=== PATIENT | female | born 1995 | race Caucasian/White ===

== ENCOUNTER 2020-08-04 01:08 | Emergency (ER) | payer MEDICAID, SELFPAY ==
--- NOTE | ~2020-08-04 | CT_ITS ---
EXAMINATION: CT ABDOMEN AND PELVIS WITH CONTRAST CLINICAL INFORMATION: Abdominal pain with history of kidney stones. COMPARISON: 06/03/2019 TECHNIQUE: Multidetector volumetric images were obtained from the superior aspect of the liver through the pubic symphysis following administration 85 mL of Omnipaque 350 intravenous contrast. Sagittal and coronal reformatted images were obtained on the technologist's workstation. Oral contrast: No This CT examination was performed using dose optimization techniques as appropriate, variously including the following: *Automated exposure control *Adjustment of mA and/or kV according to patient size (this includes techniques or standardized protocols for targeted exams where dose is matched to indication/reason for exam; i.e. extremities or head) *Use of iterative reconstruction technique DLP: 352 mGy-cm FINDINGS: LUNG BASES: The visualized lung bases are unremarkable. LIVER, GALLBLADDER, AND BILIARY TREE: The liver is normal in size, shape, and attenuation. No focal hepatic lesion or biliary ductal dilatation is present. Mild periportal edema. The gallbladder is unremarkable with no evidence of radiopaque gallstones, gallbladder wall thickening, or obvious pericholecystic inflammatory changes. PANCREAS: Unremarkable. SPLEEN: Unremarkable. ADRENAL GLANDS: Unremarkable. KIDNEYS AND URETERS: The kidneys are normal in size, shape, and attenuation. No hydronephrosis, hydroureter, or calculi seen. No perinephric stranding. There is a right lower pole 1.3 cm cyst with simple fluid attenuation. There is small peripheral calcification. BLADDER: Unremarkable. GASTROINTESTINAL TRACT: The stomach is unremarkable. Normal caliber small bowel. There is no obstruction. No colonic wall thickening or acute inflammatory change. No free air. Trace volume of pelvic free fluid. ABDOMINAL WALL: No significant hernia is appreciated. LYMPH NODES: Normal. VASCULAR: Unremarkable. PELVIC VISCERA: Retroverted uterus. No adnexal mass. Small amount of pelvic free fluid. OSSEOUS STRUCTURES: Unremarkable. CT/CT abdomen pelvis w con IMPRESSION: No acute finding in the abdomen or pelvis. No hydronephrosis. Right lower pole renal cyst measuring simple fluid with an associated calcification, likely a Bosniak 2 lesion.
[2020-08-04 01:10] VITALS: BP 120/79; PULSE 68; RESP 14; TEMP 36.5; O2SAT 100; BMI 20.1
[2020-08-04 01:38] LABS: Glucose Urine UA NEG (NEG); Leukocyte Esterase Urine NEG (NEG); Nitrite Urine NEG (NEG); PH 5.5 (5.0-8.0); Specific Gravity - Urine >= 1.030 (1.005-1.025); Urine Blood NEG (NEG); Urine Ketones NEG (NEG); Urine Protein NEG (NEG-TRACE)
[2020-08-04 01:39] LABS: Appearance Urine HAZY; Color Urine DARK YELLOW
[2020-08-04 01:40] LABS: MANUAL DIFF FLAG NO
[2020-08-04 01:41] LABS: Basophils Percent Auto 0.6 % (0-2); Eosinophils Absolute Auto 0.1 X10*3/uL (0.0-0.4); Eosinophils Percent Auto 2.5 % (0-4); Hematocrit 36.5 % (37-47); Hemoglobin 12.1 g/dl (12.0-16.0); Imm Gran Abs Auto 0.01 X10*3/uL (0.00-0.03); Imm Gran Pct Auto 0.2 % (0.0-0.4); Lymphocytes Absolute Auto 2.2 X10*3/uL (1.2-4.9); Lymphocytes Percent Auto 42.8 % (20-40); Mean Corpuscular HGB Conc 33.2 g/dl (31.0-35.0); Mean Corpuscular Hemoglobin 28.9 pg (27.0-33.0); Mean Corpuscular Volume 87.1 fL (80-98); Mean Platelet Volume 9.5 fL (9.4-12.3); Monocytes Absolute Auto 0.4 X10*3/uL (0.1-1.2); Monocytes Percent Auto 7.4 % (2-11); Neutrophils Absolute Auto 2.4 X10*3/uL (2.0-8.3); Neutrophils Percent Auto 46.5 % (45-73); Platelet Count 234 X10*3/uL (160-400); Red Blood Count 4.19 X10*6/uL (4.20-5.50); White Blood Count 5.2 X10*3/uL (4.8-10.8)
--- NOTE | 2020-08-04 01:41 | ED_ITS ---
HPI - Abdominal Pain General Chief Complaint: Abdominal Pain <NELLY Tee - Last Filed: 08/04/20 02:12> Stated Complaint: ABD PAIN <NELLY Tee - Last Filed: 08/04/20 02:12> Time Seen by Provider: 08/04/20 01:16 <NELLY Tee - Last Filed: 08/04/20 02:12> Source: patient, RN notes reviewed and old records reviewed <BRUNO Tee - Last Filed: 08/04/20 02:12> Mode of arrival: ambulatory <NELLY Tee - Last Filed: 08/04/20 02:12> Limitations: no limitations <NELLY Tee - Last Filed: 08/04/20 02:12> History of Present Illness HPI narrative: 25 years old female here today for complaining of upper and lower abdominal pain. Patient reports that the pain is diffuse and intermittent, pain started abruptly. Patient has a history of kidney stone of her right kidney. Seen by Urology before. Patient reports that she had a lithotripsy done before. Her pain started about an hour ago. Patient was at work. 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 Patient describes this pain as a sharp and stabbing pain. Patient thought that she had to go to the bathroom with bowel movement, however patient states that she became diaphoretic and sweaty. Pain then subsided. When in the ER patient reports that she had a diarrhea. Denies eating anything different. Denies any fever or chills. Denies flank pain. <NELLY Tee - Last Filed: 08/04/20 02:12> Related Data Allergies/Adverse Reactions: Allergies Allergy/AdvReac Type Severity Reaction Status Date / Time No Known Allergies Allergy Unverified 12/28/19 18:37 [No Known Allergies*] <NELLY Tee - Last Filed: 08/04/20 02:12> Physical Exam Vital Signs: Vital Signs: Last Vital Signs Temp 97.7 F 08/04/20 01:10 Pulse 68 08/04/20 01:10 Resp 14 08/04/20 01:10 BP 120/79 08/04/20 01:10 Pulse Ox 100 08/04/20 01:10 Body Mass Index 20.1 <NELLY Tee - Last Filed: 08/04/20 02:12> Vital Signs: Last Vital Signs Temp 97.7 F 08/04/20 01:10 Pulse 68 08/04/20 01:10 Resp 14 08/04/20 01:10 BP 120/79 08/04/20 01:10 Pulse Ox 100 08/04/20 01:10 Body Mass Index 20.1 <Deja Barron MD - Last Filed: 08/04/20 03:53> Course Course Course Narrative: 25 years old female with previous history of kidney stones with lithotripsy seen by Urology. Her last procedure was in August of 2019. Patient reports that the pain is the same as the last time when she was diagnosed with kidney stone. Patient reports that she has never had any diagnostic testing lik e renal ultrasound or CT scan. Patient reports that her urologist diagnosed her through her urine with high blood count in her urine. We will medicate her for pain with low-dose Toradol. Hydrate her with fluids. I will order abdominal ultrasound with contrast pending her negative urine test and kidney function test. Report given to Dr. Barron. <NELLY Tee - Last Filed: 08/04/20 02:12> Patient was re-evaluated all vital signs reviewed and workup was reviewed in its entirety. There are no acute findings to suggest intra-abdominal pathologies or UTI. Urine test is negative, and presumptive diagnosis is gastroenteritis with likely component of gastritis. Patient was treated with a GI cocktail and on re-evaluation reports some improvement in her symptoms. She has tolerated oral intake and will be discharged in stable condition with instructions to follow-up with her primary care provider. <Deja Barron MD - Last Filed: 08/04/20 03:53> MDM - Abdominal Pain Lab Data Result diagrams: : 08/04/20 01:35 08/04/20 01:35 <NELLY Tee - Last Filed: 08/04/20 02:12> Labs: Lab Results 04/25/21 04/25/21 04/25/21 Range/Units 01:22 01:22 01:35 WBC 5.2 (4.8-10.8) X10*3/uL RBC 4.19 L (4.20-5.50) X10*6/uL Hgb 12.1 (12.0-16.0) g/dl Hct 36.5 L (37-47) % MCV 87.1 (80-98) fL MCH 28.9 (27.0-33.0) pg MCHC 33.2 (31.0-35.0) g/dl RDW 12.0 (11.0-16.0) % Plt Count 234 (160-400) X10*3/uL MPV 9.5 (9.4-12.3) fL Immature Gran % (Auto) 0.2 (0.0-0.4) % Neut % (Auto) 46.5 (45-73) % Lymph % (Auto) 42.8 H (20-40) % [place] % (Auto) 7.4 (2-11) % Eos % (Auto) 2.5 (0-4) % Baso % (Auto) 0.6 (0-2) % Lymph # (Auto) 2.2 (1.2-4.9) X10*3/uL [place] # (Auto) 0.4 (0.1-1.2) X10*3/uL Eos # (Auto) 0.1 (0.0-0.4) X10*3/uL Baso # (Auto) 0.0 (0.0-0.2) X10*3/uL Abs Immat Gran (auto) 0.01 (0.00-0.03) X10*3/uL Absolute Neuts (auto) 2.4 (2.0-8.3) X10*3/uL Absolute Nucleated RBC 0.000 (0.0-0.012) X10*3/uL Nucleated RBC % (auto) 0.0 (0.0-0.2) /100WBC Hold Blue Top Sodium (135-145) mmol/L Potassium (3.3-5.1) mmol/L Chloride (96-108) mmol/L Carbon Dioxide (22-29) mmol/L Anion Gap (12-20) BUN (9-16) mg/dL Creatinine (0.5-1.4) mg/dL Estim Creat Clear Calc Estimated GFR Random Glucose (60-115) mg/dL Calcium (8.4-10.2) mg/dL Total Bilirubin (0.0-1.0) mg/dL AST (5-31) U/L ALT (0-31) U/L Alkaline Phosphatase (39-117) U/L Total Protein (6.5-8.0) g/dL Albumin (3.5-5.0) g/dL Lipase (8-78) U/L Urine Color DARK YELLOW Urine Appearance HAZY Urine pH 5.5 (5.0-8.0) Ur Specific [place] >= 1.030 H (1.005-1.025) Urine Protein NEG (NEG-TRACE) MG/DL Urine Glucose (UA) NEG (NEG) MG/DL Urine Ketones NEG (NEG) MG/DL Urine Blood NEG (NEG) Urine Nitrite NEG (NEG) Ur Leukocyte Esterase NEG (NEG) Urine RBC 0-2 (0) /HPF Urine WBC 0-2 (0-4) /HPF Ur Squamous Epith Cells 2+ /LPF Calcium Oxalate Crystal 2+ /LPF Urine Bacteria 1+ /LPF Urine Mucus 1+ /LPF Urine Yeast TRACE /HPF Urine Test NEGATIVE (NEGATIVE) 08/04/20 08/04/20 Range/Units 01:35 01:35 WBC (4.8-10.8) X10*3/uL RBC (4.20-5.50) X10*6/uL Hgb (12.0-16.0) g/dl Hct (37-47) % MCV (80-98) fL MCH (27.0-33.0) pg MCHC (31.0-35.0) g/dl RDW (11.0-16.0) % Plt Count (160-400) X10*3/uL MPV (9.4-12.3) fL Immature Gran % (Auto) (0.0-0.4) % Neut % (Auto) (45-73) % Lymph % (Auto) (20-40) % [place] % (Auto) (2-11) % Eos % (Auto) (0-4) % Baso % (Auto) (0-2) % Lymph # (Auto) (1.2-4.9) X10*3/uL [place] # (Auto) (0.1-1.2) X10*3/uL Eos # (Auto) (0.0-0.4) X10*3/uL Baso # (Auto) (0.0-0.2) X10*3/uL Abs Immat Gran (auto) (0.00-0.03) X10*3/uL Absolute Neuts (auto) (2.0-8.3) X10*3/uL Absolute Nucleated RBC (0.0-0.012) X10*3/uL Nucleated RBC % (auto) (0.0-0.2) /100WBC Hold Blue Top SEE NOTE Sodium 140 (135-145) mmol/L Potassium 3.6 (3.3-5.1) mmol/L Chloride 106 (96-108) mmol/L Carbon Dioxide 24 (22-29) mmol/L Anion Gap 14 (12-20) BUN 10 (9-16) mg/dL Creatinine 0.71 (0.5-1.4) mg/dL Estim Creat Clear Calc 94.5 Estimated GFR > 60 Random Glucose 106 (60-115) mg/dL Calcium 9.3 (8.4-10.2) mg/dL Total Bilirubin 0.5 (0.0-1.0) mg/dL AST 15 (5-31) U/L ALT 14 (0-31) U/L Alkaline Phosphatase 47 (39-117) U/L Total Protein 7.1 (6.5-8.0) g/dL Albumin 4.4 (3.5-5.0) g/dL Lipase 14 (8-78) U/L Urine Color Urine Appearance Urine pH (5.0-8.0) Ur Specific [place] (1.005-1.025) Urine Protein (NEG-TRACE) MG/DL Urine Glucose (UA) (NEG) MG/DL Urine Ketones (NEG) MG/DL Urine Blood (NEG) Urine Nitrite (NEG) Ur Leukocyte Esterase (NEG) Urine RBC (0) /HPF Urine WBC (0-4) /HPF Ur Squamous Epith Cells /LPF Calcium Oxalate Crystal /LPF Urine Bacteria /LPF Urine Mucus /LPF Urine Yeast /HPF Urine Test (NEGATIVE) <Dipika Rushing, [employer] - Last Filed: 08/04/20 02:12> Lab Results 08/04/20 08/04/20 08/04/20 Range/Units 01:22 01:22 01:35 WBC 5.2 (4.8-10.8) X10*3/uL RBC 4.19 L (4.20-5.50) X10*6/uL Hgb 12.1 (12.0-16.0) g/dl Hct 36.5 L (37-47) % MCV 87.1 (80-98) fL MCH 28.9 (27.0-33.0) pg MCHC 33.2 (31.0-35.0) g/dl RDW 12.0 (11.0-16.0) % Plt Count 234 (160-400) X10*3/uL MPV 9.5 (9.4-12.3) fL Immature Gran % (Auto) 0.2 (0.0-0.4) % Neut % (Auto) 46.5 (45-73) % Lymph % (Auto) 42.8 H (20-40) % [place] % (Auto) 7.4 (2-11) % Eos % (Auto) 2.5 (0-4) % Baso % (Auto) 0.6 (0-2) % Lymph # (Auto) 2.2 (1.2-4.9) X10*3/uL [place] # (Auto) 0.4 (0.1-1.2) X10*3/uL Eos # (Auto) 0.1 (0.0-0.4) X10*3/uL Baso # (Auto) 0.0 (0.0-0.2) X10*3/uL Abs Immat Gran (auto) 0.01 (0.00-0.03) X10*3/uL Absolute Neuts (auto) 2.4 (2.0-8.3) X10*3/uL Absolute Nucleated RBC 0.000 (0.0-0.012) X10*3/uL Nucleated RBC % (auto) 0.0 (0.0-0.2) /100WBC Hold Blue Top Sodium (135-145) mmol/L Potassium (3.3-5.1) mmol/L Chloride (96-108) mmol/L Carbon Dioxide (22-29) mmol/L Anion Gap (12-20) BUN (9-16) mg/dL Creatinine (0.5-1.4) mg/dL Estim Creat Clear Calc Estimated GFR Random Glucose (60-115) mg/dL Calcium (8.4-10.2) mg/dL Total Bilirubin (0.0-1.0) mg/dL AST (5-31) U/L ALT (0-31) U/L Alkaline Phosphatase (39-117) U/L Total Protein (6.5-8.0) g/dL Albumin (3.5-5.0) g/dL Lipase (8-78) U/L Urine Color DARK YELLOW Urine Appearance HAZY Urine pH 5.5 (5.0-8.0) Ur Specific [place] >= 1.030 H (1.005-1.025) Urine Protein NEG (NEG-TRACE) MG/DL Urine Glucose (UA) NEG (NEG) MG/DL Urine Ketones NEG (NEG) MG/DL Urine Blood NEG (NEG) Urine Nitrite NEG (NEG) Ur Leukocyte Esterase NEG (NEG) Urine RBC 0-2 (0) /HPF Urine WBC 0-2 (0-4) /HPF Ur Squamous Epith Cells 2+ /LPF Calcium Oxalate Crystal 2+ /LPF Urine Bacteria 1+ /LPF Urine Mucus 1+ /LPF Urine Yeast TRACE /HPF Urine Test NEGATIVE (NEGATIVE) 08/04/20 08/04/20 Range/Units 01:35 01:35 WBC (4.8-10.8) X10*3/uL RBC (4.20-5.50) X10*6/uL Hgb (12.0-16.0) g/dl Hct (37-47) % MCV (80-98) fL MCH (27.0-33.0) pg MCHC (31.0-35.0) g/dl RDW (11.0-16.0) % Plt Count (160-400) X10*3/uL MPV (9.4-12.3) fL Immature Gran % (Auto) (0.0-0.4) % Neut % (Auto) (45-73) % Lymph % (Auto) (20-40) % [place] % (Auto) (2-11) % Eos % (Auto) (0-4) % Baso % (Auto) (0-2) % Lymph # (Auto) (1.2-4.9) X10*3/uL [place] # (Auto) (0.1-1.2) X10*3/uL Eos # (Auto) (0.0-0.4) X10*3/uL Baso # (Auto) (0.0-0.2) X10*3/uL Abs Immat Gran (auto) (0.00-0.03) X10*3/uL Absolute Neuts (auto) (2.0-8.3) X10*3/uL Absolute Nucleated RBC (0.0-0.012) X10*3/uL Nucleated RBC % (auto) (0.0-0.2) /100WBC Hold Blue Top SEE NOTE Sodium 140 (135-145) mmol/L Potassium 3.6 (3.3-5.1) mmol/L Chloride 106 (96-108) mmol/L Carbon Dioxide 24 (22-29) mmol/L Anion Gap 14 (12-20) BUN 10 (9-16) mg/dL Creatinine 0.71 (0.5-1.4) mg/dL Estim Creat Clear Calc 94.5 Estimated GFR > 60 Random Glucose 106 (60-115) mg/dL Calcium 9.3 (8.4-10.2) mg/dL Total Bilirubin 0.5 (0.0-1.0) mg/dL AST 15 (5-31) U/L ALT 14 (0-31) U/L Alkaline Phosphatase 47 (39-117) U/L Total Protein 7.1 (6.5-8.0) g/dL Albumin 4.4 (3.5-5.0) g/dL Lipase 14 (8-78) U/L Urine Color Urine Appearance Urine pH (5.0-8.0) Ur Specific [place] (1.005-1.025) Urine Protein (NEG-TRACE) MG/DL Urine Glucose (UA) (NEG) MG/DL Urine Ketones (NEG) MG/DL Urine Blood (NEG) Urine Nitrite (NEG) Ur Leukocyte Esterase (NEG) Urine RBC (0) /HPF Urine WBC (0-4) /HPF Ur Squamous Epith Cells /LPF Calcium Oxalate Crystal /LPF Urine Bacteria /LPF Urine Mucus /LPF Urine Yeast /HPF Urine Test (NEGATIVE) <Deja Barron MD - Last Filed: 08/04/20 03:53> Discharge Plan Discharge Clinical Impression: Gastroenteritis, Gastritis <Dipika Salas DIANELYS RushingJENNIFER - Last Filed: 08/04/20 02:12> Patient Disposition: Home, Self-Care <Dipika NELLY Larkin - Last Filed: 08/04/20 02:12> Instructions: Gastritis (ED), Diet for Stomach Ulcers and Gastritis (ED), Gastroenteritis (ED) <DipikaDIANELYS QuachJENNIFER - Last Filed: 08/04/20 02:12> Additional Instructions: Please follow-up with your primary care provider in the next 2-3 days for re-evaluation. Return to the emergency department for any acute worsening of your symptoms. <NELLY Tee - Last Filed: 08/04/20 02:12> Referrals: [facility] [Primary Care Provider] - 2 days (Re-evaluation after seen for suspected gastritis/gastroenteritis.) <DipikaDIANELYS QuachJENNIFER - Last Filed: 08/04/20 02:12> PMFSH Past Medical History Medical History: Medical History (Updated 08/04/20 @ 03:53 by Deja Barron MD) Kidney stone <DipikaBRUNO QuachSAMY - Last Filed: 08/04/20 02:12> Social History Social History: Social History (Updated 08/04/20 @ 01:14 by Ade Singh RN) Alcohol intake: never Smoking Status: Never smoker Have you been hit, kicked, punched, or otherwise hurt by someone within the past year? If so, by whom?: No Do you feel safe in your current relationship?: No Current Relationship Is there a partner from a previous relationship who is making you feel unsafe now?: No Are you made to feel afraid or neglected: No Advance Directives: No <BRUNO TeeSAMY - Last Filed: 08/04/20 02:12>
[2020-08-04] MEDS: Ketorolac Tromethamine 15 MG/ML VIAL IVPUSH (01:42)
[2020-08-04] MEDS: 0.9 % Sodium Chloride 1,000 ML 999 ML IV (01:42)
[2020-08-04 02:08] LABS: Bacteria Urine 1+ /LPF; Calcium Oxalate Crystals Urine 2+ /LPF; Mucus Urine 1+ /LPF; RBC Urine 0-2 /HPF (0); Squamous Epithelial Cell Urine 2+ /LPF; WBC Urine 0-2 /HPF (0-4)
[2020-08-04 02:14] LABS: UPreg QC Valid YES; Urine Pregnancy NEGATIVE (NEGATIVE)
[2020-08-04 02:18] LABS: Alanine Aminotransferase 14 U/L (0-31); Albumin Level 4.4 g/dL (3.5-5.0); Alkaline Phosphatase 47 U/L (39-117); Anion Gap 14 (12-20); Aspartate Amino Transferase 15 U/L (5-31); Bilirubin Total 0.5 mg/dL (0.0-1.0); Blood Urea Nitrogen 10 mg/dL (9-16); Calcium 9.3 mg/dL (8.4-10.2); Carbon Dioxide 24 mmol/L (22-29); Chloride 106 mmol/L (96-108); Creatinine Clr Calc Pharmacy 94.5; Estimated Glomerular Filt Rate > 60; Glucose Random 106 mg/dL (60-115); Lipase 14 U/L (8-78); Potassium 3.6 mmol/L (3.3-5.1); Sodium 140 mmol/L (135-145); Total Protein 7.1 g/dL (6.5-8.0)
[2020-08-04] MEDS: iohexoL 350 MG/ML 100 ML INFUS..BTL 85 ML IV (02:47)
--- NOTE | 2020-08-04 03:23 | PC.NURSE ---
PT RETURNS FROM CT. NS UP AND INFUSED W/O DIFFICULTY. PT C/O PAIN TO ABD AREA. MD AWARE. WILL CONTINUE TO MONITOR PT.
[2020-08-04] MEDS: Magnesium Hydrox/Alum Hydrox 30 ML ORAL.SUSP PO (04:00)
[2020-08-04] MEDS: Lidocaine HCl Viscous 2 % 15 ML SOLUTION 10 ML MUCOUS MEM (04:00)
== END 2020-08-04 04:13 | disposition home or self-care (01) ==
PROVIDERS: Nurse Practitioner Family; Emergency Provider Student in an Organized Health Care Education/Training Program
DX: K52.9 Noninfective gastroenteritis and colitis, unspecified (principal); R10.9 Unspecified abdominal pain; K29.70 Gastritis, unspecified, without bleeding; Z87.442 Personal history of urinary calculi; Z79.899 Other long term (current) drug therapy
CPT/HCPCS: 36415; 74177; 80053; 81001; 81025; 83690; 85025; 96360; 96361; 99283; 99284; J1885; Q9967

== ENCOUNTER 2020-08-27 09:13 | Outpatient (REF) | payer MEDICAID, SELFPAY ==
[2020-08-28 10:05] LABS: CT PCR NOT DETECTED (Not Detect.); NG PCR NOT DETECTED (Not Detect.)
[2020-08-31 11:36] LABS: HPV 16 RNA NOT DETECTED (NOT DETECTED); HPV mRNA E6/E7 rflx Detected (Not Detected)
== END 2020-08-27 09:14 | disposition home or self-care (01) ==
LOC: HO.LAB 09:13
PROVIDERS: Visit Provider Advanced Practice Midwife
DX: Z23 Encounter for immunization (principal); Z12.4 Encounter for screening for malignant neoplasm of cervix; Z11.51 Encounter for screening for human papillomavirus (HPV); Z11.3 Encounter for screening for infections with a predominantly sexual mode of transmission; Z87.42 Personal history of other diseases of the female genital tract; Z87.59 Personal history of other complications of pregnancy, childbirth and the puerperium
CPT/HCPCS: 87491; 87591; 87624; 87625; 88142; 90471

== ENCOUNTER → 2020-10-31 11:00 | Outpatient (BNVA) | payer MEDICAID, SELFPAY | PROVIDERS: Visit Provider Advanced Practice Midwife | DX: Z23 Encounter for immunization (principal) | CPT/HCPCS: 90471; 99211 ==

== ENCOUNTER 2021-02-13 21:14 | Emergency (ER) | payer MEDICAID, SELFPAY ==
--- NOTE | ~2021-02-13 | XR_ITS ---
EXAMINATION: XR CHEST CLINICAL INFORMATION: . Shortness of breath. COMPARISON: None TECHNIQUE: Frontal view of the chest was obtained. FINDINGS: The lungs are clear. The cardiomediastinal silhouette is normal in size. There is no pleural effusion or pneumothorax. No acute osseous abnormality. XR/XR chest 1V IMPRESSION: No acute cardiopulmonary findings.
[2021-02-13 21:17] VITALS: BP 120/68; PULSE 100; RESP 24; TEMP 36.6; O2SAT 100; BMI 22.8
[2021-02-13 21:47] LABS: COVID-19 Test Negative (Negative)
--- NOTE | 2021-02-13 22:24 | ECG_ITS ---
Test Reason : chest pain Blood Pressure : / mmHG Vent. Rate : 093 BPM Atrial Rate : 093 BPM P-R Int : 132 ms QRS Dur : 082 ms QT Int : 342 ms P-R-T Axes : 070 036 043 degrees QTc Int : 425 ms Normal sinus rhythm Normal ECG No previous ECGs available Referred By: Faviola Mohr Electronically Signed By:AMELIA MARKS MD
[2021-02-13 22:51] LABS: MANUAL DIFF FLAG NO
--- NOTE | 2021-02-13 22:51 | ED_ITS ---
HPI - URI/Sore Throat General Chief Complaint: Upper Respiratory Symptoms Stated Complaint: dry cough Time Seen by Provider: 02/13/21 22:06 Source: patient Mode of arrival: ambulatory History of Present Illness HPI Narrative: 25-year-old female at 5 weeks gestation presenting to the ED complaining of dry cough and SOB x a few days. Reports feels like she cannot catch her breath, used boyfriend albuterol inhaler without relief. Denies f ever, chills, chest pain medically edema calf pain, history of blood clots, cigarette smoking, abdominal pain, vaginal bleeding, vaginal discharge MD elicited complaint: cough Related Data Previous Rx's Medication Instructions Recorded vitamin with calcium 1 tab PO DAILY #90 tab 08/27/20 no.72-iron 27 mg-folic acid 1 mg tablet ( Vitamins Plus Low Iron) Allergies Allergy/AdvReac Type Severity Reaction Status Date / Time No Known Allergies Allergy Verified 08/27/20 09:25 [No Known Allergies*] Review of Systems Review of Systems: Constitutional: No Fever, No Chills, No Fatigue, No Malaise ENT/Mouth: No Ear Pain, No Nasal Congestion, No sore throat, No Rhinorrhea Eyes: No Eye Pain, No Swelling, No Redness Cardiovascular: No Chest Pain, + SOB, No Dyspnea on Exertion, No Orthopnea, No Edema, + Palpitations Respiratory: + Cough, No Sputum, No Wheezing, No Smoke Exposure, No Dyspnea Gastrointestinal: No Nausea, No Vomiting, No Diarrhea, No Constipation, No Abdominal pain Genitourinary: No irregular bleeding, No Dysuria,No Hematuria Musculoskeletal: No joint pain, No Myalgias, No Joint Swelling Skin: No Skin Lesions, No rash Neuro: No Weakness,No Dizziness, No Headache Yes all other systems are reviewed and are negative [facility] Past Medical History Attestation statement: The following information was validated with the patient. Medical History Kidney stone Social History Social History (Updated 08/27/20 @ 09:26 by Farzad Hebert CMA) Alcohol intake: never Advance Directives: No Advance Directives Information Provided: No Patient : Yes Gender identity: Female Physical Exam Vital Signs: Vital Signs: Last Vital Signs Temp 97.8 F 02/13/21 21:17 Pulse 100 02/13/21 21:17 Resp 24 H 02/13/21 21:17 BP 120/68 02/13/21 21:17 Pulse Ox 100 02/13/21 21:17 Body Mass Index 22.8 Const: General: cooperative, healthy appearing and no acute distress Orientation/consciousness: patient oriented x3 Limitations: no limitations HENMT: Head: Yes normal to inspection Ears: hearing grossly normal bilaterally General nose exam: Normal external nose present Face and sinus: Yes normal facial exam Eyes: General: appearance normal, both eyes and all related structures EOM: EOMs intact bilaterally Neck: Neck: Yes normal visual inspection and Yes no meningeal signs Resp: Effort & Inspection: normal respiratory effort, no respiratory distress and tachypneic Auscultation: clear to auscultation bilaterally, no crackles, no rales, no rhonchi and no wheezes Cardio: Rate: regular rate Heart sounds: S1 normal heart sound present and S2 normal heart sound present GI: Inspection: Yes normal to inspection Palpation (GI): Soft to palpation and nontender Skin: Rashes: no rashes Wounds: no wounds Neuro: General: patient oriented x3 and no meningeal signs Gait exam (Neuro): Normal gait present Extrem: General: Yes normal to inspection, Yes no pedal edema and Yes no calf tenderness Course Course Course Narrative: XR chest 1V IMPRESSION: No acute cardiopulmonary findings. -chronic leukopenia of 4 6, H/H stable. -COVID-19 negative -2345--D-dimer negative, PE unlikely, troponin negative, labs otherwise unremarkable. Discussed with patient worrisome signs and symptoms and strict return precautions and need to follow-up with OBGYN, she verbalized understanding feel safe for discharge home at this time MDM - URI/Sore Throat MDM Narrative Medical decision making narrative: 25-year-old female at 5 weeks gestation presenting to the ED complaining of dry cough and SOB x a few days. Reports feels like she cannot catch her breath, used boyfriend albuterol inhaler without relief. On exam tachypneic, heart rate of 100, NAD, lungs CTA, no pedal edema/calf tenderness. Patient denies any related complaints at this time. Concern for viral syndrome/COVID-19 vs PE. Symptoms atypical for ACS. Rule out pneumonia Low concern for severe sepsis Plan: EKG, labs, D-dimer, CXR, re-evaluate Medical Records Attestation: I reviewed the patient's medical records. Lab Data Attestation: I reviewed the patient's lab results. Result diagrams: 02/13/21 22:45 02/13/21 22:45 Labs: Lab Results 02/13/21 02/13/21 02/13/21 Range/Units 21:25 22:45 22:45 WBC 4.6 L (4.8-10.8) X10*3/uL RBC 4.11 L (4.20-5.50) X10*6/uL Hgb 12.0 (12.0-16.0) g/dl Hct 36.0 L (37.0-47.0) % MCV 87.6 (80.0-98.0) fL MCH 29.2 (27.0-33.0) pg MCHC 33.3 (31.0-35.0) g/dl RDW 12.4 (11.0-16.0) % Plt Count 228 (160-400) X10*3/uL MPV 9.3 L (9.4-12.3) fL Immature Gran % (Auto) 0.2 (0.0-0.4) % Neut % (Auto) 52.5 (45-73) % Lymph % (Auto) 32.0 (20-40) % [place] % (Auto) 11.7 H (2-11) % Eos % (Auto) 3.0 (0-4) % Baso % (Auto) 0.6 (0-2) % Lymph # (Auto) 1.5 (1.2-4.9) X10*3/uL [place] # (Auto) 0.5 (0.1-1.2) X10*3/uL Eos # (Auto) 0.1 (0.0-0.4) X10*3/uL Baso # (Auto) 0.0 (0.0-0.2) X10*3/uL Abs Immat Gran (auto) 0.01 (0.00-0.03) X10*3/uL Absolute Neuts (auto) 2.4 (2.0-8.3) x10*3/uL Absolute Nucleated RBC 0.000 (0.0-0.012) X10*3/uL Nucleated RBC % (auto) 0.0 (0.0-0.2) /100WBC D-Dimer < 200 NG/ML Sodium (135-145) mmol/L Potassium (3.3-5.1) mmol/L Chloride (96-108) mmol/L Carbon Dioxide (22-29) mmol/L Anion Gap (12-20) BUN (9-16) mg/dL Creatinine (0.5-1.4) mg/dL Estim Creat Clear Calc Estimated GFR Random Glucose (60-115) mg/dL Calcium (8.4-10.2) mg/dL Troponin I High Sens (<3.5-17.0) ng/L Beta HCG, Quant mIU/mL COVID-19 ([facility]) Negative (Negative) COVID-19 Clin Com See Note 02/13/21 02/13/21 Range/Units 22:45 22:45 WBC (4.8-10.8) X10*3/uL RBC (4.20-5.50) X10*6/uL Hgb (12.0-16.0) g/dl Hct (37.0-47.0) % MCV (80.0-98.0) fL MCH (27.0-33.0) pg MCHC (31.0-35.0) g/dl RDW (11.0-16.0) % Plt Count (160-400) X10*3/uL MPV (9.4-12.3) fL Immature Gran % (Auto) (0.0-0.4) % Neut % (Auto) (45-73) % Lymph % (Auto) (20-40) % [place] % (Auto) (2-11) % Eos % (Auto) (0-4) % Baso % (Auto) (0-2) % Lymph # (Auto) (1.2-4.9) X10*3/uL [place] # (Auto) (0.1-1.2) X10*3/uL Eos # (Auto) (0.0-0.4) X10*3/uL Baso # (Auto) (0.0-0.2) X10*3/uL Abs Immat Gran (auto) (0.00-0.03) X10*3/uL Absolute Neuts (auto) (2.0-8.3) x10*3/uL Absolute Nucleated RBC (0.0-0.012) X10*3/uL Nucleated RBC % (auto) (0.0-0.2) /100WBC D-Dimer NG/ML Sodium 138 (135-145) mmol/L Potassium 3.8 (3.3-5.1) mmol/L Chloride 107 (96-108) mmol/L Carbon Dioxide 23 (22-29) mmol/L Anion Gap 12 (12-20) BUN 8 L (9-16) mg/dL Creatinine 0.69 (0.5-1.4) mg/dL Estim Creat Clear Calc 97.7 Estimated GFR > 60 Random Glucose 95 (60-115) mg/dL Calcium 9.0 (8.4-10.2) mg/dL Troponin I High Sens < 3.5 (<3.5-17.0) ng/L Beta HCG, Quant 70647 mIU/mL COVID-19 ([facility]) (Negative) COVID-19 Clin Com ECG Data Attestation: I personally reviewed and interpreted this ECG as follows: ECG interpretation date: 02/13/21 ECG interpretation time: 22:38 Interpretation: EKG normal sinus rhythm with a rate of 93. QRS 82. QTC 425 Nonischemic-no STEMI Discharge Plan Discharge Clinical Impression: Upper respiratory infection Patient Disposition: Home, Self-Care Instructions: Viral Syndrome (ED) Additional Instructions: Your blood work and chest x-ray were reassuring today in the emergency department You tested negative for COVID-19 Please stay hydrated at home Is very important for you to follow-up with her OBGYN If her symptoms persist or worsen, have constant worsening shortness of breath, chest pain, fever, chills, or productive cough please return to the ED Prescriptions: No Action Vitamin Plus Low Iron 27 mg iron- 1 mg tablet 1 tab PO DAILY Qty: 90 RF: 3 Referrals: Physician,Esteban J [Primary Care Provider] - 2 days Ryan Jacobs MD [Physician] - 2 days
[2021-02-13 22:53] LABS: Basophils Percent Auto 0.6 % (0-2); Eosinophils Absolute Auto 0.1 X10*3/uL (0.0-0.4); Imm Gran Abs Auto 0.01 X10*3/uL (0.00-0.03); Imm Gran Pct Auto 0.2 % (0.0-0.4); Lymphocytes Absolute Auto 1.5 X10*3/uL (1.2-4.9); Mean Corpuscular HGB Conc 33.3 g/dl (31.0-35.0); Mean Corpuscular Hemoglobin 29.2 pg (27.0-33.0); Mean Corpuscular Volume 87.6 fL (80.0-98.0); Mean Platelet Volume 9.3 fL (9.4-12.3); Monocytes Absolute Auto 0.5 X10*3/uL (0.1-1.2); Monocytes Percent Auto 11.7 % (2-11); Neutrophils Absolute Auto 2.4 x10*3/uL (2.0-8.3); Neutrophils Percent Auto 52.5 % (45-73); Platelet Count 228 X10*3/uL (160-400); Red Blood Count 4.11 X10*6/uL (4.20-5.50); Red Cell Distribution Width 12.4 % (11.0-16.0); White Blood Count 4.6 X10*3/uL (4.8-10.8)
[2021-02-13 23:08] LABS: Anion Gap 12 (12-20); Blood Urea Nitrogen 8 mg/dL (9-16); Carbon Dioxide 23 mmol/L (22-29); Chloride 107 mmol/L (96-108); Creatinine Clr Calc Pharmacy 97.7; D Dimer < 200 NG/ML; Estimated Glomerular Filt Rate > 60; Glucose Random 95 mg/dL (60-115); Potassium 3.8 mmol/L (3.3-5.1); Sodium 138 mmol/L (135-145)
[2021-02-13 23:16] LABS: HCG Quantitative 13534 mIU/mL
[2021-02-13 23:34] LABS: Troponin-I High Sensitivity < 3.5 ng/L (<3.5-17.0)
== END 2021-02-14 00:51 | disposition home or self-care (01) ==
PROVIDERS: Physician Assistant; Emergency Provider Internal Medicine
DX: O99.511 Diseases of the respiratory system complicating pregnancy, first trimester (principal); J06.9 Acute upper respiratory infection, unspecified; Z3A.01 Less than 8 weeks gestation of pregnancy; Z20.822 Contact with and (suspected) exposure to COVID-19
CPT/HCPCS: 36415; 71045; 80048; 84484; 84702; 85025; 85379; 87635; 93005; 99283; 99284

== ENCOUNTER → 2021-02-20 09:05 | Outpatient (BNVA) | payer MEDICAID, SELFPAY | PROVIDERS: Visit Provider Advanced Practice Midwife | DX: Z34.90 Encounter for supervision of normal pregnancy, unspecified, unspecified trimester (principal); R05.9 Cough, unspecified; R87.820 Cervical low risk human papillomavirus (HPV) DNA test positive; Z87.798 Personal history of other (corrected) congenital malformations | CPT/HCPCS: 99212 ==

== ENCOUNTER 2021-02-21 12:42 | Outpatient (REF) | payer MEDICAID, SELFPAY ==
--- NOTE | ~2021-02-21 | US_ITS ---
EXAMINATION: OBSTETRICAL ULTRASOUND, FIRST TRIMESTER HISTORY: 25-year-old at the approximately 6 weeks of gestation Uncertain dates and viability LMP: 01/04/2021 COMPARISON: None TECHNIQUE: Real time transabdominal imaging with color and M-mode Doppler. FINDINGS: A single, live IUP CRL of 5.6 mm c/w 6.3wks is noted. Heart Rate: 124 beats per minute. Both maternal ovaries are seen and appear normal. GESTATIONAL AGE: 1. GA from LMP: 6.6 wks 2. GA from AUA: 6.3 wks ESTIMATED DATE OF DELIVERY: 1. MALVIN from LMP: 10/11/2021 2. MALVIN from AUA: 10/14/2021 US/US OB pelvic and transvaginal IMPRESSION: 1. A single live IUP 2. CRL corresponds to 6.3 weeks of gestation. This confirms her LMP based MALVIN of 10/11/2021 3. Normal ovaries Thank you very much for this referral. This note was generated with a voice recognition program. Please excuse any errors which may have been overlooked during my review of this note. Sometimes these errors may affect the content or meaning of a given sentence.
== END 2021-02-21 12:43 | disposition home or self-care (01) ==
LOC: HO.US 12:42
PROVIDERS: Visit Provider Obstetrics & Gynecology
DX: Z34.90 Encounter for supervision of normal pregnancy, unspecified, unspecified trimester (principal)
CPT/HCPCS: 76801; 76817

== ENCOUNTER → 2021-02-26 15:06 | Outpatient (BNVA) | payer MEDICAID, SELFPAY | PROVIDERS: Visit Provider Obstetrics & Gynecology | DX: Z34.90 Encounter for supervision of normal pregnancy, unspecified, unspecified trimester (principal) | CPT/HCPCS: 99212 ==

== ENCOUNTER 2021-03-17 14:01 | Outpatient (REF) | payer MEDICAID, SELFPAY ==
[2021-03-17 15:48] LABS: Hematocrit 33.5 % (37.0-47.0); Hemoglobin 11.3 g/dl (12.0-16.0); Mean Corpuscular HGB Conc 33.7 g/dl (31.0-35.0); Mean Corpuscular Hemoglobin 29.4 pg (27.0-33.0); Mean Platelet Volume 9.6 fL (9.4-12.3); Platelet Count 228 X10*3/uL (160-400); Red Blood Count 3.85 X10*6/uL (4.20-5.50); Red Cell Distribution Width 12.6 % (11.0-16.0); White Blood Count 4.8 X10*3/uL (4.8-10.8)
[2021-03-17 16:31] LABS: Syphilis Screen Nonreactive (Nonreactive)
[2021-03-17 17:11] LABS: Amphetamine Screen Urine Not Detected (Not Detect); Barbiturates, Urine Not Detected (Not Detect); Benzodiazepines Screen Urine Not Detected (Not Detect); Cannabinoid Screen Urine Not Detected (Not Detect); Cocaine Screen Urine Not Detected (Not Detect); Fentanyl, urine Not Detected (Not Detect); Opiate Screen Urine Not Detected (Not Detect); Phencyclidine Screen Urine Not Detected (Not Detect)
[2021-03-18 04:15] LABS: HBsAGNum1 0.27 S/CO (0.00-0.99); HIV AB/AG Nonreactive (Nonreactive); HIV Num 1 0.08 S/CO (0.00-0.99); Hepatitis B Surface Antigen Negative (Negative); ~HepC Num1 0.13 S/CO (0.00-0.79); ~Hepatitis C Antibody Nonreactive (Nonreactive)
[2021-03-19 05:01] LABS: Rubella IgG Antibody 2.93 Index
== END 2021-03-17 14:02 | disposition home or self-care (01) ==
LOC: HO.LAB 14:01
PROVIDERS: Visit Provider Advanced Practice Midwife
DX: Z34.91 Encounter for supervision of normal pregnancy, unspecified, first trimester (principal); Z3A.09 9 weeks gestation of pregnancy
CPT/HCPCS: 80307; 85027; 86762; 86780; 86787; 86803; 86850; 86900; 86901; 87086; 87340; 87389; 99212

== ENCOUNTER 2021-03-28 13:28 | Outpatient (REF) | payer MEDICAID, SELFPAY ==
--- NOTE | ~2021-03-28 | US_ITS ---
EXAMINATION: OBSTETRICAL ULTRASOUND, FIRST TRIMESTER HISTORY: 25-year-old at the 11.6 weeks of gestation NT screening COMPARISON: 02/21/2021 TECHNIQUE: Real time transabdominal imaging with color and M-mode Doppler. FINDINGS: A single, live IUP CRL of 51.7 mm c/w 12.0wks is noted. Heart Rate: 163 beats per minute. Normal yolk sac seen. NT was 1.15.mm. NB Present The embryo appears sonographically wnl for this GA. Both maternal ovaries are seen and appear normal. GESTATIONAL AGE: 1. Established GA: 11.6 wks 2. GA from AUA: 12.0 wks ESTIMATED DATE OF DELIVERY: 1. Established MALVIN: 10/11/2021 2. MALVIN from AUA: 10/10/2021 US/US OB 1T nuc measure IMPRESSION: 1. Single, live IUP 2. Size equals dates 3. NT of 1.15 mm MFM Consultation: I reviewed the ultrasound findings along with significance of NT measurement. The NT of less than 3mm is generally reassuring. However, the sensitivity for T21 detection is only 60%. I reviewed the availability of serum aneuploidy screening which includes cell-free DNA and placental protein based tests. I discussed the sensitivity, false-positive rate, and other limitations associated with each test. I also reviewed the availability of invasive diagnostic tests that are associated small but definite risk of miscarriage. We also reviewed the differences between screening tests and diagnostic tests. After our discussion, she opted for the First trimester screening that is based on cell-free DNA or non-invasive testing (NIPT). The result will be faxed to your office in approximately 7 days. A follow up at 18 weeks for survey has been scheduled. Thank you very much for this referral. Total time 20 minutes. The time spent was devoted to counseling the patient about the disease and diagnosis, coordinating care including reviewing her records, pertinent lab data and studies, as well as discussing diagnostic evaluation and workup, plan therapeutic interventions and future disposition of care. This includes any additional research needed to obtain further information in formulating the plan of care of this patient. This note was generated with a voice recognition program. Please excuse any errors which may have been overlooked during my review of this note. Sometimes these errors may affect the content or meaning of a given sentence.
== END 2021-03-28 13:29 | disposition home or self-care (01) ==
LOC: HO.US 13:28
PROVIDERS: Visit Provider Advanced Practice Midwife
DX: Z87.798 Personal history of other (corrected) congenital malformations (principal)
CPT/HCPCS: 76813

== ENCOUNTER 2021-04-14 08:58 | Outpatient (REF) | payer MEDICAID, SELFPAY ==
[2021-04-14 14:56] LABS: CT PCR NOT DETECTED (Not Detect.); NG PCR NOT DETECTED (Not Detect.)
[2021-04-15 08:32] LABS: BV Int Neg Control Negative (Negative); BV Int Pos Control Positive (Positive)
== END 2021-04-14 08:59 | disposition home or self-care (01) ==
LOC: HO.LAB 08:58
PROVIDERS: Visit Provider Advanced Practice Midwife
DX: O99.891 Other specified diseases and conditions complicating pregnancy (principal); N87.0 Mild cervical dysplasia; O23.01 Infections of kidney in pregnancy, first trimester; N20.0 Calculus of kidney; Z3A.13 13 weeks gestation of pregnancy; Z87.798 Personal history of other (corrected) congenital malformations; Z87.42 Personal history of other diseases of the female genital tract
CPT/HCPCS: 87480; 87491; 87510; 87591; 87660; 99212

== ENCOUNTER → 2021-05-12 10:43 | Outpatient (BNVA) | payer MEDICAID, SELFPAY | PROVIDERS: Visit Provider Advanced Practice Midwife | DX: O99.012 Anemia complicating pregnancy, second trimester (principal); D64.9 Anemia, unspecified; O99.342 Other mental disorders complicating pregnancy, second trimester; F41.9 Anxiety disorder, unspecified; F32.A Depression, unspecified; O09.292 Supervision of pregnancy with other poor reproductive or obstetric history, second trimester; Z3A.17 17 weeks gestation of pregnancy; Z79.899 Other long term (current) drug therapy | CPT/HCPCS: 81003; 99212 ==

== ENCOUNTER 2021-05-16 12:17 | Outpatient (REF) | payer MEDICAID, SELFPAY ==
--- NOTE | ~2021-05-16 | US_ITS ---
EXAMINATION: US OBSTETRICAL CLINICAL INFORMATION: 26-year-old at the 18.6 weeks of gestation Screening for anomaly COMPARISON: 03/28/2021 TECHNIQUE: Real-time transabdominal ultrasound was performed using C1-5 megahertz transducer. FINDINGS: A single, active, fetus is seen in vertex presentation. The placenta is posterior without previa, and the amniotic fluid volume is wnl. MEASUREMENTS: 1. Biparietal Diameter: 3. cm; 18.0 wks 2. Occipital Frontal Diameter: 5.2 cm 3. Head Circumference: 15.4 cm; 18.3 wks 4. Abdominal Circumference: 12.6 cm; 18.2 wks 5. Femur Length: 2.6 cm; 18.1 wks 6. Humerus Length: 2.6 cm; 18.1 wks 7. Tibia Length: 2.4 cm; 8.4 wks 8. Ulna Length: 2.5 cm; 19.0 wks 9. Lateral ventricle: 0.7 cm 10. Cerebellum: 1.8 cm; 18.6 wks 11. Cisterna Magna: 0.51 cm 12. Nuchal Fold: 3.0 mm 13. Heart Rate: 146 beats per minute Rt ovary: normal Lt ovary: normal Cervical length 4.0 cm on T/A. GESTATIONAL AGE: 1. Established GA: 18.6 wks 2. GA from [facility]: 18.2 wks ESTIMATED DATE OF DELIVERY: 1. Established MALVIN: 10/11/2021 2. MALVIN from [facility]: 10/15/2021 ANATOMY: The visualized anatomy includes but not limited to: 1. Cranium: Normal 2. Intracranial anatomy: cavum septum pellucidi, lateral ventricles, choroid plexus, cerebellum, posterior fossa, third and fourth ventricles. 3. face: orbits, lip/palate, profile, nasal bone 4. Heart: four-chamber view of the heart, ventricular septum, foramen ovale, pulmonary vein, left and right outflow tracts, three-vessel view, 3 vessel trachea view, aortic and ductal arches, situs.. 5. Diaphragm: Normal 6. Abdominal wall: Normal 7. Cord Insertion: Normal 8. Spine: Cervical, thoracic, lumbar, sacral. 9. Stomach: Normal size and shape 10. Right Kidney: Normal 11. Left Kidney: Normal 12. 3 vessel cord: Normal 13. Upper extremity: Open hands, fifth digit. 14. Lower extremity: Tibia, fibula, bilateral feet. 15. Bladder: Normal 16. Genitalia: Male, patient aware US/US OB /maternal detail IMPRESSION: 1. Single, living, intrauterine with appropriate biometry. 2. Normal survey DISCUSSION: I reviewed today's ultrasound findings. We discussed the limitations of ultrasound in diagnosing aneuploidy and other congenital abnormalities. I reviewed the differences between screening test and diagnostic test. Amniocentesis was discussed and declined. She was informed that the baseline incidence of congenital abnormalities is approximately 3-5%. Not all these conditions are diagnosable in utero. RECOMMENDATIONS: 1. Follow-up when necessary. Thank you for allowing me to participate in her care. Total time 30 minutes. The time spent was devoted to counseling the patient about the disease and diagnosis, coordinating care including reviewing her records, pertinent lab data and studies, as well as discussing diagnostic evaluation and workup, plan therapeutic interventions and future disposition of care. This includes any additional research needed to obtain further information in formulating the plan of care of this patient. This note was generated with a voice recognition program. Please excuse any errors which may have been overlooked during my review of this note. Sometimes these errors may affect the content or meaning of a given sentence.
== END 2021-05-16 12:18 | disposition home or self-care (01) ==
LOC: HO.US 12:17
PROVIDERS: Visit Provider Obstetrics & Gynecology
DX: O09.299 Supervision of pregnancy with other poor reproductive or obstetric history, unspecified trimester (principal); Z3A.00 Weeks of gestation of pregnancy not specified
CPT/HCPCS: 76811

== ENCOUNTER → 2021-06-09 10:39 | Outpatient (BNVA) | payer MEDICAID, SELFPAY | PROVIDERS: Visit Provider Advanced Practice Midwife | DX: O99.342 Other mental disorders complicating pregnancy, second trimester (principal); F32.A Depression, unspecified; F41.9 Anxiety disorder, unspecified; O36.5920 Maternal care for other known or suspected poor fetal growth, second trimester, not applicable or unspecified; O98.312 Other infections with a predominantly sexual mode of transmission complicating pregnancy, second trimester; A63.0 Anogenital (venereal) warts; Z3A.21 21 weeks gestation of pregnancy | CPT/HCPCS: 81003; 99212 ==

== ENCOUNTER 2021-07-02 13:06 | Outpatient (REF) | payer MEDICAID, SELFPAY ==
[2021-07-02 15:17] LABS: Hematocrit 32.3 % (37.0-47.0); Hemoglobin 10.7 g/dl (12.0-16.0); Mean Corpuscular HGB Conc 33.1 g/dl (31.0-35.0); Mean Corpuscular Hemoglobin 29.8 pg (27.0-33.0); Mean Platelet Volume 10.2 fL (9.4-12.3); Platelet Count 192 X10*3/uL (160-400); Red Blood Count 3.59 X10*6/uL (4.20-5.50); Red Cell Distribution Width 12.6 % (11.0-16.0)
[2021-07-02 15:37] LABS: Glucose 1 Hour PP 50gm Dose 117 mg/dL (60-140)
[2021-07-02 16:05] LABS: Syphilis Screen Nonreactive (Nonreactive)
== END 2021-07-02 13:07 | disposition home or self-care (01) ==
LOC: HO.LAB 13:06
PROVIDERS: Visit Provider Advanced Practice Midwife
DX: Z34.92 Encounter for supervision of normal pregnancy, unspecified, second trimester (principal)
CPT/HCPCS: 36415; 85027; 86780

== ENCOUNTER → 2021-07-07 13:33 | Outpatient (BNVA) | payer MEDICAID, SELFPAY | PROVIDERS: Visit Provider Advanced Practice Midwife | DX: O09.292 Supervision of pregnancy with other poor reproductive or obstetric history, second trimester (principal); Z3A.25 25 weeks gestation of pregnancy; Z87.42 Personal history of other diseases of the female genital tract | CPT/HCPCS: 81003; 99212 ==

== ENCOUNTER 2021-07-11 10:59 | Outpatient (REF) | payer MEDICAID, SELFPAY ==
--- NOTE | ~2021-07-11 | US_ITS ---
EXAMINATION: OBSTETRICAL ULTRASOUND, Follow up HISTORY: 26-year-old at 26.6 weeks of gestation History of FGR Size date discrepancy COMPARISON: 05/16/2021 TECHNIQUE: Real time transabdominal imaging with color and M-mode Doppler. PRESENTATION: Breech PLACENTA LOCATION: Posterior without previa AMNIOTIC FLUID: D [employer] 4.5 cm MEASUREMENTS: 1. Biparietal Diameter: 6.5 cm; 26.1 wks 2. Head Circumference: 24.3 cm; 26.3 wks 3. Abdominal Circumference: 21.5 cm; 26.0 wks 4. Femur Length: 5.0 cm; 26.6 wks 5. Heart Rate: 158 beats per minute WEIGHT: EFW: 918 grams (2 lbs 0 oz) -- 19 %. GESTATIONAL AGE: 1. Established GA: 26.6 wks 2. GA from AUA: 26.3 wks ESTIMATED DATE OF DELIVERY: 1. Established MALVIN: 10/11/2021 2. MALVIN from AUA: 10/14/2021 US/US OB follow up IMPRESSION: 1. A single active fetus is in breech presentation 2. Size equals dates ( EFW 19%) 3. Normal amniotic fluid volume According to the patient, she delivered her first at 37 weeks by induction for FGR. The weight was 6 lbs. 1 oz. He is doing well. In this , her fundal height was smaller than expected. I reviewed today's findings as well as the limitations of ultrasound and estimating weights. Approximately 70-80% of fetuses whose EFW is at or below 10th percentile are constitutionally small but healthy fetuses who are growing to their full genetic potential. Approximately 20-30% may be experiencing of growth restriction due to placental insufficiency. I reassured her that, on today's examination, there is no suspicion for FGR. The amniotic fluid volume is within normal limits and the fetus is active. Given her history, follow-up has been scheduled in 4 weeks. Thank you very much for this referral. Total time 30 minutes. The time spent was devoted to counseling the patient about the disease and diagnosis, coordinating care including reviewing her records, pertinent lab data and studies, as well as discussing diagnostic evaluation and workup, plan therapeutic interventions and future disposition of care. This includes any additional research needed to obtain further information in formulating the plan of care of this patient. This note was generated with a voice recognition program. Please excuse any errors which may have been overlooked during my review of this note. Sometimes these errors may affect the content or meaning of a given sentence.
== END 2021-07-11 11:00 | disposition home or self-care (01) ==
LOC: HO.US 10:59
PROVIDERS: Visit Provider Advanced Practice Midwife
DX: O09.292 Supervision of pregnancy with other poor reproductive or obstetric history, second trimester (principal); Z3A.26 26 weeks gestation of pregnancy; Z87.42 Personal history of other diseases of the female genital tract
CPT/HCPCS: 76816

== ENCOUNTER 2021-07-29 13:57 | Outpatient (REF) | payer MEDICAID, SELFPAY ==
[2021-07-29 15:50] LABS: Hematocrit 34.3 % (37.0-47.0); Hemoglobin 11.3 g/dl (12.0-16.0); Mean Corpuscular HGB Conc 32.9 g/dl (31.0-35.0); Mean Corpuscular Hemoglobin 29.7 pg (27.0-33.0); Mean Corpuscular Volume 90.3 fL (80.0-98.0); Mean Platelet Volume 10.3 fL (9.4-12.3); Platelet Count 188 X10*3/uL (160-400); Red Cell Distribution Width 12.9 % (11.0-16.0); White Blood Count 5.5 X10*3/uL (4.8-10.8)
[2021-07-29 16:09] LABS: Glucose 1 Hour PP 50gm Dose 120 mg/dL (60-140)
[2021-07-30 08:18] LABS: Syphilis Screen Nonreactive (Nonreactive)
== END 2021-07-29 13:58 | disposition home or self-care (01) ==
LOC: HO.LAB 13:57
PROVIDERS: Visit Provider Advanced Practice Midwife
DX: O09.292 Supervision of pregnancy with other poor reproductive or obstetric history, second trimester (principal); Z87.42 Personal history of other diseases of the female genital tract
CPT/HCPCS: 36415; 85027; 86780

== ENCOUNTER → 2021-08-05 13:20 | Outpatient (BNVA) | payer MEDICAID, SELFPAY | PROVIDERS: Visit Provider Advanced Practice Midwife | DX: O26.893 Other specified pregnancy related conditions, third trimester (principal); K59.00 Constipation, unspecified; Z13.31 Encounter for screening for depression; Z3A.30 30 weeks gestation of pregnancy | CPT/HCPCS: 81003; 99212 ==

== ENCOUNTER 2021-08-08 12:40 | Outpatient (REF) | payer MEDICAID, SELFPAY ==
--- NOTE | ~2021-08-08 | US_ITS ---
EXAMINATION: OBSTETRICAL ULTRASOUND, Follow up HISTORY: 26-year-old at the 30.6 weeks of gestation History of IUGR Size date discrepancy COMPARISON: 07/11/2021 TECHNIQUE: Real time transabdominal imaging with color and M-mode Doppler. PRESENTATION: Breech PLACENTA LOCATION: Posterior without previa AMNIOTIC FLUID: SAUL 14.4 cm MEASUREMENTS: 1. Biparietal Diameter: 7.7 cm; 30.6 wks 2. Head Circumference: 28.4 cm; 31.1 wks 3. Abdominal Circumference: 27.4 cm; 31.4 wks 4. Femur Length: 5.7 cm; 29.6 wks 5. Heart Rate: 146 beats per minute WEIGHT: EFW: 1662 grams (3 lbs 11 oz) -- 39 %. BIOPHYSICAL PROFILE: Motion: 2 Tone: 2 Breathin Amniotic Fluid: 2 Total score: 8/8 GESTATIONAL AGE: 1. Established GA: 30.6 wks 2. GA from AUA: 30.6 wks ESTIMATED DATE OF DELIVERY: 1. Established MALVIN: 10/11/2021 2. MALVIN from AUA: 10/11/2021 US/US OB follow up IMPRESSION: 1. A single active fetus is in vertex presentation 2. Size equals dates 3. Reassuring BPP Compared to the exam on 07/11/2021, there has been an appropriate interval growth. Thank you very much for this referral. This note was generated with a voice recognition program. Please excuse any errors which may have been overlooked during my review of this note. Sometimes these errors may affect the content or meaning of a given sentence.
== END 2021-08-08 12:41 | disposition home or self-care (01) ==
LOC: HO.US 12:40
PROVIDERS: Visit Provider Advanced Practice Midwife
DX: O09.293 Supervision of pregnancy with other poor reproductive or obstetric history, third trimester (principal); Z3A.30 30 weeks gestation of pregnancy
CPT/HCPCS: 76816

== ENCOUNTER → 2021-08-26 13:38 | Outpatient (BNVA) | payer MEDICAID, SELFPAY | PROVIDERS: Visit Provider Advanced Practice Midwife | DX: Z34.83 Encounter for supervision of other normal pregnancy, third trimester (principal); Z3A.33 33 weeks gestation of pregnancy | CPT/HCPCS: 81003; 99212 ==

== ENCOUNTER 2021-09-19 11:41 | Outpatient (REF) | payer MEDICAID, SELFPAY ==
[2021-09-20 03:24] LABS: CT PCR NOT DETECTED (Not Detect.); NG PCR NOT DETECTED (Not Detect.)
== END 2021-09-19 11:42 | disposition home or self-care (01) ==
LOC: HO.LAB 11:41
PROVIDERS: Visit Provider Advanced Practice Midwife
DX: O09.293 Supervision of pregnancy with other poor reproductive or obstetric history, third trimester (principal); Z3A.36 36 weeks gestation of pregnancy
CPT/HCPCS: 87081; 87147; 87491; 87591; 99212

== ENCOUNTER 2021-09-26 12:14 | Outpatient (REF) | payer MEDICAID, SELFPAY ==
--- NOTE | ~2021-09-26 | US_ITS ---
EXAMINATION: OBSTETRICAL ULTRASOUND, Follow up HISTORY: 26-year-old at the 36.6 weeks of gestation History of IUGR Size date discrepancy COMPARISON: 08/08/2021 TECHNIQUE: Real time transabdominal imaging with color and M-mode Doppler. PRESENTATION: Vertex PLACENTA LOCATION: Posterior without previa AMNIOTIC FLUID: SAUL 18.0 cm MEASUREMENTS: 1. Biparietal Diameter: 8.8 cm; 35.3 wks 2. Head Circumference: 33.4 cm; 38.2 wks 3. Abdominal Circumference: 33.6 cm; 37.4 wks 4. Femur Length: 6.92 cm; 35.4 wks 5. Heart Rate: 144 beats per minute WEIGHT: EFW: 3019 grams (6 lbs 10 oz) -- 32 %. BIOPHYSICAL PROFILE: Motion: 2 Tone: 2 Breathin Amniotic Fluid: 2 Total score: 8/8 GESTATIONAL AGE: 1. Established GA: 37.0 wks 2. GA from AUA: 36.5 wks ESTIMATED DATE OF DELIVERY: 1. Established MALVIN: 10/11/2021 2. MALVIN from AUA: 10/19/2021 US/US OB follow up IMPRESSION: 1. A single active fetus is in vertex presentation 2. Size equals dates 3. Reassuring BPP and SAUL Thank you very much for this referral. This note was generated with a voice recognition program. Please excuse any errors which may have been overlooked during my review of this note. Sometimes these errors may affect the content or meaning of a given sentence.
== END 2021-09-26 12:15 | disposition home or self-care (01) ==
LOC: HO.US 12:14
PROVIDERS: Visit Provider Advanced Practice Midwife
DX: O09.299 Supervision of pregnancy with other poor reproductive or obstetric history, unspecified trimester (principal); O99.820 Streptococcus B carrier state complicating pregnancy; Z79.899 Other long term (current) drug therapy
CPT/HCPCS: 76816; 99212

== ENCOUNTER → 2021-10-03 09:47 | Outpatient (BNVA) | payer MEDICAID, SELFPAY | PROVIDERS: Visit Provider Advanced Practice Midwife | DX: Z34.83 Encounter for supervision of other normal pregnancy, third trimester (principal); Z3A.38 38 weeks gestation of pregnancy | CPT/HCPCS: 99212 ==

== ENCOUNTER → 2021-10-10 11:22 | Outpatient (BNVA) | payer MEDICAID, SELFPAY | PROVIDERS: Visit Provider Advanced Practice Midwife | DX: O99.820 Streptococcus B carrier state complicating pregnancy (principal); Z3A.39 39 weeks gestation of pregnancy | CPT/HCPCS: 81003; 99212 ==

== ENCOUNTER → 2021-10-15 09:52 | Outpatient (BNVA) | payer MEDICAID, SELFPAY | PROVIDERS: Visit Provider Advanced Practice Midwife | DX: O36.5930 Maternal care for other known or suspected poor fetal growth, third trimester, not applicable or unspecified (principal); O99.343 Other mental disorders complicating pregnancy, third trimester; F41.8 Other specified anxiety disorders; O99.820 Streptococcus B carrier state complicating pregnancy; O35.8XX0 Maternal care for other (suspected) fetal abnormality and damage, not applicable or unspecified; Z3A.40 40 weeks gestation of pregnancy | CPT/HCPCS: 81003; 99212 ==

== ENCOUNTER → 2021-10-17 09:04 | Outpatient (BNVA) | payer MEDICAID, SELFPAY | PROVIDERS: Visit Provider Advanced Practice Midwife | DX: O99.820 Streptococcus B carrier state complicating pregnancy (principal); Z3A.40 40 weeks gestation of pregnancy | CPT/HCPCS: 99212 ==

== ENCOUNTER 2021-11-07 16:30 | Emergency (ER) | payer MEDICAID, SELFPAY ==
[2021-11-07 16:42] VITALS: BP 132/75; PULSE 90; RESP 18; TEMP 36.7; O2SAT 98; BMI 26.2
--- NOTE | 2021-11-07 19:42 | ED_ITS ---
HPI - Allergic Reaction General Chief complaint: Allergic Reaction Stated complaint: allergic reaction Time Seen by Provider: 11/07/21 19:42 History of Present Illness HPI narrative: Patient developed lip swelling some redness of the lip a tingling around the lips and some mild swelling in her lower eyelids and was concerned she was having an allergic reaction and came to the ER, no trouble breathing no trouble swallowing No rash She is nursing a baby Related Data Previous Rx's Medication Instructions Recorded vitamin with calcium 1 tab PO DAILY #90 tabs 08/27/20 no.72-iron 27 mg-folic acid 1 mg tablet ( Vitamins Plus Low Iron) ferrous sulfate 324 mg (65 mg 324 mg PO BID #60 tabs 07/02/21 iron) tablet,delayed release docusate sodium 100 mg capsule 100 mg PO BID #60 caps 08/05/21 (Colace) loratadine 10 mg tablet (Claritin) 10 mg PO DAILY PRN allergic 11/07/21 symptoms #7 tabs Allergies Allergy/AdvReac Type Severity Reaction Status Date / Time No Known Allergies Allergy Verified 10/17/21 09:14 [No Known Allergies*] Review of Systems Review of Systems: Patient complains of an episode of lip swelling and some swelling under both eyes Negatives no fever no chills no dizziness no weakness no fainting no feeling faint no headache no neck pain no difficulty breathing or swallowing no throat swelling no shortness of breath no chest pain no nausea no vomiting no other skin rash Yes all other systems are reviewed and are negative [facility] Past Medical History Source: nursing notes reviewed Medical History Dysplasia of cervix, low grade (TC 1) Kidney stone Family History Family History Maternal Grandfather Alzheimer's dementia Parkinsons disease Brother Diabetes Social History Social History Household Members: Significant Other and Children Housing: Apartment Alcohol intake: never Patient Tobacco Use Status: Never used Tobacco Advance Directives: No Advance Directives Information Provided: No Current occupational status: employed 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 Gender identity: Female Physical Exam ED Vital Signs: Vital Signs - 24 hr 11/07/21 16:42 Temperature 98.1 F Pulse Rate 90 Respiratory Rate 18 Blood Pressure 132/75 Pulse Oximetry 98 Oxygen Delivery Method Room Air BMI result Body Mass Index 26.2 General appearance is no acute distress The eyes no redness or discharge, there is some mild lower lid edema The nose is not blocked, no sinus tenderness The pharynx is clear no redness swelling or exudate no swelling of lips tongue or uvula or any soft tissue in the pharynx, mucous membranes are moist, voice is normal, patient swallows easily Neck is supple The chest is clear to auscultation no wheezing with full symmetric equal breath sounds Heart no murmur Abdomen soft nontender Extremities full range of motion x4 Skin no rash Course Course Course Narrative: I checked that Claritin is safe for nursing mother and it is so we gave 1 dose of Claritin here and advised patient that if needed she could take Claritin again Discharge Plan Discharge Clinical Impression: Allergic reaction Patient Disposition: Home, Self-Care Additional Instructions: The symptoms of lip swelling and itching along with some eyelid swelling are likely an allergic reaction so we gave 1 dose of Claritin here If there are no symptoms he did not need to take any further medication but if needed Claritin is safe for you 0 and the baby while nursing so it is okay to take Claritin and continue nursing, but if you do not need any medication do not take Return any time any worse condition or any concerns Prescriptions: New loratadine [Claritin] 10 mg tablet 10 mg PO DAILY PRN (Reason: allergic symptoms) Qty: 7 0RF No Action ferrous sulfate 324 mg (65 mg iron) tablet,delayed release (DR/EC) 324 mg PO BID Qty: 60 5RF Vitamin Plus Low Iron 27 mg iron- 1 mg tablet 1 tab PO DAILY Qty: 90 3RF docusate sodium [Colace] 100 mg capsule 100 mg PO BID Qty: 60 1RF Interventions: ED Discharge Assessment Last Done: 11/07/21 19:53 Discharge Date/Time: 11/07/21 19:54
[2021-11-07] MEDS: Loratadine 10 MG TABLET PO (19:54)
== END 2021-11-07 19:54 | disposition home or self-care (01) ==
PROVIDERS: Emergency Provider Internal Medicine
DX: T78.40XA Allergy, unspecified, initial encounter (principal); L29.9 Pruritus, unspecified; X58.XXXA Exposure to other specified factors, initial encounter
CPT/HCPCS: 99282; 99283

== ENCOUNTER → 2022-01-26 09:58 | Outpatient (RCR) | payer OTHER, SELFPAY ==
[2020-02-19 07:48] LABS: COVID-19 Test Negative (Negative)
[2020-02-26 08:17] LABS: COVID-19 Test Negative (Negative)
[2020-03-09 08:58] LABS: COVID-19 Test Negative (Negative); IDNOW Serial# 55D5AD1C
[2020-03-28 10:06] LABS: SARS-COV-2 PCR UMBRL Not Detected
[2020-04-04 08:19] LABS: SARS-COV-2 PCR UMBRL Not Detected
[2020-04-17 09:47] LABS: SARS-COV-2 PCR UMBRL Not Detected
[2020-04-22 07:59] LABS: COVID-19 Test Negative (Negative); IDNOW Serial# 55D5AD1C
== END | disposition home or self-care (01) ==
LOC: HO.EMPCOV 02-19 07:26
PROVIDERS: Visit Provider Internal Medicine
DX: Z20.828 Contact with and (suspected) exposure to other viral communicable diseases (principal)
CPT/HCPCS: 36415; 87635; C9803; U0003

== ENCOUNTER 2022-12-11 10:46 | Outpatient (REF) | payer MEDICAID, SELFPAY ==
[2022-12-11 11:36] LABS: MANUAL DIFF FLAG NO
[2022-12-11 11:49] LABS: Basophils Percent Auto 0.7 % (0-2); Eosinophils Absolute Auto 0.1 X10*3/uL (0.0-0.4); Eosinophils Percent Auto 1.8 % (0-4); Hematocrit 37.3 % (37.0-47.0); Hemoglobin 12.1 g/dl (12.0-16.0); Lymphocytes Percent Auto 35.4 % (20-40); Mean Corpuscular HGB Conc 32.4 g/dl (31.0-35.0); Mean Corpuscular Hemoglobin 27.3 pg (27.0-33.0); Mean Corpuscular Volume 84.2 fL (80.0-98.0); Mean Platelet Volume 10.3 fL (9.4-12.3); Monocytes Absolute Auto 0.2 X10*3/uL (0.1-1.2); Monocytes Percent Auto 8.4 % (2-11); Neutrophils Absolute Auto 1.5 x10*3/uL (2.0-8.3); Neutrophils Percent Auto 53.7 % (45-73); Platelet Count 246 X10*3/uL (160-400); Red Blood Count 4.43 X10*6/uL (4.20-5.50); Red Cell Distribution Width 12.9 % (11.0-16.0); White Blood Count 2.7 X10*3/uL (4.8-10.8)
[2022-12-11 12:17] LABS: Anion Gap 12 (12-20); Blood Urea Nitrogen 11 mg/dL (9-16); Calcium 9.7 mg/dL (8.4-10.2); Carbon Dioxide 22 mmol/L (22-29); Chloride 109 mmol/L (96-108); Estimated Glomerular Filt Rate > 60; Glucose Random 80 mg/dL (60-115); Potassium 4.1 mmol/L (3.3-5.1); Sodium 139 mmol/L (135-145)
[2022-12-11 18:06] LABS: Appearance Urine Turbid; Color Urine RED; Glucose Urine UA 100 mg/dL (Negative); Leukocyte Esterase Urine Moderate (2+) (Negative); Nitrite Urine Positive (Negative); PH 6.5 (5.0-9.0); UMIC TRIGGER UACC YES; Urine Blood Large (3+) (Negative); Urine Ketones 15 mg/dL (Negative); Urine Protein 300 (3+) mg/dL (Neg-Trace)
[2022-12-11 18:53] LABS: Bacteria Urine 1+ (None Seen); Hyaline Casts Urine 0-2 /LPF (0-2); UACC Culture Trigger YES; WBC Urine 21-50 /HPF (0-5)
[2022-12-11 18:54] LABS: RBC Urine >20 /HPF (0-2)
== END 2022-12-11 10:47 | disposition home or self-care (01) ==
LOC: HO.HHCL 10:46
PROVIDERS: Visit Provider Internal Medicine Geriatric Medicine
DX: R31.0 Gross hematuria (principal); N23 Unspecified renal colic; N20.0 Calculus of kidney
CPT/HCPCS: 36415; 80048; 81001; 85025; 87086

== ENCOUNTER 2022-12-28 13:55 | Outpatient (REF) | payer MEDICAID, SELFPAY ==
--- NOTE | ~2022-12-28 | US_ITS ---
EXAMINATION: US RETROPERITONEAL LIMITED (RENAL ONLY) CLINICAL INFORMATION: Gross hematuria, renal calculus. COMPARISON: CT abdomen and pelvis with contrast 08/04/2020. X-ray abdomen KUB 08/16/2019. Ultrasound retroperitoneal limited (renal only) 06/14/2019 and 09/01/2017. X-ray abdomen KUB 01/16/2015. TECHNIQUE: Real-time imaging of the kidneys. FINDINGS: RIGHT KIDNEY: 11.5 x 4.4 x 5.8 cm (SAG x AP x TRV). There is a 1.1 x 1.2 x 1.1 cm right lower pole cyst with posterior mural calcification. There is no indication for follow up imaging. There is a 0.3 cm and a 0.2 cm right renal lower pole calculi. No hydronephrosis. Renal cortical thickness is normal. LEFT KIDNEY: 11.1 x 3.9 x 5.5 cm (SAG x AP x TRV). There is a 0.3 cm [id number] pole calculus. No hydronephrosis. Renal cortical thickness is normal. Limited visualization. US/US renal BI IMPRESSION: Bilateral renal calculi. No hydronephrosis.
== END 2022-12-28 13:56 | disposition home or self-care (01) ==
LOC: HO.US 13:55
PROVIDERS: Visit Provider Internal Medicine Geriatric Medicine
DX: N20.0 Calculus of kidney (principal); N23 Unspecified renal colic; R31.0 Gross hematuria
CPT/HCPCS: 76775

== ENCOUNTER 2023-01-29 11:09 | Outpatient (AMB) | payer MEDICAID, SELFPAY ==
--- NOTE | 2023-01-29 11:11 | A.OFFVIS_ITS ---
Intake Intake Visit Reasons: hematuria/renal colic/renal stones (US 12/28) Intake Note: New Patient presents for initial visit for hematuria/renal colic/renal stones Urology Medications: tamsulosin Blood Thinner: none Casket Trimmer Required: No Accompanied by: Self / Same As Patient Allergies No Known Allergies [No Known Allergies*] Allergy (Verified 01/31/23 20:33) Medication List - Last Reconciled 01/31/23 by NELLY Watt loratadine (Claritin) 10 mg PO DAILY PRN tamsulosin 0.4 mg PO DAILY HPI HPI Comments History of Present Illness Details Carlton is a very pleasant 27-year-old female patient of Dr. Griffith. She presents to the office today as a new patient for nephrolithiasis. Patient reports noting approximately 1 month ago episode of gross hematuria with right-sided flank pain. She reports having followed up with her PCP regarding this issue at which time a renal ultrasound was ordered for further assessment evaluation. These results reviewed with the patient today. Right kidney with a 1.1 x 1.2 x 1.1 cm right lower pole cyst with posterior mural calcification. There is no indication for follow up imaging per radiology report. There is a 0.3 cm and a 0.2 cm right renal lower pole calculi. No hydronephrosis. Left kidney with a 0.3 cm [id number] pole calculus. No hydronephrosis. Bilateral renal calculi. No hydronephrosis. In discussion with the patient today she reports flank pain has since subsided and feels she past renal calculi as she states I felt something come out when I was peeing. When asked she denies any previous history of nephrolithiasis and or surgical intervention. She reports having had a tubal ligation in the past. She otherwise denies any bothersome urinary issues at this time. She denies urinary urgency, urinary frequency, incontinence, nocturia, hematuria, dysuria, foul smelling urine, changes to urinary stream, flank pain, fever, and or chills. She is happy with her current voiding parameters. In office urinalysis results reviewed with the patient today 3+ microscopic hematuria. When asked she denies any previous smoking history or workplace chemical exposure. 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 Gender identity: Female Female Reproductive History Menstrual Age of Menarche: 16 Review of Systems Const All systems reviewed & are unremarkable except as noted in HPI and below Reports no additional complaints Eyes Reports no additional complaints ENT Reports no additional complaints Card Reports no additional complaints Resp Reports no additional complaints GI Reports no additional complaints Reports as per HPI Musc Reports no additional complaints Neuro Reports no additional complaints Psych Reports no additional complaints Endo Reports no additional complaints Avi/Lymph Reports no additional complaints Aller/Immun Reports no additional complaints Physical Exam Const General: cooperative, comfortable, no acute distress, well developed, alert and awake Orientation/consciousness: patient oriented x3 HEENT Head: Yes normal to inspection, Yes normocephalic and Yes atraumatic Ears: hearing grossly normal bilaterally Eyes General: appearance normal, both eyes and all related structures Neck Neck: Yes normal visual inspection and Yes trachea midline Chest Chest palpation & inspection: normal inspection of the chest Resp Effort & Inspection: normal respiratory effort and able to speak in complete sentences Cardio Rate: regular rate GI Inspection: Yes normal to inspection General: Yes no CVA tenderness Back/Spine/Pelvis Back: no CVA tenderness Skin General skin exam: no rashes or lesions noted Neuro General: patient oriented x3 Extrem General: Yes normal to inspection Psych Appearance: grossly normal and well kempt Mental Status: mental status grossly normal Speech and movement: Normal speech and movement present and Clear speech present Affect: normal affect Attitude: cooperative Thought process: Normal thought process present Thought content: Normal thought content present Insight: Good insight present (Psych) Judgement: Good judgement present (Psych) Results AMB Urinalysis, Automated UA Leukoctes 0 Shagufta/uL Last Edit by [employer] Sebastian on 01/29/23 11:27 UA Nitrite Negative Last Edit by [employer] on 01/29/23 11:27 UA Urobilinogen 0.2 mg/dL Last Edit by Marci Cortes on 01/29/23 11:27 UA Protein 15 mg/dL Last Edit by Marci Cortes on 01/29/23 11:27 UA pH 6.5 Last Edit by Marci Cortes on 01/29/23 11:27 UA Blood 200 Francis/uL Last Edit by Marci Cortes on 01/29/23 11:27 UA Specific Trinidad 1.015 Last Edit by Marci Cortes on 01/29/23 11:27 UA Ketone Negative Last Edit by Marci Cortes on 01/29/23 11:27 UA Bilirubin 0 mg/dL Last Edit by Marci Cortes on 01/29/23 11:27 UA Glucose 0 mg/dL Last Edit by Marci Cortes on 01/29/23 11:27 Results Reviewed Results Reviewed: Laboratory Last Values Urine pH (Auto) 6.5 01/29/23 11:17 Specific Trinidad (Auto) 1.015 01/29/23 11:17 Urine Protein (Auto) 15 mg/dL 01/29/23 11:17 Glucose (UA)(Auto) 0 mg/dL 01/29/23 11:17 Urine Ketones (Auto) Negative 01/29/23 11:17 Urine Blood (Auto) 200 Francis/uL 01/29/23 11:17 Urine Nitrite (Auto) Negative 01/29/23 11:17 Urine Bilirubin (Auto) 0 mg/dL 01/29/23 11:17 Urine Urobilinogen (Auto) 0.2 mg/dL 01/29/23 11:17 Leukocyte Esterase (Auto) 0 Shagufta/uL 01/29/23 11:17 Date of Service: 12/28/22 EXAMINATION: US RETROPERITONEAL LIMITED (RENAL ONLY) CLINICAL INFORMATION: Gross hematuria, renal calculus. COMPARISON: CT abdomen and pelvis with contrast 08/04/2020. X-ray abdomen KUB 08/16/2019. Ultrasound retroperitoneal limited (renal only) 06/14/2019 and 09/01/2017. X-ray abdomen KUB 01/16/2015. TECHNIQUE: Real-time imaging of the kidneys. FINDINGS: RIGHT KIDNEY: 11.5 x 4.4 x 5.8 cm (SAG x AP x TRV). There is a 1.1 x 1.2 x 1.1 cm right lower pole cyst with posterior mural calcification. There is no indication for follow up imaging. There is a 0.3 cm and a 0.2 cm right renal lower pole calculi. No hydronephrosis. Renal cortical thickness is normal. LEFT KIDNEY: 11.1 x 3.9 x 5.5 cm (SAG x AP x TRV). There is a 0.3 cm [id number]-[id number] pole calculus. No hydronephrosis. Renal cortical thickness is normal. Limited visualization. IMPRESSION: Bilateral renal calculi. No hydronephrosis. Assessment & Plan Assessment & Plan (1) Kidney stone: Code(s): N20.0 - Calculus of kidney (2) Gross hematuria: Code(s): R31.0 - Gross hematuria (3) Microscopic hematuria: Code(s): R31.29 - Other microscopic hematuria Plan In office urinalysis results reviewed with the patient today; as noted above. Discussed obtaining repeat renal ultrasound for further assessment evaluation. Discussed at length potential causes for gross hematuria Patient denies any previous smoking history and or workplace chemical exposure. Discussed, educated, encouraged on the importance of drinking plenty of water daily. Discussed adding 1 oz of lemon juice to water daily. Start vitamin B6 as discussed and prescribed. Follow-up in 4-6 weeks with imaging to be completed prior; or sooner with any issues, concerns, and or questions. Orders: Orders AMB Urinalysis Automated 01/29/23 Z13.9 - Encounter for screening, unspecified US renal BI Today N20.0 - Calculus of kidney Medications: New pyridoxine (vitamin B6) 100 mg PO DAILY 90 days 90 tabs 1RF Patient Instructions: The patient had an opportunity to ask questions regarding the treatment plan. All questions were answered. Physical exam, labs, and imaging were discussed and reviewed in detail. As well as risks, benefits, and discussion of treatment choices. No major barriers to understanding were identified. The patient expressed understanding and agreement with the above treatment plan. The patient was made aware they should contact our office by phone for worsening of their current condition, the appearance of new symptoms, or with any questions or concerns. Compliance is encouraged with any medications and follow up testing that is ordered. It is a privilege to be allowed the opportunity to participate in? your urological care.? Again, if you have any questions or concerns If you have any questions or concerns please do not hesitate to contact me. The office is [phone]. This note is constructed using voice recognition software. While every effort has been made to ensure accuracy paramedic errors may have been included. Yours sincerely, DIANELYS Watt-SAMY Coding Level of Care Code New Pt Level 4 (72338) Diagnoses Kidney stone N20.0 Gross hematuria R31.0 Microscopic hematuria R31.29
== END 2023-01-29 11:32 | disposition home or self-care (01) ==
PROVIDERS: Visit Provider Nurse Practitioner Family
DX: N20.0 Calculus of kidney (principal); R31.0 Gross hematuria; R31.29 Other microscopic hematuria
CPT/HCPCS: 99204

== ENCOUNTER → 2023-01-29 11:09 | Outpatient (BNVA) | payer MEDICAID, SELFPAY | PROVIDERS: Visit Provider Nurse Practitioner Family | DX: N20.0 Calculus of kidney (principal); R31.0 Gross hematuria; R31.29 Other microscopic hematuria | CPT/HCPCS: 81003; 99212 ==

== ENCOUNTER 2023-04-30 10:41 | Outpatient (REF) | payer MEDICAID, SELFPAY ==
[2023-05-01 06:08] LABS: CT PCR NOT DETECTED (Not Detect.); NG PCR NOT DETECTED (Not Detect.)
[2023-05-01 12:50] LABS: BV Int Neg Control Negative (Negative); BV Int Pos Control Positive (Positive)
[2023-05-08 10:48] LABS: HPV 16 RNA NOT DETECTED (NOT DETECTED); HPV mRNA E6/E7 rflx Detected (Not Detected)
== END 2023-04-30 10:42 | disposition home or self-care (01) ==
LOC: HO.LNP 10:41
PROVIDERS: Visit Provider Advanced Practice Midwife
DX: Z01.419 Encounter for gynecological examination (general) (routine) without abnormal findings (principal); R87.820 Cervical low risk human papillomavirus (HPV) DNA test positive; Z11.3 Encounter for screening for infections with a predominantly sexual mode of transmission; Z20.2 Contact with and (suspected) exposure to infections with a predominantly sexual mode of transmission; Z98.51 Tubal ligation status; Z97.5 Presence of (intrauterine) contraceptive device
CPT/HCPCS: 0353U; 87480; 87510; 87624; 87625; 87660; 88142; 99395

== ENCOUNTER 2023-04-30 10:41 | Outpatient (AMB) | payer MEDICAID, SELFPAY ==
--- OUTSIDE RECORDS SUMMARY | 2023-04-30 10:43 | XMS_ITS | Continuity of Care Document ---
Author Name Unknown Organization [facility] Address [address] [place] [address]- Care Team Providers Care Automobile Leasing Supervisor Name Role Phone Fernanda PARSONS, Rojas Iglesias Primary Care Physician [phone] Encounter [facility] Date(s): 05/21/22 - 06/20/22 [facility] [address] [address]- Attending Physician: Oziel Sellers Admitting Physician: AdmOziel colon Referring Physician: Admtr ArMarcos Allergies, Adverse Reactions, Alerts No Known Allergies Immunizations Given and Recorded Vaccine Date Status Refusal Reason Human Papillomavirus Vaccine 10/31/20 Recorded Human Papillomavirus Vaccine 08/27/20 Recorded Human Papillomavirus Vaccine 09/08/13 Recorded Human Papillomavirus Vaccine 12/30/12 Recorded Human Papillomavirus Vaccine 09/09/12 Recorded SARS-CoV-2 (COVID-19) mRNA-1273 vaccine 08/21/20 R ecorded SARS-CoV-2 (COVID-19) mRNA-1273 vaccine 07/24/20 R ecorded influenza virus vaccine, inactivated 02/18/20 Renzo rded Measles/Mumps/Rubella Virus Vaccine 10/23/13 Recor ded Measles/Mumps/Rubella Virus Vaccine 09/18/13 Recor ded hepatitis B adult vaccine 09/18/13 Recorded Meningococcal Conjugate Vaccine 09/08/13 Recorded tetanus/diphtheria/pertussis, acel(Tdap) 09/09/12 Recorded Medications ibuprofen 600 mg oral tablet 600 mg, 1, tablet, By Mouth, 4 times a day, PRN, # 40 tablet, Refills 1, Tot. Refills 1, Maintenance, Pain , Mild, 05/21/22 10:10:00 EST, Route to Pharmacy Electronically, [facility]/pharmacy #[id number], Partialfill upon patient request if the prescription is fo... Start Date: 05/21/22 Status: Ordered Tylenol 8 Hour Caplet = 1,300 mg, By Mouth, Every 8 hours, 0 Refills, Maintenance, 04/08/22 10:26:00 EST, Partial fill upon patient request if the prescription is for a schedule II opioid drug. Start Date: 04/08/22 Status: Ordered Patient Care team information Care Team Personnel Name: Fernanda PARSONS, Rojas Iglesias Position: [facility] Outreach Member Role: PCP Address: Address: [address] [place] [address]- Care Team Related Persons Name: VINNIE, MOTHER Address: home [address] [place] [address] Name: KARAN FELICIANO Address: home [address] [address] Name: MARTINE SPENCE Address: [id number] Address: home [address] [address] Name: ANYA ELY Address: [address] [address]
--- OUTSIDE RECORDS SUMMARY | 2023-04-30 10:43 | XMS_ITS | Continuity of Care Document ---
Author Name Unknown Organization [facility] Address [address] [place] [address]- Care Team Providers Care Solutions Executive Security Name Role Phone Rojas Michael MD Primary Care Physician Encounter [facility] Date(s): 03/30/22 - 04/29/22 [facility] [address] [address]- Allergies, Adverse Reactions, Alerts No Known Allergies [...] 09/08/13 Recorded tetanus/diphtheria/pertussis, acel(Tdap) 09/09/12 Recorded Medications Tylenol 8 Hour Caplet = 1,300 mg, By Mouth, Every 8 hours, 0 Refills, Maintenance, 04/08/22 10:26:00 EST, Partial fill upon patient request if the prescription is for a schedule II opioid drug. Start Date: 04/08/22 Status: Ordered Patient Care team information Care Team Personnel Name: Rojas Michael MD Position: S Outreach Member Role: PCP Address: Address: [address] [place] [address]- [place] Care Team Related Persons Name: VINNIE, MOTHER Address: home [address] [place] [address] Name: KARAN FELICIANO Address: home [address] [facility] [address] [place] [address] Name: MARTINE SPENCE Address: [address] Address: home [address] [facility] [address] [place] [address] [place] Name: ANYA ELY Address: home [address] [facility] [address] [place] [address]
--- OUTSIDE RECORDS SUMMARY | 2023-04-30 10:43 | XMS_ITS | Continuity of Care Document ---
Author Name Unknown Organization [facility] Address [address] [address]- Care Team Providers Care Field Seismologist Name Role Phone Rojas Michael MD Primary Care Physician Encounter [facility] ACCT R [id number] Date(s): 10/23/21 - 01/02/22 [facility] [address] [place] [address] Attending Physician: Not on Staff, Attending MD Referring Physician: Dylan Sultana CNM Allergies, Adverse Reactions, Alerts No Known Allergies Care Team Personnel Name: Rojas Michael MD Address: [address] [place], [place] [address]
--- OUTSIDE RECORDS SUMMARY | 2023-04-30 10:43 | XMS_ITS | Continuity of Care Document ---
Author Name Unknown Organization [facility] Address [address] [address]- Care Team Providers Care Mold Parter Name Role Phone Rojas Michael MD Primary Care Physician Encounter [facility] R [id number] Date(s): 12/12/21 - 01/11/22 [facility] [address] [place] [address] Attending Physician: Admtr, Ar8 Admitting Physician: Admtr, Ar8 Referring Physician: Admtr, Ar8 Allergies, Adverse Reactions, Alerts No Known Allergies Patient Care team information Personnel Name: Rojas Michael MD Address: Address: [address] [place] [address]
--- OUTSIDE RECORDS SUMMARY | 2023-04-30 10:43 | XMS_ITS | Continuity of Care Document ---
Author Name Unknown Organization [facility] Address [address] [place] [address]- Care Team Providers Care Airline Attendant Name Role Phone Rojas Michael MD Primary Care Physician Encounter [facility] Date(s): 01/12/22 - 04/29/[address] [address] Attending Physician: Not on Staff, Attending MD Allergies, Adverse Reactions, Alerts No Known Allergies [...] Team Personnel Name: Rojas Michael MD Position: [facility] Outreach Member Role: PCP Address: Address: [address] [place] [address]- [place] Care Team Related Persons Name: VINNIE MOTHER Address: home [address] [place] [address] Name: KARAN FELICIANO Address: home [address] [facility] [address] [place] [address] Name: MARTINE SPENCE Address: [address] Address: home [address] [facility] [address] [place] [address] Name: ANYA ELY Address: home [address] [facility] [address] [place] [address]
--- OUTSIDE RECORDS SUMMARY | 2023-04-30 10:43 | XMS_ITS | Continuity of Care Document ---
Author Name Unknown Organization [facility] Address [address] [place] [address]- Care Team Providers Care Measurer Machine Name Role Phone Fernanda PARSONS, Rojas Iglesias Primary Care Physician [place] [facility] Date(s): 05/20/22 - 06/19/[address] [address] Allergies, Adverse Reactions, Alerts No Known Allergies [...] 05/21/22 10:10:00 EST, Route to Pharmacy Electronically, [facility]/pharmacy #[id number], Partialfill upon patient request if the prescription [...] Personnel Name: Fernanda PARSONS, Rojas Iglesias Position: [facility] Outreach Member Role: PCP Address: Address: [address] [place] [address]- [place] Care Team Related Persons Name: MOTHER [place] Address: home [address] [place] [address] Name: KARAN FELICIANO Address: [address] [address] Name: MARTINE SPENCE Address: [address] Address: home [address] [address] Name: ANYA ELY Address: home [address] [address]
--- OUTSIDE RECORDS SUMMARY | 2023-04-30 10:43 | XMS_ITS | Continuity of Care Document ---
Author Name Unknown Organization [facility] ter Address [address] [place] [address]- Care Team Providers Care Wealth Management Consultant Name Role Phone Xavier Robins MD, Bobby [facility] Date(s): 03/26/22 - 03/26/[address] [address] Discharge Disposition: A-D/C Home Attending Physician: Gabrielle Horton MD Admitting Physician: Gabrielle Horton MD Referring Physician: Gabrielle Horton MD Allergies, Adverse Reactions, Alerts No Known [...] Recorded Medications ibuprofen 600 mg oral tablet See Instructions, PRN, 1 tablet taken By Mouth Every 6 hours not to exceed 3200 mg/day, # 60 tablet, Refills 0, Tot. Refills 0, Acute 03/31/22 15:45:00 EST, as needed for pain, 03/26/22 15:43:00 EST,Instructions Replace Required Details, Route to Ph... Start Date: 03/26/22 Stop Date: 03/31/22 Status: Ordered oxyCODONE 5 mg oral tablet 5 mg, 1, tablet, By Mouth, Every 6 hours, PRN, # 7 tablet, Refills 0, Tot. Refills 0, Acute 03/31/22 15:43:00 EST, as needed for pain, 03/26/22 15:43:00 EST, Route to Pharmacy Electronically, [facility]/pharmacy #[id number], Partial fill upon patient request if th... Start Date: 03/26/22 Stop Date: 03/31/22 Status: Ordered Tylenol 325 mg oral capsule See Instructions, PRN as needed for pain, 2 capsule (650 mg) taken By Mouth Every 4 hours not to exceed 4000 mg/day, # 60 capsule, 0 Refills, Acute 03/31/22 15:43:00 EST, 03/26/22 15:43:00 EST, Capsule, [facility]/pharmacy #[id number], Partial fill upon patient r... Start Date: 03/26/22 Stop Date: 03/31/22 Status: Ordered Procedures Procedure Date Related Diagnosis Body Site Status Salpingectomy, Laparoscopic Bilateral 03/26/22 Completed Vital Signs Most recent to oldest [Reference Range]: 1 2 3 Weight 58 kg (03/26/22 2:36 PM) Oxygen Saturation [94-100 %] 100 % (03/26/22 5:15 PM) 100 % (03/26/22 5:00 PM) 100 % (03/26/22 4:45 PM) Pulse Rate [55-90 bpm] 84 bpm (03/26/22 2:36 PM) Blood Pressure [90-138/55-84 mm Hg] 111/67mm Hg (03/26/22 5:15 PM) 105/70mm Hg (03/26/22 5:00 PM) 113/67mm Hg (03/26/22 4:45 PM) Respiratory Rate [16-30 br/min] 22 br/min (03/26/22 5:15 PM) 20 br/min (03/26/22 5:00 PM) 22 br/min (03/26/22 4:45 PM) Temperature [96.8-100.4 DegF] 97.7 DegF (03/26/22 4:00 PM) 97.6 DegF (03/26/22 2:36 PM) Mode of Delivery (Oxygen) Room air (03/26/22 5:30 PM) Room air (03/26/22 5:15 PM) Room air (03/26/22 5:00 PM) Blood pressure sites Arm, right (03/26/22 5:15 PM) Arm, right (03/26/22 5:00 PM) Arm, right (03/26/22 4:45 PM) Temperature Route Temporal (03/26/22 4:00 PM) Temporal (03/26/22 2:36 PM) Dry Weight 58 kg (03/26/22 2:36 PM) Weight Obtained Via Standing scale (03/26/22 2:36 PM) Dry Weight Obtained Via Standing scale (03/26/22 2:36 PM) Note * Lucille Awad RN: PERFORM Event Display: Discharge/Transfer Note Hospital Authored Date: [id number] Nursing Discharge Note Entered On: 03/26/2022 18:00 EST Performed On: 03/26/2022 17:42 EST by Lucille Awad RN Nursing Discharge Note 2 Discharge Time : 03/26/2022 17:50 EST Discharge Level of Care at Discharge : Home/Half-Way/Foster Care Patient Left Unit Via : Wheelchair Patient Accompanied Off Unit with : Significant other DC Instructions Provided & Signed by Pt : Yes Patient Understands D/C Instructions : Yes Patient Instructions Discharge Signed : Yes Did Pt have Specialty Bed or Wound Vac : No Lucille Awad RN - 03/26/2022 17:42 EST * Lucille Awad RN: PERFORM Event Display: Patient Education/Instruction Authored Date: [id number] Inpatient Adult Discharge Instructions [address] [id number] Name: JANEY FELICIANO : 1995 Visit: 03/26/2022 14:02:00 Current Date: 03/26/2022 16:08 Account: [id number] Inpatient Adult Discharge Instructions We would like to thank you for allowing us to assist you with your healthcare needs. The following includes patient education materials and information regarding your injury/illness. Our entire staffstrives to provide an excellent experience for our patients and their families. PLEASE ENSURE YOU FOLLOW-UP PER THE INSTRUCTIONS BELOW! ?? YOUR OPINION IS IMPORTANT TO US! Please complete the survey you may receive by mail or email. Your feedback will be used to make improvements to the healthcare experiences of our patients and their families. Surveys are administered by [employer] ?? If further treatment with your primary care physician or another doctor is recommended, it is important for you to keep the appointment. Call your primary care physician or return to the Emergency Department immediately if your condition worsens, fails to improve, or new symptoms develop. If you need to find a doctor, you can call [facility] [employer] for a referral at [phone] or toll free at [phone] [phone] or log in to [email or web address] ?? You can view and manage your care through the patient portal or by using a health care bereket of your choosing. [employer] is a website that allows you to securely view your medical information including your hospital discharge summary, office visit summaries, medications and follow-up visits. You can also request appointments, renew medications, and request access to your medical information using a health care bereket of your choosing, or just ask a question. You can enroll at [email or web address] or register during your next office visit. You have been discharged from [facility], Patient Care Unit: [facility]. If you have any questions regarding these instructions after you leave, please call us and we will be happy to assist you. [facility] Your Care Team Attending Physician Gabrielle Horton MD Discharging Providers Julissa Azevedo MD Reason for Admission UNDESIRED FERTILITY CS DS Tests Performed Below is a partial list of the tests performed during your hospitalization. You may have had other tests and procedures not included in this list. Please discuss all test results with your provider. Primary Care Provider Xavier Robins MD, Bobby Advance Directive Health Care Proxy on File Yes - Health Care Proxy No qualifying data available. Discharge Vitals Temperature: 97.7 DegF Weight: 58 kg Pulse Rate: 84 bpm ?? Respiratory Rate: 28 br/min ?? Systolic Blood Pressure: 114 mm Hg ?? Diastolic Blood Pressure: 65 mm Hg ?? Oxygen Saturation: 100 % ?? Studies Pending All tests and labs ordered during this hospital stay have been completed unless listed below. Please discuss all pending results with your provider listed above in these instructions. ?? No incomplete studies found What to do next Instructions From Your Doctor Discharge Orders Instructions from your Care Team See attached discharge instructions ?? Prescriptions ePrescribed Scheduled Follow-Up Appointments Wednesday 10:00 AM EST ?? Where: [facility] [address] [place] [address]- Wednesday 10:00 AM EST ?? Where: [facility] [address] [place] [address]- You Need to Schedule the Following Appointments Follow Up with??Gabrielle Horton When?? Where: [address] [place] [address] [address]- Business (1) Follow Up with??Bobby Robins When??In 0 days Where: [address] [place] [address]- Business (1) Discharge Medications VINNIE ZENAIDA FELICIANOJEREMY :1995 Visit Date:03/26/2022 Medications: Please continue your medications until treatment is completed or stopped by your provider. Medications not listed below should be discontinued. Discuss any questions related to medications with your provider. What How Much When Instructions Next Dose New Acetaminophen (Tylenol 325 mg oral capsule) See instructions 2 capsule (650 mg) taken By Mouth Every 4 hours not to exceed 4000 mg/ day ?? Pickup at [facility]/pharmacy #[id number] New Ibuprofen (ibuprofen 600 mg oral tablet) See instructions 1 tablet taken By Mouth Every 6 hours not to exceed 3200 mg/ day ?? Pickup at [facility]/pharmacy #[id number] New Oxycodone (oxyCODONE 5 mg oral tablet) 1 tab(s) Oral Every 6 hours as needed for as needed for pain Pickup at [facility]/pharmacy #[id number] [id number] [address], [place] [id number] [phone] Test Results Below is a partial list of the most recent Laboratory test results done prior to this discharge. You may have had other tests and procedures not included in this list. Please discuss all test resultswith your provider. Allergies (NKA means No Known Allergies) NKA Problems No qualifying data available Education Materials Below is the list of Educational Leaflet Providered with your Discharge Instructions. Surgery Medical Daystay Surgical Overnight Discharge Instructions?? Surgery Voiding Instructions?? Valuables and Belongings I fully understand and agree that [facility] accepts no responsibility for all my personal property including clothing, toilet articles, radios, jewelry, dentures, hearing aids, rings, money, or any other property that is in my possession or is brought to me after admission. I understand certain valuables may be placed in a hospital safe for a short period of time. I understand that the hospital is not liable for loss or damage due to accident, fire, or other natural occurrence while said property is in the safe. I accept full responsibility for any personal property that I keep with me, and will not hold the hospital responsible in case of loss or disappearance. I acknowledge that i have been encouraged to send valuables and belongings home. ?? Review of Valuable and Belonging List: With patient Date for Pt to Sign Valuables/Belongings: 03/26/22 14:36:00 ?? Valuables & Belongings ?? Clothes Electronic devices Jewelry Monetary Items Personal devices Miscellaneous Medications (Valuables) Valuables at Bedside Jacket, Pants, Shirt, Undergarments Cell phone ? Glasses ? Valuables Sent Home ? Valuables Sent to Security ? Other Discharge Information ? Pulmonary Rehab Status?? Pulmonary Rehab Discharge Status?? Respiratory Rate: 28 br/min ? Common Emergency Awareness Tips IS IT A STROKE? Act FAST and Check for these signs: FACE Does the face look uneven? ARM Does one arm drift down? SPEECH Does their speech sound strange? TIME Call at any sign of stroke ?? Heart Attack Signs Chest discomfort: Most heart attacks involve discomfort in the center of the chest and lasts more than a few minutes, or goes away and comes back. It can feel like uncomfortable pressure, squeezing, fullness or pain. Discomfort in upper body: Symptoms can include pain or discomfort in one or both arms, back, neck, jaw or stomach. Shortness of breath: With or without discomfort. Other signs: Breaking out in a cold sweat, nausea, or lightheaded. Remember, MINUTES DO MATTER. If you experience any of these heart attack warning signs, call to get immediate medical attention! ?? Smoking can increase your chances of developing chronic health problems and can cause harmful effects to other family members in your house. If you smoke, you are strongly encouraged to quit. Please call [facility] [employer] at [phone] or [phone] ([phone]) or log in to [email or web address] for referrals to smoking cessation programs. ?? The National Suicide Prevention Hotline is available 02/11 if you or someone you know needs to find a reason to keep living. By calling 4-135-735-Voicebase (5499) you'll be connected to a skilled, trained counselor at a crisis center in your area. INPATIENT DISCHARGE INSTRUCTIONS SIGNATURE PAGE JANEY BOOTH Location:[facility] Registration Date and Time:03/26/2022 14:02 [facility] Primary Care Physician: Xavier Robins MD, Bobby, I JANEY BOOTH, have received the above patient education materials/instructions and have verbalized understanding. If ambulance or transport services are being used I further acknowledge being given a choice of service. ?? If you need to contact me, please call me at this number: . Patient/Reliability Engineer Name: Patient/Reliability Engineer Signature: Relationship to Patient: Witness Name/Signature: Date: * Lucille Awad RN: PERFORM, SIGN, VERIFY Event Display: Patient Education Handout Authored Date: [id number] * Lucille Awad RN: PERFORM Event Display: Patient Education Leaflets Authored Date: [id number] Surgery Medical Daystay Surgical Overnight Discharge Instructions ?? 295 Medical Daystay/Surgical Overnight Discharge Instructions ? Since your coordination and judgment may be altered by medication and/or anesthesia, a responsible adult must drive you home from the hospital. ? If you have received medication for pain or sedation while under our care, you should not drive, operate machinery, drink alcohol, or sign any legal documents for 24 hours.?? You should have someone with you at home tonight. ? Remain at home the day of discharge.?? You may be up and about unless otherwise instructed by your physician. ? You may resume your daily prescription medication schedule.?? Any depressant medication should be avoided for 24 hours unless otherwise instructed by your surgeon or anesthesiologist. ? Call your physician for a follow-up appointment.? If you experience unusual or severe pain not relied by your pain medication, excessive bleedingor drainage, persistent nausea and vomiting, excessive swelling or redness, foul odor from incisionsite or fever over 100.6F, you need to call your physician. ? A follow-up phone call by a nurse will be made the day after your procedure.?? If you have stayed with us over night, you will not be receiving a follow-up phone call. ? Nausea and vomiting are a common side effect of prescription pain medication.?? We recommend that pills are not taken on an empty stomach.?? While taking any prescription pain medication you should not drive or drink alcohol. ? * Lucille Awad RN: PERFORM Event Display: Patient Education Leaflets Authored Date: [id number] Surgery Voiding Instructions ?? 305 Home Voiding Instructions ?? You should pass urine 6-8 hours after you are discharged from the [facility] Recovery Room. The amount should be about one cup of urine with each voiding. Be aware that you should feel like you are emptying your bladder completely. If you are passing very small amounts of urine frequently it could be over-flow and you may not be emptying your bladder. Things to try to encourage urination: Drink warm coffee or tea ??? unless your physician told you not to. Blow bubble through your straw into a small glass of water. Trickle lukewarm water onto your private area. Walk around as much as able. Let the faucet run slowly. Put your hand in warm water. Try to relax. If you have any concerns about urination, in the above time frame after your discharge, you should call your Doctor. ? Patient Care team information Care Team Personnel Name: Bobby Chavarria MD Position: S Outreach Member Role: PCP Address: Address: [address] [place] [address]- Care Team Related Persons Name: MOTHER BIRMINGHAM Address: home [address] [place] [address] Name: KARAN FELICIANO Address: home [address] [address] Name: MARTINE SPENCE Address: [address] Address: home [address] [address] Name: ANYA ELY Address: home [address] [address]
--- OUTSIDE RECORDS SUMMARY | 2023-04-30 10:43 | XMS_ITS | Continuity of Care Document ---
Author Name Unknown Organization [facility] Address [address] [address]- Care Team Providers Care Sql Data Architect Name Role Phone Rojas Michael MD Primary Care Physician Encounter [facility] Date(s): 10/23/21 - 12/12/[facility] [address] [address]- Attending Physician: Quiana Guadalupe CNM Admitting Physician: Quiana Guadalupe CNM Referring Physician: Dylan Sultana CNM Allergies, Adverse Reactions, Alerts No Known Allergies Care Team Personnel Name: Rojas Michael MD Address: [address] [place] [address]
--- OUTSIDE RECORDS SUMMARY | 2023-04-30 10:43 | XMS_ITS | Continuity of Care Document ---
Author Name Unknown Organization [facility] ter Address [address] [place] [address]- Care Team Providers Care Substation Inspector Name Role Phone Fernanda PARSONS, Rojas Iglesias Primary Care Physician [place] [facility] Date(s): 10/15/21 - 11/19/[address] [address] Attending Physician: Kevin Baker MD Referring Physician: Dylan Sultana CNM Allergies, Adverse Reactions, Alerts No Known Allergies Medications acetaminophen 325 mg oral tablet 650 mg, 2, tablet, By Mouth, 3 times a day, PRN, # 50 tablet, Refills 0, Tot. Refills 0, Maintenance, as needed for pain, 10/23/21 7:36:00 EDT, Route to Pharmacy Electronically, [facility]/pharmacy #[id number], Partial fill upon patient request if the prescription... Start Date: 10/23/21 Status: Ordered Colace sodium 100 mg oral capsule 100 mg, 1, capsule, By Mouth, 2 times a day, PRN, # 20 capsule, Refills 0, Tot. Refills 0, Maintenance, for constipation, 10/23/21 7:36:00 EDT, Route to Pharmacy Electronically, [id number], Partial fill upon patient request if the prescription... Start Date: 10/23/21 Status: Ordered Colace sodium 100 mg oral capsule 100 mg, 1, capsule, By Mouth, 2 times a day, PRN, # 20 capsule, Refills 0, Tot. Refills 0, Maintenance, for constipation, 10/23/21 8:21:00 EDT, Route to Pharmacy Electronically, [id number], Partial fill upon patient request if the prescription... Start Date: 10/23/21 Status: Ordered ibuprofen 600 mg oral tablet 600 mg, 1, tablet, By Mouth, Every 8 hours, # 50 tablet, Refills 0, Tot. Refills 0, Maintenance, 10/23/21 7:36:00 EDT, Route to Pharmacy Electronically, [facility]/pharmacy #[id number], Partial fill upon patient request if the prescription is for a schedule II opi... Start Date: 10/23/21 Status: Ordered oxyCODONE 5 mg oral tablet 10 mg, 2, tablet, By Mouth, Every 6 hours, PRN, # 12 tablet, Refills 0, Tot. Refills 0, Maintenance, for pain, 10/23/21 8:21:00 EDT, Route to Pharmacy Electronically, [facility]/pharmacy #[id number], Partial fillupon patient request if the prescription is for a s... Start Date: 10/23/21 Status: Ordered simethicone 125 mg oral tablet, chewable 1 tablet = 125 mg, Chew, 4 times a day, # 24 tablet, 0 Refills, Maintenance, 10/23/21 7:36:00 EDT, Chew Tablet, [facility]/pharmacy #[id number], Partial fill upon patient request if the prescription is for a schedule II opioid drug., 157.4, cm, 10/23/21 0:16:00 ED... Start Date: 10/23/21 Status: Ordered simethicone 125 mg oral tablet, chewable 1 tablet = 125 mg, Chew, 4 times a day, # 48 tablet, 0 Refills, Maintenance, 10/23/21 8:21:00 EDT, Chew Tablet, [facility]/pharmacy #[id number], Partial fill upon patient request if the prescription is for a schedule II opioid drug., 157.4, cm, 10/23/21 8:09:00 ED... Start Date: 10/23/21 Status: Ordered
--- OUTSIDE RECORDS SUMMARY | 2023-04-30 10:43 | XMS_ITS | Continuity of Care Document ---
Author Name Unknown Organization [facility] Address [address] [place] [address]- Care Team Providers Care Flight Attendant/Inflight Supervisor Name Role Phone Fernanda PARSONS, Rojas Iglesias Primary Care Physician Encounter [facility] Date(s): 04/08/22 - 05/08/22 [facility] [address] [address]- Attending Physician: Oziel Sellers Admitting Physician: AdmOziel colon Referring Physician: Admtr, ArMarcos Allergies, Adverse Reactions, Alerts No Known [...] Personnel Name: Fernanda PARSONS, Rojas Iglesias Position: [facility] Outreach Member Role: PCP Address: Address: [address] [place] [address]- [place] Care Team Related Persons Name: MOTHER BIRMINGHAM Address: home [address] [place] [address] Name: KARAN FELICIANO Address: home [address] [address] Name: MARTINE SPECNE Address: [address] Address: home [address] [place] [id number] Name: ANYA ELY Address: home [address] [address]
--- OUTSIDE RECORDS SUMMARY | 2023-04-30 10:43 | XMS_ITS | Continuity of Care Document ---
Author Name Unknown Organization [facility] ter Address [address] [place] [address]- Care Team Providers Care Administrative Intern Name Role Phone Fernanda PARSONS, Rojas Iglesias Primary Care Physician [phone] Encounter [facility] Date(s): 10/20/21 - 10/23/[address] [address] Discharge Disposition: A-D/C Home Attending Physician: Kevin Baker MD Admitting Physician: Kevin Baker MD Referring Physician: Kevin Baker MD Allergies, Adverse Reactions, Alerts No Known Allergies Medications acetaminophen 325 mg oral tablet 650 mg, 2, tablet, By Mouth, 3 times a day, PRN, # 50 tablet, Refills 0, Tot. Refills 0, Maintenance, as needed for pain, 10/23/21 7:36:00 EDT, Route to Pharmacy Electronically, [facility]/pharmacy #[id number], Partial fill upon patient request if [...] 10/23/21 7:36:00 EDT, Route to Pharmacy Electronically, [facility]/pharmacy #[id number], Partial fill upon patient request if the prescription is for a schedule II opi... Start Date: 10/23/21 Status: Ordered oxyCODONE 5 mg oral tablet 10 mg, 2, tablet, By Mouth, Every 6 hours, PRN, # 12 tablet, Refills 0, Tot. Refills 0, Maintenance, for pain, 10/23/21 8:21:00 EDT, Route to Pharmacy Electronically, [facility]/pharmacy #[id number], Partial fillupon patient request if the prescription is for a s... Start Date: 10/23/21 Status: Ordered simethicone 125 mg oral tablet, chewable 1 tablet = 125 mg, Chew, 4 times a day, # 24 tablet, 0 Refills, Maintenance, 10/23/21 7:36:00 EDT, Chew Tablet, [id number], Partial fill upon patient request if the prescription is for a schedule II opioid drug., 157.4, cm, 10/23/21 0:16:00 ED... Start Date: 10/23/21 Status: Ordered simethicone 125 mg oral tablet, chewable 1 tablet = 125 mg, Chew, 4 times a day, # 48 tablet, 0 Refills, Maintenance, 10/23/21 8:21:00 EDT, Chew Tablet, [facility]/pharmacy #[id number], Partial fill upon patient request if the prescription is for a schedule II opioid drug., 157.4, cm, 10/23/21 8:09:00 ED... Start Date: 10/23/21 Status: Ordered Problem List Condition Effective Dates Status Health Status Inform ant Obese class I(Confirmed) Active Procedures Procedure Date Related Diagnosis Body Site Status delivery only; 10/21/21 C ompleted Kidney stone Completed [place] tooth Completed Vital Signs Most recent to oldest [Reference Range]: 1 2 3 Height 157.4 cm (10/23/21 8:09 AM) 157.4 cm (10/23/21 12:16 AM) 157.4 cm (10/22/21 8:20 AM) Weight 75.4 kg (10/20/21 8:02 PM) 75.4 kg (10/20/21 12:41 PM) 75.6 kg (10/20/21 8:10 AM) Oxygen Saturation [94-100 %] 100 % (10/23/21 8:00 AM) 100 % (10/23/21 12:16 AM) 97 % (10/22/21 4:00 PM) Pulse Rate [55-90 bpm] 68 bpm (10/23/21 8:00 AM) 90 bpm (10/23/21 12:16 AM) 71 bpm (10/22/21 4:00 PM) Body Mass Index [18.5-24.99] 30.43 *>HHI* (10/20/21 12:41 PM) Blood Pressure [90-138/55-84 mm Hg] 114/52mm Hg (10/23/21 8:00 AM) 125/49mm Hg (10/23/21 12:16 AM) 96/45mm Hg (10/22/21 4:00 PM) Respiratory Rate [16-30 br/min] 18 br/min (10/23/21 8:00 AM) 20 br/min (10/23/21 12:16 AM) 18 br/min (10/22/21 4:00 PM) Temperature [96.8-100.4 DegF] 98.3 DegF (10/23/21 8:00 AM) 98.2 DegF (10/23/21 12:16 AM) 98.9 DegF (10/22/21 4:00 PM) Mode of Delivery (Oxygen) Room air (10/23/21 8:00 AM) Room air (10/23/21 12:16 AM) Room air (10/22/21 4:00 PM) Blood pressure sites Arm, left (10/23/21 8:00 AM) Arm, right (10/23/21 12:16 AM) Arm, left (10/22/21 4:00 PM) Temperature Route Oral (10/23/21 8:00 AM) Oral (10/23/21 12:16 AM) Oral (10/22/21 4:00 PM) Dry Weight 75.4 kg (10/20/21 12:41 PM) 75.6 kg (10/20/21 8:10 AM) Weight Obtained Via Patient/family state d (10/20/21 8:02 PM) Patient/family stated (10/20/21 12:41 PM) Standing scale (10/20/21 8:10 AM) Dry Weight Obtained Via Standing scale (10/20/21 8:10 AM)
[2023-04-30 10:45] VITALS: BP 100/62; BMI 20.3
--- NOTE | 2023-04-30 10:45 | MHC.OFFVIS ---
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 Required: Yes Public Relations Studies Director Language: Irish Information Interpreted: non-clinical & clinical Multiple Games Dealer: Multiple Games Dealer Present (Kelsey) Allergies No Known Allergies [No Known Allergies*] Allergy (Verified 04/30/23 10:50) Medication List - Last Reconciled 04/30/23 by Viviana Collins CNM celecoxib 200 mg PO BID epinephrine IM ibuprofen 600 mg PO QID PRN levonorgestrel (Mirena) intrauterine loratadine (Claritin) 10 mg PO DAILY PRN pyridoxine (vitamin B6) 100 mg PO DAILY 90 days Is last menstrual period known: No (no menses Mirena) Post menopausal: No HPI 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 She does have a history of an abnormal Pap smear. She delivered her last baby at [facility] and she was pushing for hours and hours and the baby was 0 P and she ended up with a for a 9-1/2 lb baby boy. Some months after that she had her tubes removed for sterilization. And she kept bleeding for 4 months straight so then they put in a Mirena to help deal with that bleeding. She did have an abnormal Pap smear during the in the plan was to repeat but it may have been done at [facility]. Currently she is healthy and she has no health concerns. 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 Gender identity: Female Female Reproductive History Menstrual Age of Menarche: 16 Duration of menses: 3-5 days control method: progestin IUCD Total pregnancies: 3 Full term: 2 Number of Living Children: 2 Ab induced: 1 Date of last pap smear: 08/28/20 (+HPV) History of abnormal pap smear: Yes (2019 2015 ASCUS, ) Physical Exam Vital Signs: Last Vital Signs BP 100/62 04/30/23 10:45 BMI result Body Mass Index 20.3 Const General: healthy appearing, comfortable, no acute distress, well developed and alert Nutritional Appearance: average body habitus Orientation/consciousness: patient oriented x3 Limitations: no limitations HEENT Head: Yes normocephalic Neck Neck: Yes normal visual inspection Chest Chest palpation & inspection: normal inspection of the chest Breast/axilla inspection: normal inspection of the breasts and normal inspection of the axillae Breast/axilla palpation: normal palpation of the breasts and normal palpation of the axillae Resp Effort & Inspection: normal respiratory effort GI Inspection: Yes normal to inspection, No Abdominal wall edema and No distended Palpation (GI): Soft to palpation and nontender Other: Cervix multiparous anterior uterus is retroverted both are small normal mobile nontender adnexa nontender fair tone with Kegel instructed on Kegels. Mirena string teased out of cervix with Cytobrush and visible about 0.5 cm long. General: Yes bladder normal to palpation External Female Exam: normal external appearance and normal appearance of the urethra Speculum Exam - Vagina: normal appearance of the vagina, normal palpation and normal vaginal discharge Speculum Exam - Cervix: normal appearance of the cervix, normal palpation and nontender Bimanual exam- vagina & uterus: normal bimanual exam, normal palpation, uterine size normal, bladder normal to palpation, consistency normal, normal palpation, uterine mobility normal, uterine shape normal, No Cervical tenderness present, non-tender and no cervical motion tenderness Bimanual Exam- Adnexa, other: normal adnexae, no masses, normal and No adnexal tenderness Neuro General: patient oriented x3 Results Reviewed Results Reviewed: Name: Carlton Trevizo Age/Sex: 25/F Attending: Viviana Collins CNM : 1995 Submitted by: Viviana Collins CNM Copies to: MR #: [id number] Status: DEP REF Collected: 08/27/20 Location: .LAB Received: 08/28/20 Interpretation General Category: Negative for intraepithelial lesion/malignancy. Adequacy: Endocervical component present. Interpretation: Mild inflammation with associated cellular changes. HPV mRNA E6/E7: DETECTED This assay detects E6/E7 viral messenger RNA (mRNA) from 14 high-risk HPV types (16, 18, 31, 33, 35, 39, 45, 51, 52, 56, 58, 59, 66, 68) HPV Type 16 RNA: Not Detected HPV Type 18/45 RNA: Not Detected HPV testing performed by [facility], [place], [place]. See reference laboratory portion of the EMR for entire report. Clinical Information LMP: 08/16/20 Previous PAP test: 04/2020, abnormal Other history: hx ascus x2, pos hpv, hx condyloma, TC 1 2019 Material Received ThinPrep Cervica Assessment & Plan Assessment & Plan (1) Cervical low risk human papillomavirus (HPV) DNA test positive: Comment: Negative Pap in 2020, with history of TC 1 in 2020 Code(s): R87.820 - Cervical low risk human papillomavirus (HPV) DNA test positive (2) Well woman exam with routine gynecological exam: Code(s): Z01.419 - Encounter for gynecological examination (general) (routine) without abnormal findings (3) Presence of 52 mg levonorgestrel-releasing intrauterine device (IUD): Comment: Patient states she was given this after 4 months of bleeding after her tubal removal which was done after her a year and half ago. Code(s): Z97.5 - Presence of (intrauterine) contraceptive device Plan -----Discussed in this visit the following: healthy balanced diet, regular and consistent exercise, getting recommended health screens, doing the best she can for her particular health concerns, kegel exercises, pap smear screening and followup recommendations, mammography screening and SBE, normal changes in cycles in her life stage--- . Pap smear was done as well as routine testing for STIs. Discussed her health in general and self-care and the normal position of her retroverted uterus. We will follow up with the Pap smear accordingly to the results and ASCcp Discussed that she can leave the Mirena in for update years if she so wishes if it is helpful to her alternatively she can remove it whenever she feels ready to open her self up to normal menses cycles. Orders: Orders Bacterial Vaginosis Panel Today Z20.2 - Contact with and (suspected) exposure to infections with a predominantly sexual mode of transmission CT NG by PCR Today Z20.2 - Contact with and (suspected) exposure to infections with a predominantly sexual mode of transmission Pap Smear Today Z87.42 - Personal history of other diseases of the female genital tract Coding Level of Care Code Est Pt Prev Care 18-39y(99301) Diagnoses Cervical low risk human papillomavirus (HPV) DNA test positive R87.820 Well woman exam with routine gynecological exam Z01.419 Presence of 52 mg levonorgestrel-releasing intrauterine device (IUD) Z97.5
== END 2023-04-30 11:28 | disposition home or self-care (01) ==
LOC: HO.HWSM 10:41
PROVIDERS: Visit Provider Advanced Practice Midwife
DX: R87.820 Cervical low risk human papillomavirus (HPV) DNA test positive (principal); Z01.419 Encounter for gynecological examination (general) (routine) without abnormal findings; Z97.5 Presence of (intrauterine) contraceptive device
CPT/HCPCS: 99395

== ENCOUNTER 2023-06-17 10:06 | Outpatient (AMB) | payer MEDICAID, SELFPAY ==
[2023-06-17 10:21] VITALS: BP 110/72; BMI 20.3
--- NOTE | 2023-06-17 10:21 | MHC.OFFVIS ---
Intake Vital Signs 06/17/23 10:21 Height 5 ft 2 in Weight 111 lb BMI 20.3 BP 110/72 Intake Visit Reasons: Colposcopy Senior Applications Developer: Senior Applications Developer Present Allergies No Known Allergies [No Known Allergies*] Allergy (Verified 06/17/23 10:26) HPI HPI Comments History of Present Illness Details Presenting for colposcopy regarding an abnormal Pap smear showing L LGSIL/HPV E6/E7 positive, HPV 16/18/45 negative PFSH Medical History (Updated 06/17/23 @ 10:35 by Ryan Jacobs MD) Dysplasia of cervix, low grade (TC 1) Kidney stone Surgical History (Updated 04/30/23 @ 11:29 by Viviana Collins CNM) Hx of tubal ligation Family History Maternal Grandfather Alzheimer's dementia Parkinsons disease Brother Diabetes Social History Household Members: Significant Other and Children Housing: Apartment Alcohol intake: never Patient Tobacco Use Status: Never used Tobacco Current occupational status: employed 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 Gender identity: Female Female Reproductive History Menstrual Age of Menarche: 16 Physical Exam Vital Signs: Last Vital Signs BP 110/72 06/17/23 10:21 BMI result Body Mass Index 20.3 Office Procedures Colposcopy Before the procedure was started discussed with the patient the procedure, alternatives & all the risks associated with the procedure (bleeding, infection, injury to vagina, bladder, vessels, possible need for transfusion with all its risks) then patient signed the consent Pap smear = LSIL Urine test done in the office was negative Speculum inserted, acetic acid used Colposcopy done Transformation zone seen, acetowhite lesions identified at 4+6+9+11+12+1 o?clock, cervical biopsies taken from 4+6+9+11+12+ o?clock, ECC done afterwards. Vaginoscopy of the upper vagina showed no evidence of any aceto-white lesions Monsel solution used for hemostasis. The patient tolerated well . At the end the patient was instructed to call if temp>100.4, abdominal pain, n/v, bleeding; The patient was given the following instructions: nothing per vagina, no intercourse or bath tub use. All questions answered the patient verbalized understanding. Instructed the patient to make an appointment in 2 weeks for follow-up This note was generated with a voice recognition program. Some errors may have been overlooked during the review of this note. Sometimes these errors may affect the content or meaning of a given sentence. [id number]-[id number] of cervix including upper vagina with biopsy and ECC Procedure code (CPT) selection complete Results AMB Test Urine AMB Test Urine Negative Last Edit by LUCIEN Moody on 06/17/23 10:31 Results Reviewed Results Reviewed: Laboratory Last Values Tst Clinic Negative 06/17/23 10:30 Assessment & Plan Assessment & Plan (1) LGSIL on Pap smear of cervix: Code(s): R87.612 - Low grade squamous intraepithelial lesion on cytologic smear of cervix (LGSIL) Plan: Discussed with the patient the result of her abnormal pap, its significance, risk of progression, persistence, and regression. the false positive/negative rate of a Pap smear as a screening test in detecting cervical cancer and the indication for a diagnostic test -colposcopy, biopsy, endocervical curettage. Colposcopy done, see procedure note. The patient verbalized understanding and agreed with the plan, all questions answered. Orders: Orders AMB HCG Urine Test Today Z32.02 - Encounter for test, result negative AMB Colposcopy Today R87.612 - Low grade squamous intraepithelial lesion on cytologic smear of cervix (LGSIL) Coding Level of Care Code Procedure Only Diagnoses LGSIL on Pap smear of cervix R87.612 CPT Codes Colposcopy - CPT: 30679-[id number] of cervix including upper vagina with biopsy and ECC ([id number])
== END 2023-06-17 10:49 | disposition home or self-care (01) ==
LOC: HO.HWS 10:08
PROVIDERS: Visit Provider Obstetrics & Gynecology
DX: R87.612 Low grade squamous intraepithelial lesion on cytologic smear of cervix (LGSIL) (principal); Z32.02 Encounter for pregnancy test, result negative
CPT/HCPCS: 57454

== ENCOUNTER 2023-06-17 10:06 | Outpatient (REF) | payer MEDICAID, SELFPAY | END 2023-06-17 10:07 | disposition home or self-care (01) | LOC: HO.LNP 10:06 | PROVIDERS: Visit Provider Obstetrics & Gynecology | DX: R87.612 Low grade squamous intraepithelial lesion on cytologic smear of cervix (LGSIL) (principal); Z32.02 Encounter for pregnancy test, result negative | CPT/HCPCS: 57454; 81025; 88305 ==

== ENCOUNTER 2023-07-18 19:00 | Emergency (ER) | payer MEDICAID, SELFPAY ==
[2023-07-18 19:25] VITALS: BP 110/47; PULSE 76; RESP 20; TEMP 37.2; O2SAT 98; BMI 21.9
[2023-07-18 19:50] LABS: MANUAL DIFF FLAG NO
[2023-07-18 19:51] LABS: Basophils Percent Auto 0.5 % (0-2); Eosinophils Absolute Auto 0.2 X10*3/uL (0.0-0.4); Hemoglobin 12.5 g/dl (12.0-16.0); Lymphocytes Absolute Auto 1.7 X10*3/uL (1.2-4.9); Lymphocytes Percent Auto 39.8 % (20-40); Mean Corpuscular HGB Conc 33.8 g/dl (31.0-35.0); Mean Corpuscular Hemoglobin 28.9 pg (27.0-33.0); Mean Corpuscular Volume 85.6 fL (80.0-98.0); Mean Platelet Volume 9.9 fL (9.4-12.3); Monocytes Absolute Auto 0.4 X10*3/uL (0.1-1.2); Monocytes Percent Auto 9.8 % (2-11); Neutrophils Percent Auto 45.9 % (45-73); Platelet Count 222 X10*3/uL (160-400); Red Blood Count 4.32 X10*6/uL (4.20-5.50); White Blood Count 4.3 X10*3/uL (4.8-10.8)
[2023-07-18 20:02] LABS: Anion Gap 9 (12-20); Blood Urea Nitrogen 10 mg/dL (9-16); Calcium 9.4 mg/dL (8.4-10.2); Carbon Dioxide 27 mmol/L (22-29); Chloride 106 mmol/L (96-108); Creatinine Clr Calc Pharmacy 97.9; Estimated Glomerular Filt Rate > 60; Glucose Random 83 mg/dL (60-115); Potassium 3.7 mmol/L (3.3-5.1); Sodium 138 mmol/L (135-145)
--- NOTE | 2023-07-18 20:54 | ED_ITS ---
HPI - Burn/Smoke Inhalation General Chief complaint: Burn/Smoke Inhalation Stated complaint: left arm burn/infected? Time Seen by Provider: 07/18/23 20:32 Source: patient Mode of arrival: ambulatory Limitations: no limitations History of Present Illness HPI Narrative: Patient comes to the emergency room complaining of a burn with a steamer to the left forearm. Patient states that 2 days ago, patient was working with a steamer and accidentally burned the dorsal aspect of the forearm. Patient denies fever or chills. Patient states that she came because the borders are starting to get a bit erythematous, no pus discharge, no fever chills. Related Data Home Medications ?Medication ?Instructions ?Recorded ?Confirmed celecoxib 200 mg capsule 200 mg PO BID 04/30/23 04/30/23 epinephrine 0.3 mg/0.3 mL IM 04/30/23 04/30/23 injection, auto-injector ibuprofen 600 mg tablet 600 mg PO QID PRN pain 04/30/23 04/30/23 levonorgestrel 21 mcg/24 hours (8 intrauterine 04/30/23 04/30/23 yrs) 52 mg intrauterine device (Mirena) Previous Rx's ?Medication ?Instructions ?Recorded loratadine 10 mg tablet (Claritin) 10 mg PO DAILY PRN allergic 11/07/21 symptoms #7 tabs pyridoxine (vitamin B6) 100 mg 100 mg PO DAILY 90 days #90 tabs 01/31/23 tablet bacitracin 500 unit/gram topical 1 appl topical QID #16 ea 07/18/23 packet Allergies Allergy/AdvReac Type Severity Reaction Status Date / Time No Known Allergies Allergy Verified 07/18/23 19:28 [No Known Allergies*] Review of Systems 2 Review of Systems: Constitutional : No Weight loss, No Fever, No Chills, No Night Sweats, No Fatigue, No Malaise ENT/Mouth : No Hearing loss, No Ear Pain, No Nasal Congestion, No Sinus Pain, No Hoarseness, No sore throat, No Rhinorrhea, No Swallowing Difficulty Eyes: No Eye Pain, No Swelling, No Redness, No Foreign Body, No Discharge, No Vision Changes Cardiovascular : No Chest Pain, No SOB, No Dyspnea on Exertion, No Orthopnea, No Edema, No Palpitations Respiratory : No Cough, No Sputum, No Wheezing, No Smoke Exposure, No Dyspnea Gastrointestinal : No Nausea, No Vomiting, No Diarrhea, No Constipation, No abdominal Pain, No Hematochezia, No Melena Genitourinary : no irregular bleeding, No Dysuria, No Urinary Frequency, No Hematuria, No Urinary Incontinence, No Urgency, No Flank Pain, No Urinary Flow Changes, No Hesitancy Musculoskeletal : No joint pain, No Myalgias, No Joint Swelling Skin : Burn to the left forearm Neuro : No Weakness, No Numbness, No Paresthesias, No Loss of Consciousness, No Dizziness, No Headache Psych : No Anxiety/Panic, No Depression, No SI/HI/AH/VH, No Social Issues, Heme/Lymph: No Bruising, No Bleeding,No Lymphadenopathy Endocrine : No Polyuria, No Polydipsia, No Temperature Intolerance [facility] Past Medical History Medical History Dysplasia of cervix, low grade (TC 1) Kidney stone Surgical History (Updated 04/30/23 @ 11:29 by Viviana Collins CNM) Hx of tubal ligation Family History Family History Maternal Grandfather Alzheimer's dementia Parkinsons disease Brother Diabetes Social History Social History Household Members: Significant Other and Children Housing: Apartment Alcohol intake: never Patient Tobacco Use Status: Never used Tobacco Advance Directives: No Advance Directives Information Provided: No Current occupational status: employed 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 Oriented X3. No acute distress. Eyes: Pupils equal, round and reactive to light. ENT: Pharynx normal. Neck: Normal inspection. Neck supple. No lymph nodes noted. No crepitus CVS: Normal heart rate and rhythm. Pulses normal. Normal S1 and S2 Respiratory: No respiratory distress. Breath sounds normal. No Wheezing. No rales Abdomen: Soft and nontender. No rigidity. No distention. Skin: Skin warm and dry. Normal skin color. Normal skin turgor. 10 cm x 2 cm burn to the left forearm dorsal aspect, erythematous, seems to be healing, very mildly erythematous border, no surrounding cellulitis, no pus discharge of serosanguineous fluid Extremities: No lower extremity edema. No Lacerations. No Rash Neuro: Oriented X 3. No motor deficit. No sensory deficit. Moving all extremities. No slurred speech. CN 2 through 12 grossly intact Psych: calm, cooperative, normal affect Medical Decision Making Medical Decision Making MDM Narrative: Patient received a Tdap booster, patient does not know when she got immunized last time. -my interpretation of labs, normal hematology and chemistry -no obvious signs of significant infection. Patient was given bacitracin ointment. Differential Diagnosis Differential Diagnoses: The differential diagnosis associated with the presentation includes (Thermal burn, chemical burn, cellulitis) Lab Data 07/18/23 19:43 07/18/23 19:43 Labs: Lab Results 07/18/23 Range/Units 19:43 WBC 4.3 L (4.8-10.8) X10*3/uL RBC 4.32 (4.20-5.50) X10*6/uL Hgb 12.5 (12.0-16.0) g/dl Hct 37.0 (37.0-47.0) % MCV 85.6 (80.0-98.0) fL MCH 28.9 (27.0-33.0) pg MCHC 33.8 (31.0-35.0) g/dl RDW 13.0 (11.0-16.0) % Plt Count 222 (160-400) X10*3/uL MPV 9.9 (9.4-12.3) fL Immature Gran % (Auto) 0.0 (0.0-0.4) % Neut % (Auto) 45.9 (45-73) % Lymph % (Auto) 39.8 (20-40) % [place] % (Auto) 9.8 (2-11) % Eos % (Auto) 4.0 (0-4) % Baso % (Auto) 0.5 (0-2) % Lymph # (Auto) 1.7 (1.2-4.9) X10*3/uL [place] # (Auto) 0.4 (0.1-1.2) X10*3/uL Eos # (Auto) 0.2 (0.0-0.4) X10*3/uL Baso # (Auto) 0.0 (0.0-0.2) X10*3/uL Abs Immat Gran (auto) 0.00 (0.00-0.03) X10*3/uL Absolute Neuts (auto) 2.0 (2.0-8.3) x10*3/uL Absolute Nucleated RBC 0.000 (0.0-0.012) X10*3/uL Nucleated RBC % (auto) 0.0 (0.0-0.2) /100WBC Sodium 138 (135-145) mmol/L Potassium 3.7 (3.3-5.1) mmol/L Chloride 106 (96-108) mmol/L Carbon Dioxide 27 (22-29) mmol/L Anion Gap 9 L (12-20) BUN 10 (9-16) mg/dL Creatinine 0.67 (0.5-1.4) mg/dL Estim Creat Clear Calc 97.9 Estimated GFR > 60 Random Glucose 83 (60-115) mg/dL Calcium 9.4 (8.4-10.2) mg/dL Discharge Plan Discharge Clinical Impression: Second degree burn of arm Patient Disposition: Home, Self-Care Instructions: Second Degree Burn (ED) Additional Instructions: Please follow-up with your primary care physician tomorrow. If you have any worsening or new symptoms, please return to the emergency room or call 911 Prescriptions: New bacitracin 500 unit/gram packet 1 appl topical QID Qty: 16 0RF No Action loratadine [Claritin] 10 mg tablet 10 mg PO DAILY PRN (Reason: allergic symptoms) Qty: 7 0RF pyridoxine (vitamin B6) 100 mg tablet 100 mg PO DAILY 90 Days Qty: 90 1RF celecoxib 200 mg capsule 200 mg PO BID Mirena 21 mcg/24 hours (8 yrs) 52 mg intrauterine device intrauterine epinephrine 0.3 mg/0.3 mL auto-injector IM ibuprofen 600 mg tablet 600 mg PO QID PRN (Reason: pain) Print Language: Kiswahili
[2023-07-18] MEDS: Diphth,Pertus(ACell),Tet Adult 0.5 ML SYRINGE IM (21:13)
[2023-07-18] MEDS: Bacitracin Oint 0.9 GM PACKET 1 APPL TOPICAL (21:14)
[2023-07-18 21:25] VITALS: BP 110/47; PULSE 76; RESP 20; TEMP 37.2; O2SAT 98
== END 2023-07-18 21:25 | disposition home or self-care (01) ==
PROVIDERS: Emergency Provider Emergency Medicine
DX: S40.812A Abrasion of left upper arm, initial encounter (principal); T22.20XA Burn of second degree of shoulder and upper limb, except wrist and hand, unspecified site, initial encounter; T31.0 Burns involving less than 10% of body surface; X13.1XXA Other contact with steam and other hot vapors, initial encounter; Y93.9 Activity, unspecified; Y92.9 Unspecified place or not applicable; Y99.8 Other external cause status; Z23 Encounter for immunization
CPT/HCPCS: 16025; 36415; 80048; 85025; 90471; 90715; 99282; 99284

== ENCOUNTER 2023-08-03 11:37 | Outpatient (AMB) | payer MEDICAID, SELFPAY ==
--- NOTE | 2023-08-03 11:40 | A.OFFVIS_ITS ---
Vital Signs 08/03/23 11:43 Height 5 ft 2 in Weight 119 lb 0.794 oz BMI 21.8 BP 118/70 Intake Visit Reasons: Colpo follow up Onsite Case Manager Required: No Information Interpreted: non-clinical & clinical Inspection And Testing Supervisor: Inspection And Testing Supervisor Present Accompanied by: Self / Same As Patient Allergies No Known Allergies [No Known Allergies*] Allergy (Verified 08/03/23 11:45) Is last menstrual period known: No (mirena) Post menopausal: No Patient : No Do you need a note to return to daycare/school/sports/work: Yes (for surgery on wednesday) HPI Comments Details: Presenting post colpo for follow-up. The patient is doing well with no complaints. The pathology showed the following: A. Endocervix, curettage: Endocervical glandular mucosa; negative for dysplasia B. Cervix, 1:00, biopsy: Squamous and endocervical glandular mucosa with inflammation and reactive changes; negative for dysplasia. C. Cervix, 4:00, biopsy: Squamous and endocervical glandular mucosa with inflammation and reactive changes; negative for dysplasia. D. Cervix, 6:00, biopsy: Squamous and endocervical glandular mucosa with inflammation and reactive changes; negative for dysplasia. E. Cervix, 9:00, biopsy: Squamous and endocervical glandular mucosa with inflammation and reactive changes; negative for dysplasia. F. Cervix, 11:00, biopsy: Low-grade squamous intraepithelial lesion (mild dysplasia, TC 1); endocervical glands present. G. Cervix, 12:00, biopsy: Low-grade squamous intraepithelial lesion (mild dysplasia, TC 1); endocervical glands present. 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 Gender identity: Female Female Reproductive History Menstrual Age of Menarche: 16 Date of last menstrual period: 02/08/20 Total pregnancies: 2 Full term: 2 Review of Systems Card Reports as per HPI and Reports no additional complaints Resp Reports as per HPI and Reports no additional complaints GI Reports as per HPI and Reports no additional complaints Reports as per HPI Physical Exam Const General: cooperative, healthy appearing and comfortable Resp Effort & Inspection: normal respiratory effort Auscultation: clear to auscultation bilaterally Percussion: percussion normal Cardio Palpation: normal PMI Rate: regular rate Rhythm: regular rhythm Heart sounds: no murmurs and no rubs Peripheral pulses: Peripheral pulses 2+ throughout GI Inspection: Yes normal to inspection Palpation (GI): Soft to palpation, nontender, no guarding, not rigid and No hepatosplenomegaly present Percussion: Yes normal to percussion Auscultation: normal bowel sounds Rectal Exam - Female: deferred Assessment & Plan Assessment & Plan (1) Dysplasia of cervix, low grade (TC 1): Comment: Persistent Since 2019 Code(s): N87.0 - Mild cervical dysplasia Category: Medical Plan: Discussed with the patient the pathology results of the colposcopy biopsies & endocervical curettage ( mild dysplasia-TC 1). Discussed with the patient the sensitivity specificity, positive and negative predictive value in detecting cervical cancer in addition discussed the regression, persistence and pr ogression rates. Since the TC 1 lesions are persistent since 2019, options of treatment were discussed with the patient included the following continued observation versus excisional procedures. All the pros, cons, risks and benefits of each approach were discussed with the patient, the patient decided to proceed with loop electric excision procedure. All questions answered the patient verbalized understanding. Coding Level of Care Code Est Pt Level 3 (63640) Diagnoses Dysplasia of cervix, low grade (TC 1) N87.0
[2023-08-03 11:43] VITALS: BP 118/70; BMI 21.8
== END 2023-08-03 11:57 | disposition home or self-care (01) ==
LOC: HO.HWS 11:38
PROVIDERS: Visit Provider Obstetrics & Gynecology
DX: N87.0 Mild cervical dysplasia (principal)
CPT/HCPCS: 99213

== ENCOUNTER → 2023-08-03 11:37 | Outpatient (BNVA) | payer MEDICAID, SELFPAY | PROVIDERS: Visit Provider Obstetrics & Gynecology | DX: N87.0 Mild cervical dysplasia (principal) | CPT/HCPCS: 99212 ==

== ENCOUNTER 2023-08-27 13:04 | Day surgery (SDC) | payer MEDICAID, SELFPAY ==
[2023-08-25 10:01] VITALS: BMI 21.8
--- NOTE | 2023-08-25 13:32 | HO.ANESPROP2 ---
HPI - Anesthesia Eval Consult details Narrative: 28yo F for LEEP,poss loop electric excision,poss loop electrical,cone and post endocervical curettage PMFSH Active Problems Active Problems: All Active Problems LGSIL on Pap smear of cervix (Acute) Presence of 52 mg levonorgestrel-releasing intrauterine device (IUD) (Acute) Well woman exam with routine gynecological exam (Acute) Microscopic hematuria (Acute) Gross hematuria (Acute) Group B streptococcal carriage complicating (Acute) Depression screen (Acute) Constipation (Acute) Encounter for supervision of normal in third trimester (Acute) History of IUGR (intrauterine growth retardation) and stillbirth, currently (Acute) Encounter for supervision of normal in second trimester (Acute) Cervical low risk human papillomavirus (HPV) DNA test positive (Acute) History of congenital anomaly (Acute) Cough (Acute) Early stage of (Acute) Hx of previous obstetrical problem (Acute) Hx of abnormal cervical Pap smear (Acute) Dysplasia of cervix, low grade (TC 1) (Acute) Hx of tubal ligation (Acute) Kidney stone (Acute) Past Medical History Medical History Dysplasia of cervix, low grade (TC 1) Kidney stone Family History Family History Maternal Grandfather Alzheimer's dementia Parkinsons disease Brother Diabetes Surgical History Surgical History (Updated 08/25/23 @ 09:57 by Demi Mccormack RN) Hx of lithotripsy Hx of tubal ligation Social History Social History (Updated 08/25/23 @ 10:00 by Demi Mccormack RN) Household Members: Significant Other and Children Housing: Apartment Alcohol intake: never Patient Tobacco Use Status: Never used Tobacco Patient : No (has IUD) FDLMP: has IUD Current occupational status: employed 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 Gender identity: Female Meds Allergies Allergy/AdvReac Type Severity Reaction Status Date / Time No Known Allergies Allergy Verified 08/03/23 11:45 [No Known Allergies*] Home Medications ?Medication ?Instructions ?Recorded ?Confirmed ?Last Taken ?Type celecoxib 200 mg capsule 200 mg PO BID 04/30/23 04/30/23 Unknown History epinephrine 0.3 mg/0.3 mL IM 04/30/23 04/30/23 Unknown History injection, auto-injector ibuprofen 600 mg tablet 600 mg PO QID PRN pain 04/30/23 08/25/23 Unknown History levonorgestrel 21 mcg/24 hours (8 intrauterine 04/30/23 04/30/23 Unknown History yrs) 52 mg intrauterine device (Mirena) Exam Height,Weight and Vital Signs: Height 5 ft 2 in Weight 54 kg Assessment and Plan Assessment Anesthesia Assessment: Chart Reviewed
[2023-08-27] VITALS (8 sets, daily range): BP systolic 93–113; BP diastolic 50–67; PULSE 70–84; RESP 11–16; TEMP 36.4–36.7; O2SAT 98–100; BMI 20.5
[2023-08-27 13:24] LABS: UPreg QC Valid YES; Urine Pregnancy NEGATIVE (NEGATIVE)
[2023-08-27] MEDS: Lactated Ringers 1,000 ML 100 ML IVCONT (13:29)
--- NOTE | 2023-08-27 14:37 | MHC.SHP ---
Pre-Procedural Eval Section A - 24 Hr Update-Section A only Date of Service: 08/27/23 The patient is an INPATIENT: No Changes since office visit: No Cold of Flu in the past 2 weeks, No New Medical Problems, No Changes in Medication and No Patient answered all questions The patient has been examined within 24 hours of the surgical procedure. The History & Physical has been completed within 30 days and I have reviewed it.: Yes Section B - Complete if H&P > 30 days Chief Complaint: Mild cervical dysplasia Allergies: Allergies Allergy/AdvReac Type Severity Reaction Status Date / Time No Known Allergies Allergy Verified 08/27/23 13:10 [No Known Allergies*] Plan Diagnosis/Plan: Unchanged I have reviewed the history and physical and performed a pertinent physical examination on my patient. No changes have occurred unless specified. Time Spent With Patient Time: Total time managing care of this patient today ____ minutes.
--- NOTE | 2023-08-27 15:08 | P.BOP_ITS ---
Brief Operative Note Date of Service: 08/27/23 Pre-op diagnosis: Persistent TC 1 Post-op diagnosis: same Procedure: LEEP with post LEEP ECC Surgeon: Ryan Jacobs MD Anesthesia: GLMA and other (Paracervical block) Was an Sorority Supervisor used for this Procedure?: No Estimated blood loss (mL): 0 Pathology: other (Anterior cervical lip, posterior cervical lip, right lateral cervical lip, post LEEP ECC) Condition: stable Disposition: other (Home)
--- NOTE | 2023-08-27 15:09 | W.PM.OPN ---
Operative Note Operative Note Date of Service: 08/27/23 Narrative: Pre op diagnosis: Persistent TC 1 Operation: Colposcopy, Loop electrical excision procedure, post LEEP ECC Postop diagnosis: the same Quantitative blood loss: 50 cc Surgeon: Ryan Jacobs MD, FACOG Child Day Care Provider: None Pathology: Anterior cervical lip, posterior cervical lip, right lateral cervical lip, post LEEP endo cervical curettage Complications: none Anesthesia: GLMA and Para cervical block Procedure: The patient was put in a dorsal lithotomy position, scrubbed and draped in the usual sterile fashion. A speculum was inserted inside the patient's vagina. The cervix is assessed using the colposcope with acetic acid , the lesions were seen, and at least 1 cm of the squamocolumnar junction was observed. 20 x 5 mm size loop was selected based upon the diameter of the lesion. Lugol solution was used to outline the lesions and area of the transformation zone order to be removed 10 cc of xylocaine with epinephrine were injected submucosally into the surface of the cervix (ectocervix) at the 3, 6, 9, and 12 o'clock positions. The electrosurgical generator is set at 40 torres on blend 1. The loop is carefully passed simultaneously around and under the transformation zone, in order to ensure excising it making sure the lesion is at least 5 mm far from the specimen margins . The loop was allowed to glide through the anterior cervical lip, followed by the posterior cervical lip, followed by a right lateral cervical lip. An endo cervical curettage is performed following completion of excision, and hemostasis is obtained with a Ball electrode or regular tip cautery. At the end, Monsel's solution was applied to the cone bed. The patient tolerated the procedure well and, all instruments were taken out of the patient vaginal cavity, and the patient was transferred to the PACU in stable condition.
== END 2023-08-27 17:18 | disposition home or self-care (01) ==
PROVIDERS: Visit Provider Obstetrics & Gynecology
PROC: 0UBC7ZZ Excision of Cervix, Via Natural or Artificial Opening (ICD-10-PCS; CPT 57522; principal; 2023-08-27 14:40)
DX: N87.0 Mild cervical dysplasia (principal); Z98.51 Tubal ligation status; Z87.442 Personal history of urinary calculi
CPT/HCPCS: 57461; 81025; 88305; 88307; J1885; J2405; J2704; J3010

== ENCOUNTER → 2023-08-27 13:04 | Outpatient (BNV) | payer MEDICAID, SELFPAY | PROVIDERS: Visit Provider Obstetrics & Gynecology | DX: N87.0 Mild cervical dysplasia (principal) | CPT/HCPCS: 57461 ==

== ENCOUNTER 2023-09-13 14:09 | Outpatient (AMB) | payer MEDICAID, SELFPAY ==
[2023-09-13 14:15] VITALS: BP 118/60; BMI 20.7
--- NOTE | 2023-09-13 14:15 | A.OFFVIS_ITS ---
Vital Signs 09/13/23 14:15 Height 5 ft 2 in Weight 113 lb 4 oz BMI 20.7 BP 118/60 Blood Pressure Location Lt brachial Position Sitting Intake Visit Reasons: post op Allergies No Known Allergies [No Known Allergies*] Allergy (Verified 09/13/23 14:18) HPI Comments Details: The patient is presenting for follow-up post LEEP cone with post cone ECC. The patient has no complaints. The pathology showed the following: A. Cervix, anterior lip, LEEP excision: - Low-grade squamous intraepithelial lesion (TC 1). - Background inflamed cervical transformation zone mucosa with reactive changes. B. Cervix, posterior lip, LEEP excision: - Mildly inflamed squamous mucosa with reactive changes. - Definitive endocervical epithelium not identified. C. Cervix, right lateral lip, LEEP excision: - Mildly inflamed squamous mucosa with reactive changes. - Definitive endocervical epithelium not identified. D. 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 Gender identity: Female Female Reproductive History Menstrual Age of Menarche: 16 Review of Systems Const All systems reviewed & are unremarkable except as noted in HPI and below Reports as per HPI and Reports no additional complaints GI Reports no additional complaints Reports no additional complaints Physical Exam Vital Signs: Last Vital Signs BP 118/60 09/13/23 14:15 BMI result Body Mass Index 20.7 Assessment & Plan Assessment & Plan (1) Dysplasia of cervix, low grade (TC 1): Comment: Persistent status post LEEP cone Code(s): N87.0 - Mild cervical dysplasia Category: Medical Plan: Discussed with the patient the results the pathology showing TC 1. Instructions given the patient to schedule a co testing appointment in 1 year. All questions answered the patient verbalized understanding Coding Level of Care Code Est Pt Level 3 (96776) Diagnoses Dysplasia of cervix, low grade (TC 1) N87.0
== END 2023-09-13 14:53 | disposition home or self-care (01) ==
LOC: HO.HWS 14:09
PROVIDERS: Referring Provider Internal Medicine Geriatric Medicine; Visit Provider Obstetrics & Gynecology
DX: N87.0 Mild cervical dysplasia (principal)
CPT/HCPCS: 99213

== ENCOUNTER → 2023-09-13 14:09 | Outpatient (BNVA) | payer MEDICAID, SELFPAY | PROVIDERS: Visit Provider Obstetrics & Gynecology | DX: Z09 Encounter for follow-up examination after completed treatment for conditions other than malignant neoplasm (principal); N87.0 Mild cervical dysplasia | CPT/HCPCS: 99212 ==

== ENCOUNTER 2024-02-04 09:28 | Outpatient (REF) | payer MEDICAID, SELFPAY | END 2024-02-04 09:29 | disposition home or self-care (01) | LOC: HO.US 09:28 | PROVIDERS: Visit Provider Nurse Practitioner Family | DX: N20.0 Calculus of kidney (principal) | CPT/HCPCS: 76775 ==

== ENCOUNTER 2024-03-23 09:21 | Outpatient (AMB) | payer MEDICAID, SELFPAY ==
--- NOTE | 2024-03-23 09:41 | MHC.OFFVIS ---
Intake Visit Reasons: ? kidney stones. ultrasound results(set) Intake Note: Patient presents today for follow up on hematuria, renal colic,renal stones, and ultrasound results Imaging completed: 02/04/24 Urology Medications: Vitamin B6 Blood Thinner: none Flooring Salesperson Required: No Accompanied by: Self / Same As Patient Allergies No Known Allergies [No Known Allergies*] Allergy (Verified 03/23/24 09:54) Medication List - Last Reconciled 03/23/24 by NELLY Watt celecoxib 200 mg PO BID epinephrine IM ibuprofen 600 mg PO QID PRN levonorgestrel (Mirena) intrauterine loratadine (Claritin) 10 mg PO DAILY PRN pyridoxine (vitamin B6) 100 mg PO DAILY 90 days HPI Comments Details: Carlton is a very pleasant 28-year-old female patient of Dr. Griffith. She is being followed up on today for her history of nephrolithiasis. In discussion with the patient today she reports to be doing and feeling well. She does report noting ongoing lower back pain. Recent renal imaging results reviewed with the patient today..... She discusses her longstanding history of nephrolithiasis and has had previous lithotripsies in the past. 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 On exam today no CVA tenderness noted bilaterally. She otherwise denies any bothersome urinary issues. She denies urinary urgency, urinary frequency, incontinence, nocturia, hematuria, dysuria, foul smelling urine, changes to urinary stream, flank pain, fever, and or chills. She is happy with her current voiding parameters. We discussed potential causes of nephrolithiasis as well as further workup to include 24 hour urine collection. She otherwise offers no other issues or concerns at this time. 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 Gender identity: Female Female Reproductive History Menstrual Age of Menarche: 16 Review of Systems Const All systems reviewed & are unremarkable except as noted in HPI and below Reports no additional complaints Eyes Reports no additional complaints ENT Reports no additional complaints Card Reports no additional complaints Resp Reports no additional complaints GI Reports no additional complaints Reports as per HPI Musc Reports no additional complaints Neuro Reports no additional complaints Psych Reports no additional complaints Endo Reports no additional complaints Avi/Lymph Reports no additional complaints Aller/Immun Reports no additional complaints Physical Exam Const General: cooperative, healthy appearing, comfortable, no acute distress, well developed, alert and awake Nutritional Appearance: thin Orientation/consciousness: patient oriented x3 Limitations: no limitations HEENT Head: Yes normal to inspection, Yes normocephalic and Yes atraumatic Ears: hearing grossly normal bilaterally Eyes General: appearance normal, both eyes and all related structures Neck Neck: Yes normal visual inspection and Yes trachea midline Chest Chest palpation & inspection: normal inspection of the chest Resp Effort & Inspection: normal respiratory effort and able to speak in complete sentences Cardio Rate: regular rate GI Inspection: Yes normal to inspection General: Yes no CVA tenderness Back/Spine/Pelvis Back: no CVA tenderness Skin General skin exam: no rashes or lesions noted Neuro General: patient oriented x3 Extrem General: Yes normal to inspection Psych Appearance: grossly normal and well kempt Mental Status: mental status grossly normal Speech and movement: Normal speech and movement present and Clear speech present Affect: normal affect Attitude: cooperative Thought process: Normal thought process present Thought content: Normal thought content present Insight: Fair insight present (Psych) Judgement: Fair judgement present (Psych) Results AMB Urinalysis, Automated UA Leukoctes 15 Shagufta/uL Last Edit by BelieversFundsamuel Cortes on 03/23/24 09:49 UA Nitrite Last Edit by BelieversFundsamuel Cortes on 03/23/24 09:49 UA Urobilinogen 0.2 mg/dL Last Edit by BelieversFundsamuel Cortes on 03/23/24 09:49 UA Protein 15 mg/dL Last Edit by RonakScilex Pharmaceuticalssamuel Cortes on 03/23/24 09:49 UA pH 6.5 Last Edit by RonakScilex Pharmaceuticalssamuel Cortes on 03/23/24 09:49 UA Blood 0 Rfancis/uL Last Edit by Ronakdmitriysamuel Birchsourav on 03/23/24 09:49 UA Specific [place] 1.015 Last Edit by Marci Birchsourav on 03/23/24 09:49 UA Ketone Last Edit by Ronakdmitriysamuel Birchsourav on 03/23/24 09:49 UA Bilirubin 0 mg/dL Last Edit by Marci Birchsourav on 03/23/24 09:49 UA Glucose 0 mg/dL Last Edit by Ronaksarahy Quetasourav on 03/23/24 09:49 Results Reviewed Results Reviewed: Laboratory Last Values Urine pH (Auto) 6.5 03/23/24 09:49 Specific [place] (Auto) 1.015 03/23/24 09:49 Urine Protein (Auto) 15 mg/dL 03/23/24 09:49 Glucose (UA)(Auto) 0 mg/dL 03/23/24 09:49 Urine Blood (Auto) 0 Francis/uL 03/23/24 09:49 Urine Bilirubin (Auto) 0 mg/dL 03/23/24 09:49 Urine Urobilinogen (Auto) 0.2 mg/dL 03/23/24 09:49 Leukocyte Esterase (Auto) 15 Shagufta/uL 03/23/24 09:49 Assessment & Plan Assessment & Plan (1) Kidney stone: Code(s): N20.0 - Calculus of kidney Category: Medical Plan In office urinalysis results reviewed with the patient today; as noted above. Recent renal imaging results reviewed with the patient today; as noted above. We discussed potential causes of nephrolithiasis as well as further workup to include 24 hour urine collection. Continue vitamin B6 as discussed and prescribed. We discussed at length importance of adequate hydration relation to nephrolithiasis as well as overall health and well-being. Discussed adding 1 oz of lemon juice to water daily. We discussed obtaining CT KUB and or KUB for further assessment evaluation; however will continue with surveillance monitoring at this time per patient request. Follow-up in 3 months with [facility] to be completed prior; or sooner with any issues, concerns, and or questions. Orders: Orders AMB Urinalysis Automated Today Z13.9 - Encounter for screening, unspecified URORISK Today N20.0 - Calculus of kidney Medications: Refilled pyridoxine (vitamin B6) 100 mg PO DAILY 90 tabs 1RF 90 days Patient Instructions: The patient had an opportunity to ask questions regarding the treatment plan. All questions were answered. Physical exam, labs, and imaging were discussed and reviewed in detail. As well as risks, benefits, and discussion of treatment choices. No major barriers to understanding were identified. The patient expressed understanding and agreement with the above treatment plan. The patient was made aware they should contact our office by phone for worsening of their current condition, the appearance of new symptoms, or with any questions or concerns. Compliance is encouraged with any medications and follow up testing that is ordered. It is a privilege to be allowed the opportunity to participate in? your urological care.? Again, if you have any questions or concerns If you have any questions or concerns please do not hesitate to contact me. The office is [phone]. This note is constructed using voice recognition software. While every effort has been made to ensure accuracy mechanical engineering coop errors may have been included. Yours sincerely, NELLY Watt Coding Level of Care Code Est Pt Level 3 (44648) Diagnoses Kidney stone N20.0
== END 2024-03-23 09:58 | disposition home or self-care (01) ==
LOC: HO.HUSH 09:21
PROVIDERS: PCP Internal Medicine Geriatric Medicine; Visit Provider Nurse Practitioner Family
DX: Z13.9 Encounter for screening, unspecified (principal)

== ENCOUNTER → 2024-03-23 09:21 | Outpatient (BNVA) | payer MEDICAID, SELFPAY | PROVIDERS: PCP Internal Medicine Geriatric Medicine; Visit Provider Nurse Practitioner Family | DX: N28.1 Cyst of kidney, acquired (principal); N20.0 Calculus of kidney | CPT/HCPCS: 81003; 99212 ==

== ENCOUNTER 2024-09-06 10:57 | Outpatient (AMB) | payer MEDICAID, SELFPAY ==
--- NOTE | 2024-09-06 11:04 | MHC.OFFVIS ---
Intake Visit Reasons: 3 months/ 24 urine(set) Intake Note: Patient presents today for a 3 month follow up/24hr urine Urology Medications:none Blood Thinner: none Antibiotic Allergy:none Act English Tutor Required: No Accompanied by: Self / Same As Patient Allergies No Known Allergies [No Known Allergies*] Allergy (Verified 09/06/24 11:51) Medication List - Last Reconciled 09/06/24 by NELLY Watt epinephrine IM ibuprofen 600 mg PO QID PRN HPI Comments Details: Carlton is a very pleasant 1-year-old female patient of Dr. Griffith. She presents to the office today for follow-up of her nephrolithiasis. In discussion with the patient today she reports to be doing and feeling well. She reports compliance with vitamin B6 as prescribed. Recent 24 hour urine collection results were reviewed with the patient today. We discussed extremely low urine volume of 0.6 L, high urine pH, as well as high calcium oxalate stone risk. In office urinalysis results reviewed with the patient today. She currently denies any bothersome urinary issues. She denies urinary urgency, urinary frequency, incontinence, nocturia, hematuria, dysuria, foul smelling urine, changes to urinary stream, flank pain, fever, and or chills. She is happy with her current voiding parameters. She discusses having started drinking ensure drinks as she has been attempting to gain weight. We discussed the importance of adequate hydration relation to nephrolithiasis as well as overall health and well-being. We discussed repeat 24 hour urine collection as well as imaging prior to follow-up appointment. Previous imaging 02/02 renal ultrasound noted bilateral kidneys are normal in size, contour, and echogenicity. Right kidney with multiple echogenic foci in the right kidney largest in the lower pole measuring 5 mm. 1.3 right-sided simple cysts. Left kidney with a single 3 mm echogenic focus in the mid to lower part of the left kidney. No hydronephrosis noted bilaterally. She discusses her longstanding history of nephrolithiasis and has had previous lithotripsies in the past. 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 She is happy with her current voiding parameters. She otherwise offers no other issues or concerns at this time. 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 Gender identity: Female Female Reproductive History Menstrual Age of Menarche: 16 Review of Systems Const All systems reviewed & are unremarkable except as noted in HPI and below Physical Exam Const General: cooperative, healthy appearing, comfortable, no acute distress, well developed, alert and awake Nutritional Appearance: thin Orientation/consciousness: patient oriented x3 Limitations: no limitations HEENT Head: Yes normal to inspection, Yes normocephalic and Yes atraumatic Ears: hearing grossly normal bilaterally Eyes General: appearance normal, both eyes and all related structures Neck Neck: Yes normal visual inspection and Yes trachea midline Chest Chest palpation & inspection: normal inspection of the chest Resp Effort & Inspection: normal respiratory effort and able to speak in complete sentences Cardio Rate: regular rate GI Inspection: Yes normal to inspection General: Yes no CVA tenderness Back/Spine/Pelvis Back: no CVA tenderness Skin General skin exam: no rashes or lesions noted Neuro General: patient oriented x3 Extrem General: Yes normal to inspection Psych Appearance: grossly normal and well kempt Mental Status: mental status grossly normal Speech and movement: Normal speech and movement present and Clear speech present Affect: normal affect Attitude: cooperative Thought process: Normal thought process present Thought content: Normal thought content present Insight: Fair insight present (Psych) Judgement: Fair judgement present (Psych) Results AMB Urinalysis, Automated UA Leukoctes 0 Shagufta/uL Last Edit by Nolvia Lucia on 09/06/24 11:39 UA Nitrite Negative Last Edit by Nolvia Lucia on 09/06/24 11:39 UA Urobilinogen 17 mg/dL Last Edit by Nolvia Lucia on 09/06/24 11:39 UA Protein 1 mg/dL Last Edit by Nolvia Lucia on 09/06/24 11:39 UA pH 6.5 Last Edit by Nolvia Lucia on 09/06/24 11:39 UA Blood 25 Farncis/uL Last Edit by Nolvia Lucia on 09/06/24 11:39 UA Specific [place]in 1.015 Last Edit by Nolvia Lucia on 09/06/24 11:39 UA Ketone Negative Last Edit by Nolvia Lucia on 09/06/24 11:39 UA Bilirubin 0 mg/dL Last Edit by Nolvia Lucia on 09/06/24 11:39 UA Glucose 0 mg/dL Last Edit by Nolvia Lucia on 09/06/24 11:39 Results Reviewed Results Reviewed: Laboratory Last Values Urine pH (Auto) 6.5 09/06/24 10:10 Specific [place] (Auto) 1.015 09/06/24 10:10 Urine Protein (Auto) 1 mg/dL 09/06/24 10:10 Glucose (UA)(Auto) 0 mg/dL 09/06/24 10:10 Urine Ketones (Auto) Negative 09/06/24 10:10 Urine Blood (Auto) 25 Francis/uL 09/06/24 10:10 Urine Nitrite (Auto) Negative 09/06/24 10:10 Urine Bilirubin (Auto) 0 mg/dL 09/06/24 10:10 Urine Urobilinogen (Auto) 17 mg/dL 09/06/24 10:10 Leukocyte Esterase (Auto) 0 Shagufta/uL 09/06/24 10:10 Assessment & Plan Assessment & Plan (1) Microscopic hematuria: Code(s): R31.29 - Other microscopic hematuria Category: Medical (2) Kidney stone: Code(s): N20.0 - Calculus of kidney Category: Medical Plan In office urinalysis results reviewed with the patient today; as noted above; will send for urine cytology. We discussed your risk collection results at length We discussed significant decrease in urine volume of 0.6 L in the importance of increasing urine volume between 2.0-2.5L to assist with nephrolithiasis. She currently denies any bothersome urinary issues or concerns. She reports be happy with current voiding parameters. Six as discussed and prescribed Continue adding 1 oz of lemon juice to water daily. Will repeat 24 hour urine collection as well as obtain renal ultrasound prior to follow-up appointment. Follow-up in 3 months with imaging and [facility]; or sooner with any issues, concerns, and or questions. Orders: Orders URORISK Today N20.0 - Calculus of kidney AMB Urinalysis Automated Today Z13.9 - Encounter for screening, unspecified US renal BI Today N20.0 - Calculus of kidney Urine Cytology Today R31.29 - Other microscopic hematuria Patient Instructions: The patient had an opportunity to ask questions regarding the treatment plan. All questions were answered. Physical exam, labs, and imaging were discussed and reviewed in detail. As well as risks, benefits, and discussion of treatment choices. No major barriers to understanding were identified. The patient expressed understanding and agreement with the above treatment plan. The patient was made aware they should contact our office by phone for worsening of their current condition, the appearance of new symptoms, or with any questions or concerns. Compliance is encouraged with any medications and follow up testing that is ordered. It is a privilege to be allowed the opportunity to participate in? your urological care.? Again, if you have any questions or concerns If you have any questions or concerns please do not hesitate to contact me. The office is [phone]. This note is constructed using voice recognition software. While every effort has been made to ensure accuracy member service representative errors may have been included. Yours sincerely, NELLY Watt Coding Level of Care Code Est Pt Level 3 (39696) Diagnoses Microscopic hematuria R31.29 Kidney stone N20.0
--- OUTSIDE RECORDS SUMMARY | 2024-09-06 12:01 | XMS_ITS | Clinical Summary ---
Author Organization [employer] Address [address] [facility] [address] [place] [address] Care Team Providers Care Vet Assistant Name Role Phone NaniEneida stone DIANELYS Primary Care Provider [phone] Allergies No known active allergies Medications acetaminophen (Tylenol) 325 MG tablet Take 650 mg by mouth every 4 (four) hours if needed. 03/26/2022 Active docusate sodium (Colace) 100 MG capsule Take 100 mg by mouth 2 times daily. 10/23/2021 Active tamsulosin (Flomax) 0.4 MG 24 hr capsuleIndicati ons:Gross hematuria,Renal colic on right side,Renal stones Take 1 capsule (0.4 mg) by mouth in the morning. 30 capsule 12/11/2022 Active Active Problems Problem Noted Date Diagnosed Date Tubal ligation status 12/11/2022 Panic disorder 05/28/2022 Routine health maintenance 05/28/2022 Overview (05/28/2022): -Pap: History of ASCUS x 2 w/ +HPV. Cervical biopsy 08/11/19 that showed TC 1. Continue to follow with [facility] -Optometry: UTD at outside clinic -Dental: establish with dental home -COVID-19: primary series complete, encouraged to get booster -Outstanding vaccines: flu in fall (hx of immunity to Hep B) TC I (cervical intraepithelial neoplasia I) Overview (05/28/2022): -History of ASCUS x 2 w/ +HPV -Cervical biopsy 08/11/19 that showed TC 1 ([facility] Dr. Jacobs) -Continue to follow with [facility] for history of abnormal pap smear Hand eczema 11/01/2017 Resolved Problems Problem Noted Date Diagnosed Date Resolved Date Atypical squamous cells of u ndetermined significance on cytologic smear of cervix (ASC-US) 05/28/2022 05/28/2022 Encounters Date Type Department Care Team Description 08/24/2024 Results Follow-Up [facility] [address] [place] [address] Jackeline Whitehead CNM BI US Breast Limited Right 08/09/2024 Telephone [facility] [address] [place], [place] [phone] Rylie Yeboah mammo tracking 07/03/2024 9:15 AM EDT Office Visit [facility] [address] [place] [address] Jackeline Whitehead CNM Mass of lower inner quadrant of right breast (Primary Dx); Family history of breast cancer in female 07/03/2024 Travel 06/28/2024 Telephone [facility] [address] [place] [address] Eneida Cantu FNP Nurse Triage 06/23/2024 Population Health Risk Score [facility] () Department [address] [place] [phone] Provider, Population Health Generic from Last 3 Months Immunizations Immunization Administration Dates Next Due HPV 9-Valent 10/31/2020,08/27/2020 HPV, Quadrivalent 10/31/2020,,09/08/2013,12/30,09/09/2012 Hep B, adult 09/18/2013 Influenza injectable quadriv alent preservative free 02/18/2020 Influenza, IIV3, injectable 02/18/2020 Influenza, Split (incl. iisdro fied surface antigen) 12/30/2012 MMR 10/23/2013,09/18/2013 Meningococcal ACWY, unspecified 09/08/2013 Meningococcal MCV4P ACYW-135 09/08/2013 Moderna Covid-19 Vaccine 6+ Bivalent 05/07/2022 Tdap 09/09/2012 Family History Medical History Relation Name Comments Breast cancer Maternal Great-Grandmother Breast cancer Mother's Sister Relation Name Status Comments Maternal Great-Grandmother Mother's Sister Social History Tobacco Use Types Packs/Day Years Used Date Smoking Tobacco: Never Smokeless Tobacco: Never Tobacco Cessation:Counseling Given: Not Answered Alcohol Use Standard Drinks/Week Comments Never 0 (1 standard drink = 0.6 oz pur e alcohol) Comments No Intention Date Recorded No desire to become (finding) 0 07/03/2024 Sex and Gender Information Value Date Recorded Sex Assigned at Female 02/09/2022 10:22 AM EDT Legal Sex Female 10:22 AM EDT Gender Identity Choose not to disclose 10:22 AM EDT Sexual Orientation Choose not to disclose 2021 10:22 AM EDT Last Filed Vital Signs Vital Sign Reading Time Taken Comments Blood Pressure 112/65 07/03/2024 9:33 AM EDT Pulse 75 07/03/2024 9:33 AM EDT Temperature 36.5 ??C (97.7 ??F) 07/03/2024 9:33 AM ED T Respiratory Rate 16 07/03/2024 9:33 AM EDT Oxygen Saturation 98% 07/03/2024 9:33 AM EDT Inhaled Oxygen Concentration - - Weight 54.6 kg (120 lb 6.4 oz) 07/03/2024 9:33 A M EDT Height 157.5 cm (5' 2 ) 07/03/2024 9:33 AM EDT Body Mass Index 22.02 07/03/2024 9:33 AM EDT Plan of Treatment Health Maintenance Due Date Last Done Comments Depression Screening 1995 SDOH Screening 1995 Disability Screening 1995 Alcohol/Substance Use Screening 2006 Hepatitis B Vaccines (2 of 3 - 19+ 3-dose series) 10/16/2013 09/18/2013 COVID-19 Vaccine ( season) 2023 05/07/2022, 08/21/2020, 07/24/2020 Influenza Vaccine (#1) 2023 , 02/18/2020, 12/30/2012 Cervical Cancer Screening 08/29/2024 HPV/Cotest 08/29/2024 04/30/2023, 08/10, 08/27/2020 Pap Smear 08/29/2024 04/30/2023, 08/27/2020 Diagnostic Breast Imaging 09/06/2024 08/07/2024, Mammogram 02/06/2025 08/07/2024, 08/07/2024 Family Planning (PISQ) 07/03/2025 07/03/2024 Tobacco Screening 07/03/2025 07/03/2024 DTaP/Tdap/Td Vaccines (3 - Td or Tdap) 07/17/2033 07/18/2023, 09/09/2012 Zoster Vaccines (1 of 2) 2044 RSV Patients and Patients Aged 60 years or older (1 - 1-dose 75+ series) 2069 Meningococcal Vaccine Aged Out 09/08/2013, 014 No longer eligible based on patient's age to complete this topic HPV Vaccines Completed 10/31/2020, 10/11, 08/27/2020, Additional history exists HIV Screening Completed 03/17/2021 Hepatitis C Screening Completed 03/17/2021 HIB Vaccines Aged Out No longer eligi ble based on patient's age to complete this topic Hepatitis A Vaccines Aged Out No long er eligible based on patient's age to complete this topic IPV Vaccines Aged Out No longer eligi ble based on patient's age to complete this topic Meningococcal B Vaccine Aged Out No l onger eligible based on patient's age to complete this topic Pneumococcal Vaccine: Pediatrics (0 to 5 Years) and At-Risk Patients (6 to 49) Years) Aged Out No longer eligible based on patient's age to complete this topic RSV under 20 months Aged Out No longe r eligible based on patient's age to complete this topic Rotavirus Vaccines Aged Out No longer eligible based on patient's age to complete this topic Procedures Procedure Name Priority Date/Time Associated Diagnosis Comments BI MAMMOGRAM DIAGNOSTIC TOMOSYNTHESIS BILATERAL STAT 08/07/2024 Mass of lower inner quadrant of right breast BI US BREAST LIMITED RIGHT STAT 08/07/2024 Mass of lower inner quadrant of right breast HPV MRNA E6/E7 REFLEX TO HPV 16, 18/45 Routine 04/30/2023 11:23 AM EST PAP SMEAR Routine 04/30/2023 11:23 AM EST ZZZ HISTORICAL HEPATITIS B SURFACE ANTIGEN* Routine 03/17/2021 3:40 PM EST from Last 3 Months or Most Recently Relevant to Health Maintenance Results * BI US Breast Limited Right (08/07/2024) Anatomical Region Laterality Modality Breast Right Ultrasound [facility] US PROCEDURES Final R esult * BI Mammogram Diagnostic Tomosynthesis Bilateral (08/07/2024) Anatomical Region Laterality Modality Breast Bilateral Mammography [facility] BI PROCEDURES Final R esult * (ABNORMAL) HPV mRNA E6/E7 w/Reflex to HPV Genotypes 16, 18/45 (04/30/2023 11:23 AM EST) HPV nRNA E6/E7 Detected(A ) Not Detected [facility] Comment:Methodology: Transcr iption-Mediated AmplificationThis assay detects E6/E7 viral messenger RNA (mRNA) from 14high-risk HPV types (16,18,31,33,35,39,45,51,52,56,58,59,66,68).Cervical sources are required for HPV testing.If a vaginal source from a patient who has had atotal hysterectomy with removal of cervix wassubmitted, please contact the testing laboratoryfor alternative testing options.For additional information, please refer [email or web address].Olapic/faq/FZD282e0(This link if provided for information/educational purposes only.)THIS TEST WAS PERFORMED AT:[facility] [place] [id number] ELMORE MD HPV 16 RNA NOT DETECTED NOT DETECTED [facility] HPV 18/45 RNA NOT DETECTED NOT DETECTED [facility] Comment:Methodology: Transcr iption Mediated AmplificationCervical sources are required for HPV testing.If a vaginal source from a patient who has had atotal hysterectomy with removal of cervix wassubmitted, please contact the testing laboratoryfor alternative testing options.THIS TEST WAS PERFORMED AT:[facility] [place] [phone] ELMORE MD 04/30/2023 11:2 3 AM EST 05/04/2023 9:30 AM EST us Generic External Data Provider LAB CYTOLOGY ORDE BRIDGETT Final Result Performing Organization Address City/State/[facility] Co de Phone Number [facility] [address] [place] [phone] * Pap Smear (04/30/2023 11:23 AM EST) 04/30/2023 11:2 3 AM EST 05/04/2023 9:30 AM EST Narrative [facility] - 05/12/2023 1:47 PM EST ----- ------- Name: Carlton Trevizo ?Age/Sex: 28/F ? : 1995 Unit#: [id number] ?? Attend Dr: Viviana Collins CNM ?Re04/30/23 ?Status: DEP REF ? Location: HO.LNP ?Disch: ? ----- ------- SPEC : [id number] ? RECD: 05/04/23 ? STATUS: ??SOUT ? REQ NUM: [id number] ? ADITI: 04/30/23 ? SUBM DR: Viviana Collins CNM ? ENTERED: ??05/04/23 ?SP TYPE: Pap Smr ?OTHR : ? ORDERED: ??Pap Smear, PAP path review ? Interpretation ?? General Category: ? Epithelial cell abnormality. ?? Adequacy: ? Endocervical component present. ?? Interpretation: ? Low grade squamous intraepithelial lesion (TC I). ? HPV mRNA E6/E7: ?DETECTED ? This assay detects E6/E7 viral messenger RNA (mRNA) from 14 high-risk HPV types (16, 18, ?? 31, 33, 35, 39, 45, 51, 52, 56, 58, 59, 66, 68) ? HPV Type 16 RNA: ?Not Detected ?? HPV Type 18/45 RNA: ? Not Detected ? HPV testing performed by [facility], [place], [place]. ??See reference laboratory ?? portion of the EMR for entire report. ? This case was reviewed intradepartmentally. ?Clinical Information LMP: No Dylan ortiz Previous PAP test: 08/28/20, HPV+ ? Material Received ?? ThinPrep-Cervical ----- ------- Signed (signature on file) Kevin Rinaldi MD 05/12/23 [id number] ? ----- ------- ? END OF REPORT ? us Generic External Data Provider LAB CYTOLOGY YVETTE URIAS Final Result [facility] [address] [place] [phone] * HEPATITIS B SURFACE ANTIGEN* (03/17/2021 3:40 PM EST) Hepatitis B Surface Antigen Negative Negative [facility] Hepatitis C Antibody Nonreactive Nonreactive [facility] Comment: Antibodies to HCV not detected; does not exclude early acute HCV infection. HIV AB/AG Nonreactive Nonreactive [facility] Comment: HIV-1 p24 Ag and/or HIV-1/HIV-2 Ab not detected. ?? A test result that is nonreactive does not exclude the possibility of exposure to or infection with HIV-1 and/or HIV-2. Nonreactive results in this assay for individuals with prior exposure to HIV-1 and/or HIV-2 may be due to antigen and antibody levels that are below the limit of detection of this assay. ?? The Mccartney Sub Master HIV Ag/Ab Combo assay result and supplemental assay results should be interpreted in conjunction with the patient's clinical presentation, history and other laboratory results. ??If the results are inconsistent with clinical evidence, additional testing is suggested to confirm the result. 03/17/2021 3:40 PM EST us Yadira Jose HISTORICAL/NON ORDERABLE LABS Fi nal Result [facility] [address] from Last 3 Months or Most Recently Relevant to Health Maintenance Insurance [facility] C3 Care Teams Vet Assistant Relationship Specialty Start Date End Date Eneida Cantu FNP [address] [place] [phone] PCP - General Family Medicine 09/23/21
== END 2024-09-06 11:42 | disposition home or self-care (01) ==
LOC: HO.HUSH 10:58
PROVIDERS: PCP Internal Medicine Geriatric Medicine; Visit Provider Nurse Practitioner Family
DX: R31.29 Other microscopic hematuria (principal); N20.0 Calculus of kidney; Z13.9 Encounter for screening, unspecified
CPT/HCPCS: 99213

== ENCOUNTER 2024-09-06 10:57 | Outpatient (REF) | payer MEDICAID, SELFPAY ==
[2024-09-06 16:50] LABS: Urine Cytology See Pathology rpt
== END 2024-09-06 10:58 | disposition home or self-care (01) ==
LOC: HO.LAB 10:57
PROVIDERS: PCP Internal Medicine Geriatric Medicine; Visit Provider Nurse Practitioner Family
DX: R31.29 Other microscopic hematuria (principal); N20.0 Calculus of kidney
CPT/HCPCS: 81003; 88112; 99212

== ENCOUNTER 2025-01-10 13:59 | Outpatient (AMB) | payer MEDICAID, SELFPAY ==
--- NOTE | 2025-01-10 14:05 | A.OFFVIS_ITS ---
Vital Signs 01/10/25 14:10 Height 5 ft 2 in Weight 119 lb BMI 21.8 BP 100/60 Intake Visit Reasons: Annual/cotesting Metal Box Maker Required: No Information Interpreted: non-clinical & clinical Social Media Director: Social Media Director Present (Beverly MCGRAW) Accompanied by: Self / Same As Patient Allergies No Known Allergies (No Known Allergies*) Allergy (Verified 01/10/25 14:10) Is last menstrual period known: Yes Last menstrual period: 01/08/25 HPI Comments Details: Presenting for annual exam. No complaints. 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 Gender identity: Female Female Reproductive History Menstrual Age of Menarche: 16 Duration of menses: 3-5 days Date of last menstrual period: 01/08/25 Total pregnancies: 3 Full term: 2 Number of Living Children: 2 Ab induced: 1 Date of last pap smear: 05/04/23 History of abnormal pap smear: Yes (TC,HPV +) Review of Systems Const All systems reviewed & are unremarkable except as noted in HPI and below Card Reports as per HPI Resp Reports as per HPI GI Reports as per HPI and Reports no additional complaints Reports as per HPI Physical Exam Vital Signs: Last Vital Signs BP 100/60 01/10/25 14:10 BMI result Body Mass Index 21.8 Const General: cooperative, healthy appearing and comfortable Chest Chest palpation & inspection: normal inspection of the chest and normal palpation of entire chest wall Breast/axilla inspection: normal inspection of the breasts and normal inspection of the axillae Breast/axilla palpation: normal palpation of the breasts, normal palpation of the axillae and no axillary lymphadenopathy Resp Effort & Inspection: normal respiratory effort Auscultation: clear to auscultation bilaterally Percussion: percussion normal Cardio Palpation: normal PMI Rate: regular rate Rhythm: regular rhythm Heart sounds: no murmurs and no rubs Peripheral pulses: Peripheral pulses 2+ throughout GI Inspection: Yes normal to inspection Palpation (GI): Soft to palpation, nontender, no guarding, not rigid and No hepatosplenomegaly present Percussion: Yes normal to percussion Auscultation: normal bowel sounds Rectal Exam - Female: deferred General: Yes bladder normal to palpation External Female Exam: No lesion Speculum Exam - Vagina: normal appearance of the vagina, normal palpation, normal vaginal discharge and not erythematous Speculum Exam - Cervix: normal appearance of the cervix, normal palpation and Other cervical findings present (IUD string in place) Bimanual exam- vagina & uterus: normal bimanual exam, normal palpation, uterine size normal, bladder normal to palpation, consistency normal and normal palpation Bimanual Exam- Adnexa, other: normal adnexae, no masses and no tenderness Assessment & Plan Assessment & Plan (1) Well woman exam with routine gynecological exam: Comment: Persistent TC 1 in 05/05 status post LEEP cone with post cone ECC Code(s): Z01.419 - Encounter for gynecological examination (general) (routine) without abnormal findings Category: Medical Plan: Cotesting done. Counseled the patient about the recommended dietary allowance of 1000 mg of Calcium & 600 IU of vitamin D. The patient was instructed to perform monthly self-breast exams and to schedule an annual exam in a year; All questions answered and the patient verbalized understanding. Instructed the patient to schedule annual exam in a year Coding Level of Care Code Est Pt Prev Care 18-39y(22596) Diagnoses Well woman exam with routine gynecological exam Z01.419
[2025-01-10 14:10] VITALS: BP 100/60; BMI 21.8
--- OUTSIDE RECORDS SUMMARY | 2025-01-10 15:12 | XMS_ITS | Encounter Summary ---
Author Organization [employer] Address [address] [facility] 7t [place] [address] Care Team Providers Care Bottle Capping Machine Operator Name Role Phone Eneida Cantu Primary Care Provider [phone] Encounter Details Date Type Department Care Team ([facility] st Contact Info) Description 01/07/2023 Orders Only [facility] MED[facility] [address] [place] [address] Provider, Historical, Social History Tobacco Use Types Packs/Day Years Used Date Smoking Tobacco: Never Smokeless Tobacco: Never Alcohol Use Standard Drinks/Week Comments Never 0 (1 standard drink = 0.6 oz pur e alcohol) Comments Unknown Sex and Gender Information Value Date Recorded Sex Assigned at Female 02/09/2022 10:22 AM EDT Legal Sex Female 10:22 AM EDT Gender Identity Choose not to disclose 10:22 AM EDT Sexual Orientation Choose not to disclose 2021 10:22 AM EDT documented as of this encounter Plan of Treatment Not on file documented as of this encounter Procedures Procedure Name Priority Date/Time Associated Diagnosis Comments HM PAP/HPV Routine 08/27/2020 documented in this encounter Results * Hm Pap Smear (08/27/2020) us Historical Provider HEALTH MAINTENANCE Final Result documented in this encounter Visit Diagnoses Not on filedocumented in this encounter Care Teams Bottle Capping Machine Operator Relationship Specialty Start Date End Date Eneida Cantu FNP [address] [place] [address] PCP - General Family Medicine 09/23/21 documented as of this encounter
--- OUTSIDE RECORDS SUMMARY | 2025-01-10 15:12 | XMS_ITS | Clinical Summary ---
Author Organization [employer] Address [address] [facility] 7t [place] [address] Care Team Providers Care Environmental Compliance Inspector Name Role Phone NaniEneida stone DIANELYS Primary Care Provider [phone] Allergies No known active allergies Medications acetaminophen [...] showed TC 1. Continue to follow with [facility] CUST[facility] COMPLIANCE SPECIALIST -Optometry: UTD at outside clinic -Dental: establish with dental home -COVID-19: primary series complete, encouraged to get booster -Outstanding vaccines: flu in fall (hx of immunity to Hep B) TC I (cervical intraepithelial neoplasia I) Overview (05/28/2022): -History of ASCUS x 2 w/ +HPV -Cervical biopsy 08/11/[address] 1 ([facility] Dr. Jacobs) -Continue to follow with [facility]UST[facility] COMPLIANCE SPECIALIST for history of abnormal pap smear Hand eczema 11/01/2017 Resolved Problems Problem Noted Date Diagnosed Date Resolved Date Atypical squamous cells of u ndetermined significance on cytologic smear of cervix (ASC-US) 05/28/2022 05/28/2022 Immunizations Immunization Administration Dates Next Due HPV 9-Valent 10/31/2020,08/27/2020 HPV, Quadrivalent 10/31/2020,,09/08/2013,12/30,09/09/2012 Hep B, adult 09/18/2013 Influenza injectable quadriv alent preservative free 02/18/2020 Influenza, IIV3, injectable 02/18/2020 Influenza, Split (incl. isidro fied surface antigen) 12/30/2012 MMR 10/23/2013,09/18/2013 Meningococcal [...] 75 07/03/2024 9:33 AM EDT Temperature 36.5 C (97.7 F) 07/03/2024 9:33 AM EDT Respiratory Rate 16 07/03/2024 9:33 AM EDT [...] 3 - 19+ 3-dose series) 10/16/2013 09/18/2013 Cervical Cancer Screening 08/29/2024 HPV/Cotest 08/29/2024 04/30/2023, 08/10, 08/27/2020 Pap Smear 08/29/2024 04/30/2023, 08/27/2020 Diagnostic Breast Imaging 09/06/2024 08/07/2024, COVID-19 Vaccine ( season) 2024 05/07/2022, 08/21/2020, 07/24/2020 Influenza Vaccine (#1) 2024 , 02/18/2020, 12/30/2012 Mammogram 02/06/2025 08/07/2024, 08/07/2024 Family Planning (PISQ) [...] Years) and At-Risk Patients (6 to 49) Years Aged Out No longer eligible based on patient's age to complete this topic RSV under 20 months Aged Out No longe r eligible based on patient's age to complete this topic Rotavirus Vaccines Aged Out No longer eligible based on patient's age to complete this topic Procedures Procedure Name Priority Date/Time Associated Diagnosis Comments BI US BREAST LIMITED RIGHT STAT 08/07/2024 Mass of lower inner quadrant of right breast HPV MRNA E6/E7 REFLEX TO HPV 16, 18/45 Routine 04/30/2023 11:23 AM EST PAP SMEAR Routine 04/30/2023 11:23 AM EST LESLIE HISTORICAL HEPATITIS B SURFACE ANTIGEN* Routine 03/17/2021 3:40 PM EST from Last 3 Months or Most Recently Relevant to Health Maintenance Results * BI US Breast Limited Right (08/07/2024) Anatomical Region Laterality Modality Breast Right Ultrasound us Jackeline Whitehead CNM IM US PROCEDURES Final R esult * (ABNORMAL) HPV mRNA E6/E7 w/Reflex to HPV Genotypes 16, 18/45 (04/30/2023 11:23 AM EST) HPV nRNA E6/E7 Detected(A ) Not Detected [facility] Comment:Methodology: Transcr iption-Mediated AmplificationThis assay detects E6/E7 viral messenger RNA (mRNA) from 14high-risk HPV types (16,18,31,33,35,39,45,51,52,56,58,59,66,68).Cervical sources are required for HPV testing.If a vaginal source from a patient who has had atotal hysterectomy with removal of cervix wassubmitted, please contact the testing laboratoryfor alternative testing options.For additional information, please refer tohttp://education.Apprion/faq/YHI987z1(This link if provided for information/educational purposes only.)THIS TEST WAS PERFORMED AT:[facility] [place] [phone] ELMORE MD HPV 16 RNA NOT DETECTED NOT DETECTED [facility] HPV 18/45 RNA NOT DETECTED NOT DETECTED [facility] Comment:Methodology: Transcr iption Mediated AmplificationCervical sources are required for HPV testing.If a vaginal source from a patient who has had atotal hysterectomy with removal of cervix wassubmitted, please contact the testing laboratoryfor alternative testing options.THIS TEST WAS PERFORMED AT:[facility] [address] [phone] ELMORE MD 04/30/2023 11:2 3 AM EST 05/04/2023 9:30 AM EST us Generic External Data Provider LAB CYTOLOGY YVETTE URIAS Final Result [facility] [address] [place] [phone] * Pap Smear (04/30/2023 11:23 AM EST) 04/30/2023 11:2 3 AM EST 05/04/2023 9:30 AM EST Narrative [facility] - 05/12/2023 1:47 PM EST ----- ------- Name: Carlton Trevizo Age/Sex: 28/F : 1995 Unit#: [id number] Attend Dr: Viviana Collins CNM Re04/30/23 Status: DEP REF Location: [facility] Disch: ----- ------- SPEC : [id number] RECD: 05/04/23 STATUS: ORTIZ CARTAGENA NUM: [id number] ADITI: 04/30/23-[address] [facility] [address]: Viviana Collins [facility] ENTERED: 05/04/23-1058 SP TYPE: Pap Smr OTHR DR: ORDERED: Pap Smear, PAP path review Interpretation General Category: Epithelial cell abnormality. Adequacy: Endocervical component present. Interpretation: Low grade squamous intraepithelial lesion (TC I). HPV mRNA E6/E7: DETECTED This assay detects E6/E7 viral messenger RNA (mRNA) from 14 high-risk HPV types (16, 18, 31, 33, 35, 39, 45, 51, 52, 56, 58, 59, 66, 68) HPV Type 16 RNA: Not Detected HPV Type 18/45 RNA: Not Detected HPV testing performed by [facility], [place], [place]. See reference laboratory portion of the EMR for entire report. This case was reviewed intradepartmentally. Clinical Information LMP: No menses, Mirena Previous PAP test: 08/28/20, HPV+ Material Received ThinPrep-Cervical ----- ------- Signed (signature on file) Kevin Rinaldi MD 05/12/23 1347 ----- ------- END OF REPORT Generic External Data Provider LAB CYTOLOGY KEYSHAWNKayla BRIDGETT Final Result Performing Organization Address [facility] Co de Phone Number [facility] [address] [place] [address] [phone] * HEPATITIS B SURFACE ANTIGEN* (03/17/2021 3:40 PM EST) [facility] Hepatitis B Surface Antigen Negative Negative [facility] Hepatitis C Antibody Nonreactive Nonreactive [facility] Comment: Antibodies to HCV not detected; does not exclude early acute HCV infection. HIV AB/AG Nonreactive Nonreactive [facility] Comment: HIV-1 p24 Ag and/or HIV-1/HIV-2 Ab not detected. A test result that is nonreactive does not exclude the possibility of exposure to or infection with HIV-1 and/or HIV-2. Nonreactive results in this assay for individuals with prior exposure to HIV-1 and/or HIV-2 may be due to antigen and antibody levels that are below the limit of detection of this assay. The [employer]er HIV Ag/Ab Combo assay result and supplemental assay results should be interpreted in conjunction with the patient's clinical presentation, history and other laboratory results. If the results are inconsistent with clinical evidence, additional testing is suggested to confirm the result. 03/17/2021 3:40 PM EST us Yadira Jose HISTORICAL/NON ORDERABLE LABS Fi nal Result Performing Organization Address City/[facility]/ZIP Co de Phone Number [facility] [address] from Last 3 Months or Most Recently Relevant to Health Maintenance Insurance [facility] C3 Care Teams Environmental Compliance Inspector Relationship Specialty Start Date End Date Eneida Cantu FNP [address] [place] [phone] PCP - General Family Medicine 09/23/21
== END 2025-01-10 15:03 | disposition home or self-care (01) ==
LOC: HO.HWS 13:59
PROVIDERS: PCP Internal Medicine Geriatric Medicine; Visit Provider Obstetrics & Gynecology
DX: Z01.419 Encounter for gynecological examination (general) (routine) without abnormal findings (principal)
CPT/HCPCS: 99395; 99459

== ENCOUNTER 2025-01-10 13:59 | Outpatient (REF) | payer MEDICAID, SELFPAY | END 2025-01-10 14:00 | disposition home or self-care (01) | LOC: HO.LNP 13:59 | PROVIDERS: PCP Internal Medicine Geriatric Medicine; Visit Provider Obstetrics & Gynecology | DX: Z01.419 Encounter for gynecological examination (general) (routine) without abnormal findings (principal); N87.0 Mild cervical dysplasia; Z98.51 Tubal ligation status | CPT/HCPCS: 87626; 88175; 99395 ==

== ENCOUNTER 2025-01-18 10:39 | Outpatient (REF) | payer MEDICAID, SELFPAY ==
--- NOTE | ~2025-01-18 | US_ITS ---
CLINICAL HISTORY: N20.0 - Calculus of kidney US Renal Comparison: US/SR - US KIDNEY BILATERAL - 02/04/24 09:37 EDT Findings: Right kidney normal size and echotexture, 11.8 cm length. 14 mm lower pole cyst. Tiny nonobstructing calculi the largest measuring up to 3 mm. Left kidney normal size and echotexture, 11.2 cm length. No collecting system dilatation of either kidney. Normal color Doppler. IMPRESSION: No current hydronephrosis. A few tiny nonobstructing calculi are suggested within the right kidney. No current left renal calculus identified. This document has been electronically signed by: Yony Chen MD on 01/19/2025 08:29:34
== END 2025-01-18 10:40 | disposition home or self-care (01) ==
LOC: HO.US 10:39
PROVIDERS: PCP Internal Medicine Geriatric Medicine; Visit Provider Nurse Practitioner Family
DX: N20.0 Calculus of kidney (principal)
CPT/HCPCS: 76775

== ENCOUNTER → 2025-01-18 10:42 | Outpatient (BNV) | payer MEDICAID, SELFPAY | PROVIDERS: PCP Internal Medicine Geriatric Medicine; Visit Provider Radiology Vascular & Interventional Radiology | DX: N20.0 Calculus of kidney (principal) | CPT/HCPCS: 76775 ==

== ENCOUNTER 2025-03-05 11:42 | Outpatient (AMB) | payer MEDICAID, SELFPAY ==
--- NOTE | 2025-03-05 11:46 | MHC.OFFVIS ---
Vital Signs 03/05/25 11:48 Height 5 ft 2 in Weight 119 lb BMI 21.8 Intake Visit Reasons: pap only Communication Equipment Repairer Required: Yes Communication Equipment Repairer Language: Rush Seater Services: Communication Equipment Repairer Present (in person) Communication Equipment Repairer Name: Beverly MCGRAW Information Interpreted: non-clinical & clinical Diabetes Trainer: Diabetes Trainer Present (Beverly MCGRAW) Accompanied by: Self / Same As Patient Allergies No Known Allergies (No Known Allergies*) Allergy (Verified 01/10/25 14:10) HPI Comments Details: Presenting for repeat Pap smear. Last Pap smear done on 01/11/2025 showed the following: General Category: Non-diagnostic. Adequacy: Unsatisfactory for evaluation. Interpretation: Insufficient epithelial component present; acid-wash performed. Recommend repeat. 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 All questions answered, the patient verbalized understanding Coding Level of Care Code Est Pt Level 3 (75813) Diagnoses Unsatisfactory cervical Papanicolaou smear R87.615
[2025-03-05 11:48] VITALS: BMI 21.8
--- OUTSIDE RECORDS SUMMARY | 2025-03-05 15:36 | XMS_ITS | Encounter Summary ---
Author Organization [employer] Address [address] [facility] 7t [place] [address] Care Team Providers Care Freight Engineer Name Role Phone Eneida Cantu Primary Care Provider [phone] Encounter Details Date Type Department Care Team ([facility] st Contact Info) Description 01/07/2023 Orders Only [facility] [address] [place] [address] Provider, Historical, Social History Tobacco Use Types [...] on filedocumented in this encounter Care Teams Freight Engineer Relationship Specialty Start Date End Date Eneida Cantu FNP [address] [place] [address] PCP - General Family Medicine 09/23/21 documented as of this encounter
--- OUTSIDE RECORDS SUMMARY | 2025-03-05 15:36 | XMS_ITS | Clinical Summary ---
Author Organization [employer] Address [address] [facility] 7t [place] [address] Care Team Providers Care Patient Care Coordinator Name Role Phone NaniEneida stone DIANELYS Primary Care Provider [phone] Allergies No known active allergies Medications acetaminophen [...] TC 1. Continue to follow with [facility] -Optometry: UTD at outside clinic -Dental: establish with dental home -COVID-19: primary series complete, encouraged to get booster -Outstanding vaccines: flu in fall (hx of immunity to Hep B) TC I (cervical intraepithelial neoplasia I) Overview (05/28/2022): -History of ASCUS x 2 w/ +HPV -Cervical biopsy 08/11/19 that showed TC 1 ([facility] Dr. Jacobs) -Continue to follow with [facility] for history of abnormal pap smear Hand eczema 11/01/2017 Resolved Problems Problem Noted Date Diagnosed Date Resolved Date Atypical squamous cells of u ndetermined significance on cytologic smear of cervix (ASC-US) 05/28/2022 05/28/2022 Encounters Date Type Department Care Team Description 01/18/2025 Orders Only [facility] External Provider, [facility] from Last 3 Months Immunizations Immunization Administration [...] 3 - 19+ 3-dose series) 10/16/2013 09/18/2013 Diagnostic Breast Imaging 09/06/2024 08/07/2024, COVID-19 Vaccine ( season) 2024 05/07/2022, 08/21/2020, 07/24/2020 Influenza Vaccine (#1) 2024 , 02/18/2020, 12/30/2012 Mammogram 02/06/2025 08/07/2024, 07/12, 08/07/2024 Family Planning (PISQ) 07/03/2025 07/03/2024 Tobacco Screening 07/03/2025 07/03/2024 Cervical Cancer Screening 01/10/2026 HPV/Cotest 01/10/2026 01/10/2025, 04/12, 08/27/2020, Additional history exists Pap Smear 01/10/2026 01/10/2025, 04/12, 08/27/2020 DTaP/Tdap/Td Vaccines (3 - Td or Tdap) [...] Procedure Name Priority Date/Time Associated Diagnosis Comments US RENAL COMPLETE Routine 01/19/2025 8:2 9 AM EDT PAP SMEAR Routine 01/10/2025 3:01 PM EDT HPV DNA, LOW/HIGH RISK Routine 01/10/2025 3:01 PM EDT BI US BREAST LIMITED RIGHT STAT 08/07/2024 Mass of lower inner quadrant of right breast ZZZ HISTORICAL HEPATITIS B SURFACE ANTIGEN* Routine 03/17/2021 3:40 PM EST from Last 3 Months or Most Recently Relevant to Health Maintenance Results * US Renal Complete (01/19/2025 8:29 AM EDT) Anatomical Region Laterality Modality Kidney Ultrasound 01/19/2025 8:29 AM EDT Narrative 01/19/2025 8:30 AM EDT [address] [address] Ultrasound Report Signed Patient: Carlton Trevizo MR#: [id number] : 1995 Acct:[id number] Age/Sex: 29 / F ADM Date: 01/18/25 Loc: HO.US Attending Dr: Yazmin VILLEGAS Ordering Physician: Yazmin Del Valle Date of Service: 01/18/25 Procedure(s): US renal BI Accession Number(s): [id number] cc: Yazmin Del Valle; Name,Fritz PARSONS Reason for Exam: N20.0 - Calculus of kidney CLINICAL HISTORY: N20.0 - Calculus of kidney US Renal Comparison: US/SR - US KIDNEY BILATERAL - 02/04/24 09:37 EDT Findings: Right kidney normal size and echotexture, 11.8 cm length. 14 mm lower pole cyst. Tiny nonobstructing calculi the largest measuring up to 3 mm. Left kidney normal size and echotexture, 11.2 cm length. No collecting system dilatation of either kidney. Normal color Doppler. IMPRESSION: No current hydronephrosis. A few tiny nonobstructing calculi are suggested within the right kidney. No current left renal calculus identified. This document has been electronically signed by: Yony Chen MD on 01/19/2025 08:29:34 Dictated By: Yony Chen MD Signed By: <Electronically signed by Yony Chen MD in OV> 01/19/25829 DD/ 8 TD/TT: 01/19/25828 Coil Taper: Procedure Note Donotuseinterpreter, Image - 01/19/[address] [address] Ultrasound Report Signed Patient: Carlton Trevizo MR#: [id number] : 1995Acct:[id number] Age/Sex: 29 / FADM Date: 01/18/25 Loc: HO.US Attending Dr: Yazmin VILLEGAS Ordering Physician: Yazmin Del Valle Date of Service: 01/18/25 Procedure(s): US renal BI Accession Number(s): [id number] cc: Del ValleYazmin [facility]-; Name,Fritz PARSONS Reason for Exam: N20.0 - Calculus of kidney CLINICAL HISTORY: N20.0 - Calculus of kidney US Renal Comparison: US/SR - US KIDNEY BILATERAL - 02/04/24 09:37 EDT Findings: Right kidney normal size and echotexture, 11.8 cm length. 14 mm lower pole cyst. Tiny nonobstructing calculi the largest measuring up to 3 mm. Left kidney normal size and echotexture, 11.2 cm length. No collecting system dilatation of either kidney. Normal color Doppler. IMPRESSION: No current hydronephrosis. A few tiny nonobstructing calculi are suggested within the right kidney. No current left renal calculus identified. This document has been electronically signed by: Yony Chen MD on 01/19/2025 08:29:34 Dictated By: Yony Chen MD Signed By: <Electronically signed by Yony Chen MD in OV> 01/19/25829 DD/ 8 TD/TT: 01/19/25828 Coil Taper: us [facility] External Provider IMG US PROCEDURES Final Result * HPV DNA, Low/High Risk (01/10/2025 3:01 PM EDT) HPV High Risk Negative Negative [facility] HPV Genotype 16 Negative Negative [facility] HPV Genotype 18 Negative Negative [facility] Comment:HPV testing performe d at [facility] (CLIA#[id number]), [address] [place] [address].Testing for HPV was performed using the [employer] Talyst0system. The presence of HPV in the female genital tract isassociated with a number of diseases, including cervicalcarcinoma. The HPV DNA high risk pool tests for HPV 31, 33,35, 39, 45, 51, 52, 56, 58, 59, 66 and 68. The testing forHPV 16 and 18 genotypes has also been performed. A positiveresult indicates detection of nucleic acid sequences fromone or more subtypes, whereas a negative result indicatessuch sequences were not detected. 01/10/2025 3:01 PM EDT 01/11/2025 7:25 AM EDT us Generic External Data Provider LAB BLOOD ORDERAB LES Final Result [facility] [address] [place] [phone] * Pap Smear (01/10/2025 3:01 PM EDT) 01/10/2025 3:01 PM EDT 01/11/2025 7:25 AM EDT Narrative [facility] - 01/17/2025 6:56 PM EDT ----- ------- Name: Carlton Trevizo Age/Sex: 29/F : 1995 Unit#: [id number] Attend Dr: Ryan Jacobs MD Re01/10/25 Status: DEP REF Location: HO.LNP Disch: ----- ------- SPEC : [id number] RECD: 01/11/25 STATUS: ORTIZ CARTAGENA NUM: [id number] ADITI: 01/10/25150 [facility] DR: Ryan Jacobs MD ENTERED: 01/11/25 SP TYPE: Pap Smr OTHR DR: Fritz Griffith MD ORDERED: Pap Smear, PAP path review Interpretation General Category: Non-diagnostic. Adequacy: Unsatisfactory for evaluation. Interpretation: Insufficient epithelial component present; acid-wash performed. Recommend repeat. HPV High Risk: Negative HPV Genotyping 16: Negative HPV Genotyping 18: Negative Clinical Information LMP: Unknown date Previous PAP test: 05/04/2023, LGSIL Other history: Cervical intraepithelial neoplasia grade 1 Material Received ThinPrep-Cervical PAP Disclaimer As of February 02, 2024, the technical services to include automated prescreening performed by the ThinPrep Imaging System, PAP screening and HPV testing will be performed at [facility] (CLIA #[id number]), [address] [place] [address]. Testing for HPV was performed using the [employer] Talyst0 system. The presence of HPV in the female genital tract is associated with a number of diseases, including cervical carcinoma. The HPV DNA high risk pool tests for HPV 31, 33, 35, 39, 45, 51, 52, 56, 58, 59, 66 and 68. The testing for HPV 16 and 18 genotypes has also been performed. A positive result indicates detection of nucleic acid sequences from one or more subtypes, whereas a negative result indicates such sequences were not detected. All professional services are performed by [facility] ([address] [place], [place] [id number]; ; CLIA #[id number]). The PAP Test is a screening procedure with the inherent possibility of both false negative and false positive results. Results should be interpreted in the context of historic and current clinical findings. Reliability of the PAP Test is enhanced by performing the test on a regular repetitive basis. CONTINUED ON NEXT PAGE ----- ------- Name: Carlton Trevizo Age/Sex: 29/F : 1995 Unit#: [id number] Attend Dr: Ryan Jacobs MD Re01/10/25 Status: BRITTANY [place] Location: LNP Disch: ----- ------- SPEC : [id number] RECD: 01/11/25 STATUS: ORTIZ CARTAGENA NUM: [id number] ADITI: 01/10/25 [facility] DR: Ryan Jacobs MD ENTERED: 01/11/255168 SP TYPE: Pap Smr OTHR DR: Fritz Griffith MD ORDERED: Pap Smear, PAP path review Copies To: Fritz Griffith MD [address] [address] Ryan Jacobs MD [facility] [address] [place] [address] [address] [place] [address] ----- ------- Signed (signature on file) Kandis Silverio 01/17/25 1856 ----- ------- END OF REPORT us Generic External Data Provider LAB CYTOLOGY YVETTE URIAS Final Result Performing Organization Address [facility]/ZIP Co de Phone Number [facility] [address] [place] [address] [phone] * BI US Breast Limited Right (08/07/2024) Anatomical Region Laterality Modality Breast Right Ultrasound us Jackeline Whitehead CN IMG US PROCEDURES Final R esult * HEPATITIS B SURFACE ANTIGEN* (03/17/2021 3:40 PM EST) Hepatitis B Surface Antigen Negative Negative [facility] Hepatitis C Antibody Nonreactive Nonreactive [facility] Comment: Antibodies to HCV not detected; does not exclude early acute HCV infection. HIV AB/AG Nonreactive Nonreactive [facility] Comment: HIV-1 p24 Ag and/or [...] of detection of this assay. The [employer] Payable Lead HIV Ag/Ab Combo assay result and supplemental assay results should be interpreted in conjunction with the patient's clinical presentation, history and other laboratory results. If the results are inconsistent with clinical evidence, additional testing is suggested to confirm the result. 03/17/2021 3:40 PM EST us Yadira Jose HISTORICAL/NON ORDERABLE LABS Fi nal Result [facility] [address] from Last 3 Months or Most Recently Relevant to Health Maintenance Insurance [facility] C3 Care Teams Patient Care Coordinator Relationship Specialty Start Date End Date Eneida Cantu FNP [address] [place] [phone] PCP - General Family Medicine 09/23/21
== END 2025-03-05 12:05 | disposition home or self-care (01) ==
LOC: HO.HWS 11:42
PROVIDERS: PCP Internal Medicine Geriatric Medicine; Visit Provider Obstetrics & Gynecology
DX: R87.615 Unsatisfactory cytologic smear of cervix (principal)
CPT/HCPCS: 99213

== ENCOUNTER 2025-03-05 11:42 | Outpatient (REF) | payer MEDICAID, SELFPAY | END 2025-03-05 11:43 | disposition home or self-care (01) | LOC: HO.LNP 11:42 | PROVIDERS: PCP Internal Medicine Geriatric Medicine; Visit Provider Obstetrics & Gynecology | DX: R87.615 Unsatisfactory cytologic smear of cervix (principal) | CPT/HCPCS: 88175; 99212 ==

== ENCOUNTER 2025-03-06 08:25 | Outpatient (AMB) | payer MEDICAID, SELFPAY ==
--- NOTE | 2025-03-06 08:26 | A.OFFVIS_ITS ---
Intake Visit Reasons: US/[facility]ol[facility] Intake Note: Patient is present for US/LITHOL[facility] Urology Medication:NONE Antibiotic Allergy:NONE Blood Thinner:NONE Member Of The [employer] Required: No Allergies No Known Allergies (No Known Allergies*) Allergy (Verified 03/06/25 10:05) Medication List - Last Reconciled 03/06/25 by NELLY Watt epinephrine IM ibuprofen 600 mg PO QID PRN HPI Comments Details: Carlton is a very pleasant 29-year-old female patient of Dr. Griffith. She is being followed up on today for her history of nephrolithiasis. In discussion with the patient today she reports to be doing and feeling well. She reports since her last office visit here approximately 6 months ago she has had episodes of bladder pressure and flank pain and believes she has passed kidney stones. Most recent renal imaging does note less stone burden so we did discuss possibility of of passage of stones. Most recent renal imaging results were reviewed. Renal ultrasound 02/03 no current hydronephrosis noted bilaterally. A few tiny nonobstructing calculi are suggested within the right kidney no left renal calculi noted. Recent 24 hour Litholink results reviewed with the patient today. 03/06 urine volume of 1.6 L. we did discuss increase in urine volume when compared to previously however continues to remain borderline low. She currently denies any bothersome urinary issues. She denies urinary urgency, urinary frequency, incontinence, nocturia, hematuria, dysuria, foul smelling urine, changes to urinary stream, flank pain, fever, and or chills. She is happy with her current voiding parameters. We discussed the importance of adequate hydration relation to nephrolithiasis as well as overall health and well-being. She discusses her longstanding history of nephrolithiasis and has had previous lithotripsies in the past. All questions were answered. She otherwise offers no other issues or concerns at this time. 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 Gender identity: Female Female Reproductive History Menstrual Age of Menarche: 16 Review of Systems Const All systems reviewed & are unremarkable except as noted in HPI and below Physical Exam Const General: cooperative Orientation/consciousness: patient oriented x3 Resp Effort & Inspection: able to speak in complete sentences Neuro General: patient oriented x3 Psych Attitude: cooperative Thought process: Normal thought process present Thought content: Normal thought content present Insight: Fair insight present (Psych) Judgement: Fair judgement present (Psych) Telehealth Telehealth Telehealth Platform: Telephone Location of provider rendering services: practice address Location of patient: address on file Patient Identification confirmed using: Name, : Yes Telehealth method: video Patient verbally consented to treatment: Yes Patient verbally consented to billing insurance company: Yes Patient informed of any privacy concerns related to visit: Yes Minutes spent on Phone/Video with Pt.: 20 Results Reviewed Results Reviewed: Date of Service: 01/18/25 Procedure(s): US renal BI Findings: Right kidney normal size and echotexture, 11.8 cm length. 14 mm lower pole cyst. Tiny nonobstructing calculi the largest measuring up to 3 mm. Left kidney normal size and echotexture, 11.2 cm length. No collecting system dilatation of either kidney. Normal color Doppler. IMPRESSION: No current hydronephrosis. A few tiny nonobstructing calculi are suggested within the right kidney. No current left renal calculus identified. Assessment & Plan Assessment & Plan (1) Kidney stone: Code(s): N20.0 - Calculus of kidney Category: Medical Plan Recent renal imaging results reviewed with the patient today; as noted above. Recent 24 hour urine collection results reviewed with the patient today; as noted above. We did discussed the importance of adequate hydration relation to nephrolithiasis as well as overall health and well-being. We will continue with surveillance monitoring. Start vitamin B6 as discussed and prescribed. We discussed adding 1 oz of lemon juice to water daily. All questions were answered. Will obtain renal ultrasound and KUB in 1 year. Follow-up in 1 year with imaging to be completed prior; or sooner with any issues, concerns, and or questions. Orders: Orders US renal BI 1 Year N20.0 - Calculus of kidney XR KUB 1 Year N20.0 - Calculus of kidney Medications: New pyridoxine (vitamin B6) (Vitamin B-6) 100 mg PO DAILY 90 tabs 4RF 90 days Patient Instructions: The patient had an opportunity to ask questions regarding the treatment plan. All questions were answered. Physical exam, labs, and imaging were discussed and reviewed in detail. As well as risks, benefits, and discussion of treatment choices. No major barriers to understanding were identified. The patient expressed understanding and agreement with the above treatment plan. The patient was made aware they should contact our office by phone for worsening of their current condition, the appearance of new symptoms, or with any questions or concerns. Compliance is encouraged with any medications and follow up testing that is ordered. It is a privilege to be allowed the opportunity to participate in? your urological care.? Again, if you have any questions or concerns If you have any questions or concerns please do not hesitate to contact me. The office is [phone]. This note is constructed using voice recognition software. While every effort has been made to ensure accuracy electric blanket wirer errors may have been included. Yours sincerely, NELLY Watt Coding Level of Care Code Tele Est Pt Level 3 (53712) Diagnoses Kidney stone N20.0
--- OUTSIDE RECORDS SUMMARY | 2025-03-06 08:41 | XMS_ITS | Clinical Summary ---
Author Organization [employer] Address [address] [facility] [address] [place] [address] Care Team Providers Care Poultry Killer Name Role Phone NaniEneida stone DIANELYS Primary Care Provider [phone] Allergies No known active allergies Medications acetaminophen [...] showed TC 1. Continue to follow with [facility] -Optometry: UTD at outside clinic -Dental: establish with dental home -COVID-19: primary series complete, encouraged to get booster -Outstanding vaccines: flu in fall (hx of immunity to Hep B) TC I (cervical intraepithelial neoplasia I) Overview (05/28/2022): -History of ASCUS x 2 w/ +HPV -Cervical biopsy 08/11/19 that showed TC 1 ([facility] Dr. Jacobs) -Continue to follow with [facility] for history of abnormal pap smear Hand eczema 11/01/2017 Resolved Problems Problem Noted Date Diagnosed Date Resolved Date Atypical squamous cells of u ndetermined significance on cytologic smear of cervix (ASC-US) 05/28/2022 05/28/2022 Encounters Date Type Department Care Team Description 01/18/2025 Orders Only [facility] External Provider, [facility] from Last 3 Months Immunizations Immunization Administration [...] AM EDT Narrative 01/19/2025 8:30 AM EDT [address] [address] Ultrasound Report Signed Patient: Carlton Trevizo MR#: [id number] : 1995 Acct:[id number] Age/Sex: 29 / F ADM Date: 01/18/25 Loc: HO.US Attending Dr: Yazmin VILLEGAS Ordering Physician: Yazmin Del Valle Date of Service: 01/18/25 Procedure(s): US renal BI Accession Number(s): [id number] cc: Yazmin Del Valle; Name,Fritz PARSONS Reason [...] in OV> 01/19/25829 DD/ 8 TD/TT: 01/19/25828 Macadam Raker: Procedure Note Donotuseinterpreter, Image - 01/19/[address] [address] Ultrasound Report Signed Patient: Carlton Trevizo MR#: [id number] : 1995Acct:[id number] Age/Sex: 29 / FADM Date: 01/18/25 Loc: HO.US Attending Dr: Yazmin VILLEGAS Ordering Physician: Yazmin Del Valle Date of Service: 01/18/25 Procedure(s): US renal BI Accession Number(s): [id number] cc: Del ValleYazmin [facility]-; Name,Fritz PARSONS Reason for Exam: N20.0 - [...] in OV> 01/19/25829 DD/ 8 TD/TT: 01/19/25828 Macadam Raker: us [facility] External Provider IMG US PROCEDURES Final Result * HPV DNA, Low/High Risk (01/10/2025 3:01 PM EDT) HPV High Risk Negative Negative [facility] HPV Genotype 16 Negative Negative [facility] HPV Genotype 18 Negative Negative [facility] Comment:HPV testing performe d at [facility] (CLIA#[id number]), [address] [place] [phone].Testing for HPV was performed using the [employer] AquaMobile0system. The presence of HPV in the female [...] Provider LAB BLOOD ORDERAB LES Final Result [facility] [address] [place] [phone] * Pap Smear (01/10/2025 3:01 PM EDT) 01/10/2025 3:01 PM EDT 01/11/2025 7:25 AM EDT Narrative [facility] - 01/17/2025 6:56 PM EDT ----- ------- Name: Carlton Trevizo Age/Sex: 29/F : 1995 Unit#: [id number] Attend Dr: Ryan Jacobs MD Re01/10/25 Status: DEP REF Location: HO.LNP Disch: ----- ------- SPEC : [id number] RECD: 01/11/25 STATUS: ORTIZ CARTAGENA NUM: [id number] ADITI: 01/10/25150 [facility] DR: Ryan Jacobs MD ENTERED: 01/11/25 SP [...] and HPV testing will be performed at [facility] (CLIA #[id number]), [address] [place] [address]. Testing for HPV was performed using the [employer] AquaMobile0 system. The presence of HPV in the [...] detected. All professional services are performed by [facility] ([address] [place], [place] [id number]; ; CLIA #[id number]). The PAP Test is a screening procedure with the inherent possibility of both false negative and false positive results. Results should be interpreted in the context of historic and current clinical findings. Reliability of the PAP Test is enhanced by performing the test on a regular repetitive basis. CONTINUED ON NEXT PAGE ----- ------- Name: aCrlton Trevizo Age/Sex: 29/F : 1995 Unit#: [id number] Attend Dr: Ryan Jacobs MD Re01/10/25 Status: BRITTANY CLINTON Location: LNP Disch: ----- ------- SPEC : [id number] RECD: 01/11/25 STATUS: ORTIZ CARTAGENA NUM: [id number] ADITI: 01/10/25 [facility] DR: Ryan Jacobs MD ENTERED: 01/11/259554 SP TYPE: Pap Smr OTHR DR: Fritz Griffith MD ORDERED: Pap Smear, PAP path review Copies To: Fritz Griffith MD [address] [address] Ryan Jacobs MD [facility] [address] [place] [address] Drive [address] [place] [phone] ----- ------- Signed (signature on file) Kandis Silverio 01/17/25 1856 ----- ------- END OF REPORT us Generic External Data Provider LAB CYTOLOGY YVETTE URIAS Final Result Performing Organization Address [facility]/ZIP Co de Phone Number [facility] [address] [place] [address] [phone] * BI US Breast Limited Right (08/07/2024) Anatomical Region Laterality Modality Breast Right Ultrasound us Jackeline Whitehead CN IMG US PROCEDURES Final R esult * HEPATITIS B SURFACE ANTIGEN* (03/17/2021 3:40 PM EST) Hepatitis B Surface Antigen Negative Negative [facility] Hepatitis C Antibody Nonreactive Nonreactive [facility] Comment: Antibodies to HCV not [...] of detection of this assay. The [facility] HIV Ag/Ab Combo assay result and supplemental assay results should be interpreted in conjunction with the patient's clinical presentation, history and other laboratory results. If the results are inconsistent with clinical evidence, additional testing is suggested to confirm the result. 03/17/2021 3:40 PM EST us Yadira Jose HISTORICAL/NON ORDERABLE LABS Fi nal Result [facility] [address] from Last 3 Months or Most Recently Relevant to Health Maintenance Insurance [facility] C3 Care Teams Poultry Killer Relationship Specialty Start Date End Date Eneida Cantu FNP [address] [place] [phone] PCP - General Family Medicine 09/23/21
--- OUTSIDE RECORDS SUMMARY | 2025-03-06 08:41 | XMS_ITS | Encounter Summary ---
Author Organization [employer] Address [address] [facility] [address] [place] [address] Care Team Providers Care Operator Cavity Pump Name Role Phone Eneida Cantu Primary Care Provider [phone] Encounter Details Date Type Department Care Team ([facility] st Contact Info) Description 01/07/[address] [facility] [address] [place] [address] Provider, Historical, Social History Tobacco Use Types [...] on filedocumented in this encounter Care Teams Operator Cavity Pump Relationship Specialty Start Date End Date Eneida Cantu FNP [address] [place] [address] PCP - General Family Medicine 09/23/21 documented as of this encounter
== END 2025-03-06 10:08 | disposition home or self-care (01) ==
LOC: HO.HUSH 08:25
PROVIDERS: PCP Internal Medicine Geriatric Medicine; Visit Provider Nurse Practitioner Family
DX: N20.0 Calculus of kidney (principal)
CPT/HCPCS: 99213